=== PATIENT | male | born 1990 | race Caucasian/White ===

== ENCOUNTER 2020-08-03 09:47 | Outpatient (REF) | payer BC, SELFPAY | END 2020-08-03 09:48 | disposition home or self-care (01) | LOC: HO.LAB 09:47 | PROVIDERS: Visit Provider Internal Medicine | DX: Z20.828 Contact with and (suspected) exposure to other viral communicable diseases (principal) | CPT/HCPCS: C9803; U0003 ==

== ENCOUNTER 2023-09-03 17:27 | Inpatient (IN) | payer MEDICAID, SELFPAY ==
[2023-09-03 17:38] VITALS: BP 130/66; PULSE 142; RESP 22; TEMP 36.7; O2SAT 98; BMI 25.1
--- NOTE | 2023-09-03 18:01 | ED.ALCOHOL ---
HPI - Alcohol General Chief Complaint: General Medical Stated Complaint: Panic Attack/Anxiety per ems Time Seen by Provider: 09/03/23 17:27 Source: patient and family Mode of arrival: EMS Limitations: no limitations History of Present Illness HPI narrative: 32 yo male with PMH of prior substance abuse including pills and cocaine, ETOH use - lots of wine but will not quantify no alcohol today woke up feeling sweaty, heart racing, anxiety, tremors. No prior hx of alcohol withdrawal seizures. He has no fevers, cp/sob. MD complaint: alcohol withdrawal Last drink: Days (ago) (1) Chronic alcohol use: Yes Recent trauma: No Associated symptoms: nausea, diaphoresis and tremors Treatments prior to arrival: none Related Data Allergies Allergy/AdvReac Type Severity Reaction Status Date / Time Unable to Assess Allergy Verified 09/03/23 17:45 Review of Systems Review of Systems: Constitutional : No Fever, No Chills, pos sweats ENT/Mouth : No Ear Pain, No Nasal Congestion, No sore throat Eyes: No Eye Pain, No Swelling, No Redness Cardiovascular : No Chest Pain, No SOB, pos palpitations Respiratory : No Cough, No Sputum, No Dyspnea Gastrointestinal : pos Nausea, No Vomiting, No Diarrhea, No Hematochezia, No Melena Genitourinary : No Dysuria, No Urinary Frequency, No Hematuria Musculoskeletal : No Myalgias Skin : No Skin Lesions, No rash Neuro : No Weakness, No Numbness, No Paresthesias, No Dizziness, No Headache Psych : positive Anxiety, no Depression, no SI/HI All other systems reviewed and are negative PMFSH Past Medical History Onset Date is defined in the Problem List Problems that require an onset date and time if occurred within 24 hrs of arrival to the ED Aortic Dissection and Rupture; Neurologic impairment; Cardiopulmonary Arrest; Endotracheal Intubation; Insertion or Replacement of Mechanical Circulatory Assist Device Medical History (Updated 09/03/23 @ 19:01 by Yany Bledsoe DO) Alcohol abuse Active substance abuse Social History Social History (Updated 09/03/23 @ 18:04 by Yany Bledsoe DO) Alcohol intake: current Alcohol intake frequency: 3 or more drinks per day Alcohol type: wine Patient Tobacco Use Status: Tobacco use Unknown Smoked in Last 30 Days: No Use of substances other than those prescribed or required for medical reasons: No Advance Directives: No Advance Directives Information Provided: No Physical Exam ED Vital Signs: Vital Signs - 24 hr 09/03/23 17:38 09/03/23 18:07 Temperature 98.1 F Pulse Rate 142 H 90 Respiratory Rate 22 H 17 Blood Pressure 130/66 131/81 Pulse Oximetry 98 96 Oxygen Delivery Method Room Air Room Air BMI result Body Mass Index 25.1 Appearance: Alert. Oriented X3. anxious mild acute distress. Eyes: Pupils equal, round and reactive to light. ENT: Pharynx dry MM, tongue fasciculations Neck: Normal inspection. Neck supple. CVS: tachycardic heart rate and rhythm. Pulses normal. Respiratory: No respiratory distress. Breath sounds normal. Abdomen: Soft and nontender. Skin: Skin warm and diaphoretic Normal skin color. Normal skin turgor. Extremities: No lower extremity edema. Neuro: Oriented X 3. No motor deficit. No sensory deficit. Course Course Course Narrative: still tremors and tongue fasciculations - will admit and start on phenobarb Medical Decision Making Medical Decision Making [facility] Narrative: 32 yo male hx of substance abuse - garth been drinking too much wine recently he will not quantify how much. he states no alcohol today, he is tremulous tachycardic, sweating. At this time labs, EKG, IV thiamine, IV ativan, he has no SI/HI. Will obtain basic labs and hydrate. No prior hx of seizures. Possible admit vs outpatient detox Differential Diagnosis Differential Diagnoses: The differential diagnosis associated with the presentation includes alcohol withdrawal, substance abuse, lyte abnormality Admission/Observation Consideration of admission/observation: Escalation of care including admission/observation considered admit for ETOH withdrawal start on phenobarb drip Consult Healthcare Provider Management of the patient was discussed with: Hospitalist (will admit) Lab Data [facility] Lab Attestation statement: I reviewed the patient's lab results. 09/03/23 17:55 09/03/23 17:55 Labs: Lab Results 09/03/23 Range/Units 17:55 WBC 5.8 (4.8-10.8) X10*3/uL RBC 4.87 (4.60-5.80) X10*6/uL Hgb 15.3 (14.0-18.0) g/dl Hct 44.3 (42.0-52.0) % MCV 91.0 (80.0-98.0) fL MCH 31.4 (27.0-33.0) pg MCHC 34.5 (31.0-36.0) g/dl RDW 13.6 (11.0-16.0) % Plt Count 203 (160-400) X10*3/uL MPV 8.9 L (9.4-12.4) fL Immature Gran % (Auto) 0.2 (0.0-0.4) % Neut % (Auto) 75.0 H (45-73) % Lymph % (Auto) 14.2 L (20-40) % [place] % (Auto) 9.1 (2-11) % Eos % (Auto) 0.3 (0-4) % Baso % (Auto) 1.2 (0-2) % Lymph # (Auto) 0.8 L (1.2-4.9) X10*3/uL [place] # (Auto) 0.5 (0.1-1.2) X10*3/uL Eos # (Auto) 0.0 (0.0-0.4) X10*3/uL Baso # (Auto) 0.1 (0.0-0.2) X10*3/uL Abs Immat Gran (auto) 0.01 (0.00-0.03) X10*3/uL Absolute Neuts (auto) 4.4 (2.0-8.3) x10*3/uL Absolute Nucleated RBC 0.000 (0.0-0.012) X10*3/uL Nucleated RBC % (auto) 0.0 (0.0-0.2) /100WBC Sodium 139 (135-145) mmol/L Potassium 4.1 (3.3-5.1) mmol/L Chloride 97 (96-108) mmol/L Carbon Dioxide 20 L (22-29) mmol/L Anion Gap 26 H (12-20) BUN 11 (9-16) mg/dL Creatinine 0.92 (0.5-1.4) mg/dL Estim Creat Clear Calc 110.4 Estimated GFR > 60 Random Glucose 125 H (60-115) mg/dL Calcium 11.5 H (8.4-10.2) mg/dL Magnesium 1.5 L (1.6-2.6) mg/dL Total Bilirubin 0.8 (0.0-1.0) mg/dL Direct Bilirubin 0.3 (0.0-0.5) mg/dL AST 298 H (5-37) U/L ALT 291 H (0-40) U/L Alkaline Phosphatase 113 (39-117) U/L Total Protein 8.9 H (6.5-8.0) g/dL Albumin 4.9 (3.5-5.0) g/dL Ethyl Alcohol < 10 mg/dL Influenza Type A (PCR) NEGATIVE (Negative) Influenza Type B (PCR) NEGATIVE (Negative) RSV RNA Qual (PCR) NEGATIVE (Negative) SARS-CoV-2 RNA (RT-PCR) NEGATIVE (Negative) Independent Interpretation I performed an independent interpretation of an: EKG Interpretation: Rate: 90 Rhythm: NSR [place]: normal Normal P waves. Normal BA. Normal QRS complex. ST T wave : normal no MARKOS qTC: 442 prior studies: no acute ischemia The study has been interpreted contemporaneously by me. . Independent Historian Clinical information obtained from an independent historian. History obtained from or confirmed by: Parent and EMS Medications Administered Discontinued Medications Generic Name Dose Route Start Last Admin Trade Name Freq PRN Reason Stop Dose Admin Sodium Chloride 1,000 mls @ 999 mls/hr 09/03/23 17:45 09/03/23 18:03 Ns IV 09/03/23 18:45 999 mls/hr .Q1H1M ERICKA Administration Thiamine HCl 200 mg/ Sodium 102 mls @ 204 mls/hr 09/03/23 17:52 09/03/23 18:02 Chloride IV 09/03/23 18:21 204 mls/hr ONCE ONE Administration Lorazepam 1 mg 09/03/23 17:45 09/03/23 17:51 Lorazepam 2 Mg/Ml Vial IVPUSH 09/03/23 17:46 1 mg STAT STA Administration Lorazepam 1 mg 09/03/23 17:52 09/03/23 17:54 Lorazepam 2 Mg/Ml Vial IVPUSH 09/03/23 17:53 1 mg STAT STA Administration Critical Care Time Critical Care Time Critical Care Time: Yes Total Critical Care Time: 60 Attestation: repeat fluids, ativan, lyte abnormality, phenobarb protocol. I attest to this time spent taking care of the patient Discharge Plan Discharge Clinical Impression: Hypomagnesemia, Elevated LFTs, Alcoholic ketoacidosis Alcohol withdrawal Qualifiers: Complication of substance-induced condition: with unspecified complication Qualified Code(s): F10.939 - Alcohol use, unspecified with withdrawal, unspecified Patient Disposition: Admitted As Inpatient
[2023-09-03 18:07] VITALS: BP 131/81; PULSE 90; RESP 17; O2SAT 96
--- NOTE | 2023-09-03 18:11 | PC.NURSE ---
pt moved from behavioral pod to ED bed 21 as pt is tachycardic, sob, diaphoretic/chills, unable to control tremors/shakiness - pt admits to drinking more wine than usual lately but states he has not had a drink in 3 days. mom reports pt has been presenting with increased depression, drinking more than usual etc. pt denies pain, denies history of alcohol w/d or seizures. reports abdominal upset and diarrhea the past few days. denies SI/HI. pt educated on alcohol w/d signs and symptoms, discussed plan of care. #18g iv RAC, labs sent, ekg done, pt on panel monitor, medicated per mar with ativan. iv fluids running. call frey within reach
--- NOTE | 2023-09-03 19:05 | PHA.MEDREC ---
Pharmacy Consult ? Medication Reconciliation Pharmacy has completed the medication reconciliation. Patient takes melatonin every once in awhile. Reports up to 5 tablets of 5 mg. Diane Pool, BernyD
--- NOTE | 2023-09-03 19:13 | PM.IMHP ---
History of Present Illness Date of Service: 09/03/23 Chief Complaint: Alcohol withdrawal This is a 32-year-old male with pertinent history of alcohol use disorder, former cocaine use disorder who presents to the emergency department concerns of alcohol withdrawal. Patient states that his last drink was 2 days prior to presentation. He has been having tremors, is anxious, nauseous and sweating over the last 2 days. Had 1 episode of alcohol withdrawal previously. No history of alcohol withdrawal seizures or delirium tremens. Patient states he drinks a large quantity of wine every day. Denies current illicit drug use. No fever, chills, chest discomfort, palpitations, shortness of breath, abdominal pain, changes in urinary or bowel habits. In the emergency department, patient was initiated on phenobarb protocol. Review of Systems Constitutional: Constitutional: Reports chills and Reports excessive sweating Cardiovascular: Cardiovascular: Reports no additional cardiovascular complaints Respiratory: Respiratory: Reports no additional respiratory complaints Gastrointestinal: Gastrointestinal: Reports nausea Genitourinary: Genitourinary: Reports no additional male genitourinary complaints Neurologic: Reports tremor(s) Psychiatric: Psychiatric: Reports anxiety Endocrine: Endocrine: Reports excessive sweating [facility] Medical History Alcohol abuse Active substance abuse Pertinent family history: No family history of early CAD Social History Alcohol intake: current Alcohol intake frequency: 3 or more drinks per day Alcohol type: wine Patient Tobacco Use Status: Tobacco use Unknown Smoked in Last 30 Days: No Use of substances other than those prescribed or required for medical reasons: No Advance Directives: No Advance Directives Information Provided: No Meds Allergies Allergy/AdvReac Type Severity Reaction Status Date / Time Unable to Assess Allergy Verified 09/03/23 17:45 Active Medications: Current Medications Magnesium Sulfate (Magnesium Sulfate/H2o) 2 gm in 50 mls @ 25 mls/hr IV ONCE ONE Stop: 09/03/23 19:52 Dextrose/Sodium Chloride (D5ns) 1,000 mls @ 100 mls/hr IVCONT .Q10H [facility] Pharmacy Consult (Consult Rx Etoh Phenob Im/Po) 1 each MISCELLANE ONCE PRN; Protocol PRN Reason: Consult order Phenobarbital (Phenobarbital 15 Mg Tablet) 45 mg PO BID [facility]; Protocol Stop: 09/05/23 21:01 Phenobarbital (Phenobarbital 30 Mg Tablet) 30 mg PO BID ERICKA; Protocol Stop: 09/07/23 21:01 Phenobarbital (Phenobarbital 15 Mg Tablet) 15 mg PO DAILY ERICKA; Protocol Stop: 09/09/23 09:01 Phenobarbital Sodium (Phenobarbital Sodium 130 Mg/Ml Im Once) 328.9 mg IM ONCE ONE; Protocol Stop: 09/03/23 19:31 Phenobarbital Sodium (Phenobarbital Sodium 130 Mg/Ml Vial Im Q3hx2) 247 mg IM Q3H ERICKA; Protocol Stop: 09/04/23 01:31 Home Medications Medication Instructions Recorded Confirmed Last Taken Type melatonin 5 mg tablet 10 mg PO BEDTIME PRN Insomnia 09/03/23 09/03/23 Unknown History Physical Exam Vital Signs and Narrative: Vital Signs: Last Vital Signs Temp 98.1 F 09/03/23 17:38 Pulse 90 09/03/23 18:07 Resp 17 09/03/23 18:07 BP 131/81 09/03/23 18:07 Pulse Ox 96 09/03/23 18:07 O2 Del Method Room Air 09/03/23 18:07 BMI result Body Mass Index 25.1 Middle-aged male lying in bed in no distress Neck supple, no JVD Regular rate and rhythm, S1-S2 heard Regular breath sounds bilaterally, no wheezing or crackles appreciated Abdomen soft nontender, no guarding, no rigidity Patient is awake, alert and oriented to self, place, time and person ; no focal motor deficit Psych: Anxious No pedal edema Results Labs 09/03/23 17:55 09/03/23 17:55 Labs: Laboratory Results - last 24 hr 09/03/23 17:55 MCV 91.0 MCH 31.4 MCHC 34.5 RDW 13.6 Plt Count 203 MPV 8.9 L Immature Gran % (Auto) 0.2 Neut % (Auto) 75.0 H Lymph % (Auto) 14.2 L [place] % (Auto) 9.1 Eos % (Auto) 0.3 Baso % (Auto) 1.2 Lymph # (Auto) 0.8 L [place] # (Auto) 0.5 Eos # (Auto) 0.0 Baso # (Auto) 0.1 Abs Immat Gran (auto) 0.01 Absolute Neuts (auto) 4.4 Absolute Nucleated RBC 0.000 Nucleated RBC % (auto) 0.0 Anion Gap 26 H Estim Creat Clear Calc 110.4 Estimated GFR > 60 Random Glucose 125 H Calcium 11.5 H Magnesium 1.5 L Total Bilirubin 0.8 Direct Bilirubin 0.3 AST 298 H ALT 291 H Alkaline Phosphatase 113 Total Protein 8.9 H Albumin 4.9 Ethyl Alcohol < 10 Influenza Type A (PCR) NEGATIVE Influenza Type B (PCR) NEGATIVE RSV RNA Qual (PCR) NEGATIVE SARS-CoV-2 RNA (RT-PCR) NEGATIVE Assessment and Plan (1) Alcohol withdrawal: Qualifiers: Complication of substance-induced condition: with unspecified complication Qualified Code(s): F10.939 - Alcohol use, unspecified with withdrawal, unspecified Status: Acute (2) Hypomagnesemia: Status: Acute (3) Elevated LFTs: Status: Acute Plan This is a 32-year-old male with pertinent history of alcohol use disorder, former cocaine use disorder who presents to the emergency department concerns of alcohol withdrawal. #. Alcohol withdrawal in a patient with alcohol use disorder: Resuscitating with IV crystalloids. Initiating thiamine. Consulting Addiction Team and care team. Initiated on phenobarb protocol in the ER. Monitor CIWA #. Hypomagnesemia: Repleted #. Elevated transaminase, likely in the setting of alcohol use. #. Substance use disorder: Monitor for withdrawal. UDS pending DVT prophylaxis: Lovenox Full code Quality Stroke Does the patient have a stroke diagnosis?: No VTE Prior VTE?: No VTE Risk Level:: Medical - moderate - high VTE Device Contraindication: Treatment Not Indicated VTE Drug Contraindication: N/A - Med Ordered
[2023-09-03 19:50] VITALS: BP 124/81; PULSE 101; RESP 16; TEMP 36.8; O2SAT 100
--- NOTE | 2023-09-03 19:55 | PC.NURSE ---
this rn assumed care of pt. pt medicated per mar at this time, delay in medications due to pt having one access. pt set up with dinner at this time, no acute distress noted.
[2023-09-03 22:42] VITALS: BP 119/77; PULSE 101; RESP 20; O2SAT 98
--- NOTE | 2023-09-03 23:16 | PC.NURSE ---
this rn assisted pt to bathroom at this time. pt ambulated with steady gait. urine sample obtained and sent to lab at this time.
--- NOTE | 2023-09-04 05:57 | PC.NURSE ---
delay in fluid admin due to original fluids being late.
[2023-09-04 06:43] VITALS: BP 140/89; PULSE 67; RESP 20; TEMP 36.8; O2SAT 98
[2023-09-04 07:40] VITALS: BP 119/77; PULSE 69; RESP 17; O2SAT 99
[2023-09-04 07:43] LABS: Anion Gap 12 (12-20); Blood Urea Nitrogen 10 mg/dL (9-16); Calcium 8.9 mg/dL (8.4-10.2); Carbon Dioxide 27 mmol/L (22-29); Chloride 100 mmol/L (96-108); Creatinine Clr Calc Pharmacy 128.6; Estimated Glomerular Filt Rate > 60; Glucose Random 99 mg/dL (60-115); Potassium 3.8 mmol/L (3.3-5.1); Sodium 135 mmol/L (135-145)
--- NOTE | 2023-09-04 09:34 | PC.NURSE ---
alert and oriented, respirations even and unlabored. ambulated to bathroom independently with steady gait. ciwa of 4, tremors noted. medicated per the MAR, offering no complaints. iv fluids infusing. call frey within reach.
--- NOTE | 2023-09-04 11:28 | HO.PM.IMPN ---
Subjective Subjective Date of Service: 09/04/23 Review of Systems Follow up ETOH withdrawal feeling better no pain Physical Exam Vital Signs: Vital Signs: Last Vital Signs Temp 98.3 F 09/04/23 06:43 Pulse 69 09/04/23 07:40 Resp 17 09/04/23 07:40 BP 119/77 09/04/23 07:40 Pulse Ox 99 09/04/23 07:40 O2 Del Method Room Air 09/04/23 07:40 BMI result Body Mass Index 25.1 Appearing in no acute distress lung sounds are clear to auscultation heart regular rate rhythm, clear S1, S2 positive bowel sounds, abdomen is soft, nontender neuro patient is alert x3, no focal deficits Objective Data Active Medications Acetaminophen (Acetaminophen 325 Mg Tablet) 650 mg PO Q6H PRN PRN Reason: Pain, Mild (Pain Scale 1-3) Enoxaparin Sodium (Enoxaparin Sodium 40 Mg/0.4 Ml Syringe) 40 mg SUBCUT Q24H [facility] Last Admin: 09/03/23 20:34 Dose: Not Given Documented By: ANNI Non-Admin Reason: Patient Refused Dextrose/Sodium Chloride (D5ns) 1,000 mls @ 100 mls/hr IVCONT .Q10H [facility] Last Admin: 09/04/23 06:01 Dose: 100 mls/hr Documented By: ANNI Melatonin (Melatonin 3 Mg Tablet) 6 mg PO BEDTIME PRN PRN Reason: Insomnia Ondansetron HCl (Ondansetron Hcl 4 Mg/2 Ml Vial) 4 mg IVPUSH Q8H PRN PRN Reason: Nausea and Vomiting Pharmacy Consult (Consult Rx Etoh Phenob Im/Po) 1 each MISCELLANE ONCE PRN; Protocol PRN Reason: Consult order Phenobarbital (Phenobarbital 15 Mg Tablet) 45 mg PO BID [facility]; Protocol Stop: 09/05/23 21:01 Last Admin: 09/04/23 09:15 Dose: 45 mg Documented By: TAMERA Phenobarbital (Phenobarbital 30 Mg Tablet) 30 mg PO BID [facility]; Protocol Stop: 09/07/23 21:01 Phenobarbital (Phenobarbital 15 Mg Tablet) 15 mg PO DAILY [facility]; Protocol Stop: 09/09/23 09:01 Sodium Chloride (0.9 % Sodium Chloride Flush 3 Ml Syringe) 3 ml IVFLUSH QSHIFT [facility] Last Admin: 09/04/23 09:15 Dose: Not Given Documented By: TAMERA Non-Admin Reason: IV Running Thiamine HCl (Thiamine Hcl 100 Mg Tablet) 100 mg PO DAILY [facility] Last Admin: 09/04/23 09:15 Dose: 100 mg Documented By: TAMERA Labs 09/04/23 06:08 09/04/23 06:08 Labs: Laboratory Results - last 24 hr 09/03/23 09/03/23 09/03/23 17:55 19:32 22:53 MCV 91.0 MCH 31.4 MCHC 34.5 RDW 13.6 Plt Count 203 MPV 8.9 L Immature Gran % (Auto) 0.2 Neut % (Auto) 75.0 H Lymph % (Auto) 14.2 L [place] % (Auto) 9.1 Eos % (Auto) 0.3 Baso % (Auto) 1.2 Lymph # (Auto) 0.8 L [place] # (Auto) 0.5 Eos # (Auto) 0.0 Baso # (Auto) 0.1 Abs Immat Gran (auto) 0.01 Absolute Neuts (auto) 4.4 Absolute Nucleated RBC 0.000 Nucleated RBC % (auto) 0.0 VBG pH 7.44 H VBG pCO2 37 VBG pO2 54 VBG HCO3 26 VBG O2 Saturation 86.0 VBG Base Excess 2.4 Anion Gap 26 H Estim Creat Clear Calc 110.4 Estimated GFR > 60 Random Glucose 125 H Calcium 11.5 H Magnesium 1.5 L Total Bilirubin 0.8 Direct Bilirubin 0.3 AST 298 H ALT 291 H Alkaline Phosphatase 113 Total Protein 8.9 H Albumin 4.9 Urine Opiates Screen Not Detected Urine Fentanyl Screen Not Detected Ur Barbiturates Screen POSITIVE H Ur Phencyclidine Scrn Not Detected Ur Amphetamines Screen Not Detected U Benzodiazepines Scrn Not Detected Urine Cocaine Screen Not Detected U Marijuana (THC) Screen Not Detected Ethyl Alcohol < 10 Influenza Type A (PCR) NEGATIVE Influenza Type B (PCR) NEGATIVE RSV RNA Qual (PCR) NEGATIVE SARS-CoV-2 RNA (RT-PCR) NEGATIVE 09/04/23 06:08 MCV 92.9 MCH 31.8 MCHC 34.2 RDW 13.5 Plt Count 159 L MPV 9.9 Immature Gran % (Auto) 0.5 H Neut % (Auto) 58.9 Lymph % (Auto) 23.9 [place] % (Auto) 12.6 H Eos % (Auto) 3.1 Baso % (Auto) 1.0 Lymph # (Auto) 0.9 L [place] # (Auto) 0.5 Eos # (Auto) 0.1 Baso # (Auto) 0.0 Abs Immat Gran (auto) 0.02 Absolute Neuts (auto) 2.2 Absolute Nucleated RBC 0.000 Nucleated RBC % (auto) 0.0 VBG pH VBG pCO2 VBG pO2 VBG HCO3 VBG O2 Saturation VBG Base Excess Anion Gap 12 Estim Creat Clear Calc 128.6 Estimated GFR > 60 Random Glucose 99 Calcium 8.9 D Magnesium Total Bilirubin Direct Bilirubin AST ALT Alkaline Phosphatase Total Protein Albumin Urine Opiates Screen Urine Fentanyl Screen Ur Barbiturates Screen Ur Phencyclidine Scrn Ur Amphetamines Screen U Benzodiazepines Scrn Urine Cocaine Screen U Marijuana (THC) Screen Ethyl Alcohol Influenza Type A (PCR) Influenza Type B (PCR) RSV RNA Qual (PCR) SARS-CoV-2 RNA (RT-PCR) Assessment and Plan (1) Elevated LFTs: Status: Acute Plan 32-year-old male with pertinent history of alcohol use disorder, former cocaine use disorder who presents to the emergency department concerns of alcohol withdrawal. Alcohol withdrawal in a patient with alcohol use disorder feeling better IV fluids continue thiamine. Addiction Team and care team consult pending Initiated on phenobarb protocol Hypomagnesemia Repleted Elevated transaminase likely in the setting of alcohol use. Substance use disorder Monitor for withdrawal. DVT prophylaxis: Lovenox Attending Dr. Link Full code Quality Stroke Does the patient have a stroke diagnosis?: No VTE Prior VTE?: No VTE Risk Level:: Medical - moderate - high VTE Device Contraindication: Treatment Not Indicated VTE Drug Contraindication: N/A - Med Ordered
[2023-09-04 15:50] VITALS: BP 136/85; PULSE 69; RESP 22; TEMP 36.6; O2SAT 98
--- NOTE | 2023-09-04 15:52 | MHC.RECOVRN ---
Met with pt in ED21 after consult placed to Addiction Medicine for alcohol use. Pt had been BIBA from home, reporting weakness, fatigue, uncontrolled tremors, diaphoretic. Upon evaluation, pt admitted for treatment of alcohol withdrawal, hypomagnesemia, and elevated LFTs. Pts mother present when t/w entered room, talking with pt about needing treatment for alcohol use. Difficult to engage in conversation with mother present. Pt did report alcohol use, one box of wine every 2 days. Pts mother concerned about patient's depression, pt states he only sees darkness. Educated pt and mother on different levels of care, including inpatient and outpatient tx. Mother insists pt needs inpatient tx, whether psychiatrically or for AUD. Pt seems ambivalent regarding inpatient treatment. Answered all questions and provided written resources. Will return at a later time to gather more history.
--- NOTE | 2023-09-04 15:54 | PC.NURSE ---
continues to offer no complaints, ambulates independently to bathroom. negative on ciwa scale. fluids infusing at this time
[2023-09-04 18:50] VITALS: BP 146/92; PULSE 69; RESP 16; TEMP 36.5; O2SAT 100
[2023-09-04 20:00] VITALS: BP 126/85; PULSE 80; RESP 17; TEMP 36.4; O2SAT 99
[2023-09-05] VITALS: BP 134/82; PULSE 67; RESP 20; TEMP 36.5; O2SAT 97
[2023-09-05 03:04] VITALS: BP 137/94; PULSE 78; RESP 20; TEMP 36.3; O2SAT 98
--- NOTE | 2023-09-05 05:55 | PC.NURSE ---
pt declines bed alarm, ambulates frequently to bathroom, steady gait noted. frequent safety checks, and camera remains in use.
[2023-09-05 08:00] VITALS: BP 129/92; PULSE 86; RESP 16; TEMP 36.6; O2SAT 98
--- NOTE | 2023-09-05 08:54 | HO.PM.IMPN ---
Subjective Subjective Date of Service: 09/05/23 Review of Systems Follow up ETOH withdrawal feeling better no pain Physical Exam Vital Signs: Vital Signs: Last Vital Signs Temp 97.8 F 09/05/23 08:00 Pulse 86 09/05/23 08:00 Resp 16 09/05/23 08:00 BP 129/92 H 09/05/23 08:00 Pulse Ox 98 09/05/23 08:00 O2 Del Method Room Air 09/05/23 08:00 BMI result Body Mass Index 25.1 Appearing in no acute distress lung sounds are clear to auscultation heart regular rate rhythm, clear S1, S2 positive bowel sounds, abdomen is soft, nontender neuro patient is alert x3, no focal deficits Objective Data Active Medications Acetaminophen (Acetaminophen 325 Mg Tablet) 650 mg PO Q6H PRN PRN Reason: Pain, Mild (Pain Scale 1-3) Enoxaparin Sodium (Enoxaparin Sodium 40 Mg/0.4 Ml Syringe) 40 mg SUBCUT Q24H [facility] Last Admin: 09/04/23 21:38 Dose: Not Given Documented By: KATY Non-Admin Reason: Patient Refused Folic Acid (Folic Acid 1 Mg Tablet) 1 mg PO DAILY [facility] Melatonin (Melatonin 3 Mg Tablet) 6 mg PO BEDTIME PRN PRN Reason: Insomnia Last Admin: 09/04/23 21:41 Dose: 6 mg Documented By: KATY Multivitamins/Vitamin C (Multivitamin Tablet) 1 tab PO DAILY [facility] Ondansetron HCl (Ondansetron Hcl 4 Mg/2 Ml Vial) 4 mg IVPUSH Q8H PRN PRN Reason: Nausea and Vomiting Pharmacy Consult (Consult Rx Etoh Phenob Im/Po) 1 each MISCELLANE ONCE PRN; Protocol PRN Reason: Consult order Phenobarbital (Phenobarbital 15 Mg Tablet) 45 mg PO BID [facility]; Protocol Stop: 09/05/23 21:01 Last Admin: 09/04/23 18:52 Dose: 45 mg Documented By: SUSANA Phenobarbital (Phenobarbital 30 Mg Tablet) 30 mg PO BID [facility]; Protocol Stop: 09/07/23 21:01 Phenobarbital (Phenobarbital 15 Mg Tablet) 15 mg PO DAILY [facility]; Protocol Stop: 09/09/23 09:01 Sodium Chloride (0.9 % Sodium Chloride Flush 3 Ml Syringe) 3 ml IVFLUSH QSHIFT [facility] Last Admin: 09/05/23 00:00 Dose: 3 ml Documented By: KATY Thiamine HCl (Thiamine Hcl 100 Mg Tablet) 100 mg PO DAILY [facility] Last Admin: 09/04/23 09:15 Dose: 100 mg Documented By: TAMERA Labs 09/04/23 06:08 09/04/23 06:08 Assessment and Plan (1) Elevated LFTs: Status: Acute Plan 32-year-old male with pertinent history of alcohol use disorder, former cocaine use disorder who presents to the emergency department concerns of alcohol withdrawal. Alcohol withdrawal in a patient with alcohol use disorder feeling better IV fluids stopped continue thiamine, folic acid and MV Addiction Team and care team following, has o/p supports in place continue phenobarb protocol Hypomagnesemia Repleted Elevated transaminase in the setting of alcohol use. Substance use disorder Monitor for withdrawal. DISPO still with mild tremor, plan for dc likely tomorrow DVT prophylaxis: Lovenox Attending Dr. Link Full code Quality Stroke Does the patient have a stroke diagnosis?: No VTE Prior VTE?: No VTE Risk Level:: Medical - moderate - high VTE Device Contraindication: Treatment Not Indicated VTE Drug Contraindication: N/A - Med Ordered
[2023-09-05 12:00] VITALS: BP 135/85; PULSE 70; RESP 16; TEMP 36.6; O2SAT 96
--- NOTE | 2023-09-05 12:40 | MHC.RECOVRN ---
Met with pt in 485 to follow up after meeting yesterday. Pt sitting in bed, awake, alert, easily engages in conversation. Pt reports drinking daily x 2 years, approx one year at this amount (3 liters/one box every 2 days). Pt reports the ending of a relationship precipitated daily alcohol use. Pt is currently out of work for another week and reports stress related to hospital admission bills. Educated pt on [facility], encouraged pt to meet with them Wednesday. Discussed recovery support options, pt reports interest in naltrexone and initiating care at the [facility]. Educated pt on naltrexone and intake process. Plan for [facility] to call pt Wednesday morning to schedule intake appt. Pt provided with [facility] information as well as t/w contact information if needed. Pt denies questions or concerns for t/w.
--- NOTE | 2023-09-05 12:53 | MHC.CM.PN ---
Pt self-care, lives alone at home. Pts mother to transport him home. Recovery team involved and pt interested in services. No HCP, No PCP.
[2023-09-05 15:44] VITALS: BP 135/93; PULSE 70; RESP 20; TEMP 36.6; O2SAT 98
[2023-09-05 19:15] VITALS: BP 132/89; PULSE 77; RESP 16; TEMP 36.6; O2SAT 99
[2023-09-06] VITALS: BP 144/74; PULSE 85; RESP 18; TEMP 37.1; O2SAT 96
[2023-09-06 06:06] VITALS: BP 144/98; PULSE 100; RESP 18; TEMP 37; O2SAT 98
--- NOTE | 2023-09-06 07:42 | PM.DS ---
DS: Providers Provider Date of Service: 09/06/23 Date of admission: 09/04/23 11:55 Primary care physician: Unknown Physician Consults: 09/03/23 19:12 Addiction Medicine Routine Consulting Provider: Addiction Covering Reason for consultation: alcohol use disorder Consult to Care Team Routine Comment: Reason for consultation: alcohol use disorder DS: Diagnosis Discharge Diagnosis (1) Elevated LFTs: Status: Acute DS: Summary Hospital Course Hospital Course: This is a 32-year-old male with pertinent history of alcohol use disorder, former cocaine use disorder who presents to the emergency department concerns of alcohol withdrawal. Patient states that his last drink was 2 days prior to presentation. He has been having tremors, is anxious, nauseous and sweating over the last 2 days. Had 1 episode of alcohol withdrawal previously. No history of alcohol withdrawal seizures or delirium tremens. Patient states he drinks a large quantity of wine every day. Denies current illicit drug use. No fever, chills, chest discomfort, palpitations, shortness of breath, abdominal pain, changes in urinary or bowel habits. In the emergency department, patient was initiated on phenobarb protocol. 32-year-old man treated for alcohol use and withdrawal with history of alcohol use disorder. Treated with IV fluids, thiamine, folic acid, multivitamin and phenobarbital protocol. Seen evaluated by addiction team and offered outpatient supports. Encouraged to stop drinking alcohol in seek assistance in the community. He did have some episodes of hypomagnesemia which is not a surprise in light of alcohol use and poor nutrition. Transaminitis also noted but resolved. At this time patient is stable and ready for discharge home. Time Attestation Discharge coordination time: Greater than 30 minutes Quality: Safe Use of Opioids Does Pt have an Active Cancer Diagnosis on the Problem List?: No Quality: Stroke Does the patient have a stroke diagnosis?: No Physical Exam Vital Signs: Vital Signs: Last Vital Signs Temp 98.6 F 09/06/23 06:06 Pulse 100 09/06/23 06:06 Resp 18 09/06/23 06:06 BP 144/98 H 09/06/23 06:06 Pulse Ox 98 09/06/23 06:06 O2 Del Method Room Air 09/06/23 06:06 BMI result Body Mass Index 25.1 Appearing in no acute distress head is normocephalic atraumatic eyes pupils are PERRLA sclera is anicteric mouth throat mucous membranes are intact and moist neck is supple no lymphadenopathy, no JVD noted lung sounds are clear to auscultation heart regular rate rhythm, clear S1, S2 positive bowel sounds, abdomen is soft, nontender neuro patient is alert x3, no focal deficits Discharge Plan Discharge Anticipated Discharge Date/Time: 09/06/23 07:40 Patient Disposition: Home, Self-Care Discharge Diagnosis: Alcohol use and withdrawal Hypomagnesemia Transaminitis Discharge Medications: Continued melatonin 5 mg Tablet 10 mg PO BEDTIME PRN (Reason: Insomnia) Discharge Orders: Discharge Order (Routine); Ordered 09/06/23 Ordered By: Frances Bo Diet: Advance to usual diet Activity on Discharge: As tolerated Stand Alone Forms: Patient Portal Discharge page Care Plan Goals: Stop drinking alcohol. Seek outpatient resources for assistance with this Can take folic acid, thiamine and multivitamin [id number] Health Concerns: Alcohol use and withdrawal Hypomagnesemia Transaminitis Plan of Treatment: Follow-up with primary care provider as needed Take all medications as prescribed Assessment: See discharge summary Discharge Date/Time: 09/06/23 10:10
[2023-09-06 07:46] VITALS: BP 135/87; PULSE 76; RESP 20; TEMP 36; O2SAT 97
--- NOTE | 2023-09-06 09:35 | MHC.CM.PN ---
PER HOSPITALIST ANTIC PT WILL DC HOME SELF CARE TODAY, RECOVERY TEAM NOTIFIED VIA TIGER AND REFERRAL FAXED TO [facility]. PT'S MOTHER FOR TRANSPORT AND PT WILL ARRANGE.
== END 2023-09-06 10:10 | disposition home or self-care (01) | DRG 641 ==
LOC: HO.ED 19:01 → HO.EDOVER 19:21 → HO.IMC 09-04 17:23
PROVIDERS: Admitting Provider Student in an Organized Health Care Education/Training Program; Emergency Provider Emergency Medicine; Visit Provider Nurse Practitioner Acute Care
DX: E83.42 Hypomagnesemia (principal); F10.139 Alcohol abuse with withdrawal, unspecified; Z20.822 Contact with and (suspected) exposure to COVID-19; Z87.891 Personal history of nicotine dependence
CPT/HCPCS: 0241U; 36415; 80048; 80076; 80307; 82803; 83735; 85025; 93005; 99285; J1650; J2060; J2560; J3411; J3475

== ENCOUNTER → 2023-09-03 17:59 | Outpatient (BNV) | payer MEDICAID, SELFPAY | PROVIDERS: Admitting Provider Student in an Organized Health Care Education/Training Program; Emergency Provider Emergency Medicine; Visit Provider Internal Medicine Cardiovascular Disease | DX: R00.2 Palpitations (principal) | CPT/HCPCS: 93010 ==

== ENCOUNTER → 2023-09-03 19:12 | Outpatient (BNV) | payer MEDICAID, SELFPAY | PROVIDERS: Admitting Provider Student in an Organized Health Care Education/Training Program; Emergency Provider Emergency Medicine; Visit Provider Student in an Organized Health Care Education/Training Program | DX: R79.89 Other specified abnormal findings of blood chemistry (principal) | CPT/HCPCS: 99222; 99232; 99239 ==

== ENCOUNTER 2023-09-16 14:57 | Outpatient (AMB) | payer MEDICAID, SELFPAY ==
[2023-09-16 16:33] VITALS: BP 138/78; PULSE 92; RESP 15
--- NOTE | 2023-09-16 16:33 | A.OFFVISCC_ITS ---
Intake Vital Signs 09/16/23 16:33 BP 138/78 Blood Pressure Location Lt brachial Position Sitting Respiration 15 Pulse 92 Pulse Source Pulse Oximeter Intake Visit Reasons: New Intake Allergies Unable to Assess Allergy (Verified 09/03/23 17:45) HPI New Intake HPI Details Pt presents to the clinic to establish care He was recently hospitalized for alcohol withdrawal at [facility] where he was treated with phenobarb He was referred to the clinic by the [facility] Patient is actively intoxicated at time of intake, was driven to his clinic by his mother who waited in the waiting room He is able to participate in conversation, however he appears to be a poor historian, minimizing alcohol intake and initially denying any alcohol use since discharge During exam he reported hives all over his body, he did appear to have well circumscribed, erythmatous placques covering his arms and trunk that he reports are all over his body He denies using any new soaps, medications, food, or detergents He reports he started drinking alcohol regularly approximately a year and a half ago when he experienced the break up of a long-term relationship He reports prior to that his drinking was social Prior to hospital admission he was drinking wine daily, he would not specify how much When asked if he had any alcohol since discharge he initially denied, then later admitted he had been drinking Titos for the past few days 6 shots He is stably housed, states he has his own condo that he lives in alone He shares a 5 yo daughter with his ex-partner He reports his aunt is a good support for him, says his mother is old school and he feels that their communication styles do not mesh well 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 He reports having a prescription for sertraline at home that he has not yet filled He denies previous or present thoughts of harming self He was agreeable to a counseling referral NKA Denies any active medical conditions, has no home meds PFSH Medical History Alcohol abuse Active substance abuse Social History Household Members: None Housing: Condominium Do you presently have visiting nurse or other home services: No Alcohol intake: current Alcohol intake frequency: 3 or more drinks per day Alcohol type: wine Patient Tobacco Use Status: Former Tobacco user Tobacco use type: Smokeless Tobacco service: No Review of Systems Const Reports as per HPI ENT Denies throat swelling and Denies tongue swelling Resp Reports no additional complaints and Denies wheezing Psych Reports as per HPI Aller/Immun Reports urticaria, Denies throat swelling, Denies tongue swelling and Denies wheezing Physical Exam Const General: no acute distress and well developed Nutritional Appearance: average body habitus HEENT Mouth: mucous membranes dry, normal lip, no muffled voice and normal tongue Resp Effort & Inspection: normal respiratory effort, able to speak in complete sentences, no audible wheezes and respiratory effort not decreased Skin Rashes: rashes noted hives diffuse full body borders sharp and raised, color blanching and red, distribution (fully covering bilateral arms and trunk anteriorly and posteriorly), morphology and surface blanching Psych Appearance: grossly normal Mental Status: other (intoxicated) Speech and movement: Slurred speech present (intermittent slurring) Affect: Sad affect present Attitude: Guarded attititude/behavior present Thought process: Circumstantial thought process present Thought content: suicidality, no homicidality and Depressive thoughts present Assessment & Plan Assessment & Plan (1) Alcohol use disorder, severe, dependence: Code(s): F10.20 - Alcohol dependence, uncomplicated Plan: -Start naltrexone -Educated patient about withdrawal and provided written education -Discussed harm reduction -Counseling referral placed, he is declining retail performance coach referral at this time -Follow up 1 week (2) Urticaria: Code(s): L50.9 - Urticaria, unspecified Plan: -Prednisone burst 40mg daily x 5 days, provided medication education -Educated pt to start taking benedryl 50mg 2-3 times daily during course of prednisone -Reviewed signs and symptoms of anaphylactic reaction and when to seek higher level of care -Provided written instructions regarding medications and when to seek higher level of care Orders: Referrals Counseling Referral F10.20 - Alcohol dependence, uncomplicated Medications: New prednisone 40 mg (2 x 20 mg) PO DAILY 5 tabs 0RF naltrexone Take 1/2 tab for the first 3 days, advance to full tab if well tolerated 50 mg PO DAILY 30 tabs 0RF folic acid 1 mg PO DAILY 30 tabs 0RF thiamine HCl (vitamin B1) 100 mg PO DAILY 30 tabs 0RF Coding Level of Care Code New Pt Level 4 (81514) Diagnoses Alcohol use disorder, severe, dependence F10.20 Urticaria L50.9
== END 2023-09-16 16:22 | disposition home or self-care (01) ==
PROVIDERS: Visit Provider Nurse Practitioner Family
DX: F10.20 Alcohol dependence, uncomplicated (principal); L50.9 Urticaria, unspecified
CPT/HCPCS: 99204

== ENCOUNTER → 2023-09-16 14:57 | Outpatient (BNVA) | payer MEDICAID, SELFPAY | PROVIDERS: Visit Provider Nurse Practitioner Family | DX: F10.20 Alcohol dependence, uncomplicated (principal); L50.9 Urticaria, unspecified | CPT/HCPCS: 99212 ==

== ENCOUNTER 2023-09-24 13:15 | Outpatient (AMB) | payer MEDICAID, SELFPAY ==
--- NOTE | 2023-09-24 13:16 | A.OFFVISCC_ITS ---
Intake Vital Signs 09/24/23 13:23 BP 120/70 Blood Pressure Location Rt radial Position Sitting Respiration 19 Pulse 100 Pulse Source Pulse Oximeter Pulse Oximetry (%) 96 Oxygen Delivery Method Room Air Intake Visit Reasons: MAT Visit Allergies Unable to Assess Allergy (Verified 09/03/23 17:45) HPI MAT Visit HPI Details Patient presents for AUD treatment and follow up He presents with brighter affect this week, He reports in the last week drinking 1 3/4 cups of wine only He says his mother has not been happy about this, but he feels as though this is progress for him He reports his rash noted upon his previous visit is gone and states he found the prednisone to be very helpful, he thinks it may have been the melatonin causing the reaction. He is continuing to have poor sleep. Sleep hygiene discused with him, he denies drinking coffee or having his tv on immediately prior to bed, reports his brain won't shut off . He was unable to pick remover his naltrexone until 3 days ago due to medication shortage. He denies concerns for side effects. He is interested in the vivitrol injection. [facility] Medical History Alcohol abuse Active substance abuse Social History Household Members: None Housing: Condominium Do you presently have visiting nurse or other home services: No Alcohol intake: current Alcohol intake frequency: 3 or more drinks per day Alcohol type: wine Patient Tobacco Use Status: Former Tobacco user Tobacco use type: Smokeless Tobacco service: No Review of Systems Const Reports as per HPI and Reports difficulty sleeping Skin/Breast Denies rash Physical Exam Vital Signs: Last Vital Signs Pulse 100 09/24/23 13:23 Resp 19 09/24/23 13:23 BP 120/70 09/24/23 13:23 Pulse Ox 96 09/24/23 13:23 Oxygen Delivery Method Room Air 09/24/23 13:23 Const General: cooperative, healthy appearing and no acute distress Nutritional Appearance: average body habitus Resp Effort & Inspection: normal respiratory effort and able to speak in complete sentences Psych Appearance: grossly normal and well kempt Mental Status: mental status grossly normal Speech and movement: Normal speech and movement present and Clear speech present Affect: normal affect Attitude: cooperative Assessment & Plan Assessment & Plan (1) Alcohol use disorder, severe, dependence: Code(s): F10.20 - Alcohol dependence, uncomplicated Plan: -He is asking for trazodone for sleep, at this time hydroxyzine seems to be a safer option until he is more stable in his recovery -Vivitrol rx written -Discussed recovery supports including 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 He continues to decline these options. -Follow up 1 week Medications: New naltrexone microspheres ER (Vivitrol) 380 mg IM Q4W 1 ea 5RF hydroxyzine HCl 25 mg PO BEDTIME PRN 14 tabs 0RF itching Coding Level of Care Code Est Pt Level 3 (60212) Diagnoses Alcohol use disorder, severe, dependence F10.20
[2023-09-24 13:23] VITALS: BP 120/70; PULSE 100; RESP 19; O2SAT 96
== END 2023-09-24 14:28 | disposition home or self-care (01) ==
PROVIDERS: Visit Provider Nurse Practitioner Family
DX: F10.20 Alcohol dependence, uncomplicated (principal)
CPT/HCPCS: 99213

== ENCOUNTER → 2023-09-24 13:15 | Outpatient (BNVA) | payer OTHER, SELFPAY | PROVIDERS: Visit Provider Nurse Practitioner Family | DX: F10.20 Alcohol dependence, uncomplicated (principal) | CPT/HCPCS: 99212 ==

== ENCOUNTER 2023-11-19 10:43 | Outpatient (AMB) | payer MEDICAID, SELFPAY ==
--- NOTE | 2023-11-19 10:43 | MHC.AM.SUB ---
Intake Vital Signs 11/19/23 10:48 BP 118/78 Blood Pressure Location Lt radial Position Sitting Pulse 82 Pulse Source Pulse Oximeter Pulse Oximetry (%) 96 Oxygen Delivery Method Room Air Intake Visit Reasons: MAT Intake Note: the patient presents for a mat visit Yarn Salvager Required: No Allergies Unable to Assess Allergy (Verified 11/19/23 10:44) Do you need a note to return to daycare/school/sports/work: No HPI MAT HPI Details Recently completed stay at [facility], d/c on 11/16 He reports he was section 35 by his mother He completed 44 days at [facility], was detoxed with librium Reports his LFTs were significantly elevated and normalized during his stay Was started on 100mg vistaril qhs at [facility] and restarted on zoloft 50mg daily & naltrexone 50mg daily He reports he has been feeling fatigued with poor appetite since starting the medications Has an appt with an AA therapist Tuesdays and He is also planning on attending AA He would like to hold off on the vivitrol injection until he is able to tolerate PO naltrexone PFSH Medical History Alcohol abuse Active substance abuse Social History Household Members: None Housing: Condominium Do you presently have visiting nurse or other home services: No Alcohol intake: current Alcohol intake frequency: 3 or more drinks per day Alcohol type: wine Patient Tobacco Use Status: Former Tobacco user Tobacco use type: Smokeless Tobacco service: No Review of Systems Const Reports as per HPI Physical Exam Vital Signs: Last Vital Signs Pulse 82 11/19/23 10:48 BP 118/78 11/19/23 10:48 Pulse Ox 96 11/19/23 10:48 Oxygen Delivery Method Room Air 11/19/23 10:48 Const General: cooperative and no acute distress Resp Effort & Inspection: normal respiratory effort Psych Appearance: grossly normal Mental Status: mental status grossly normal Speech and movement: Normal speech and movement present Affect: normal affect Attitude: cooperative Assessment & Plan Assessment & Plan (1) Alcohol use disorder, severe, dependence: Code(s): F10.20 - Alcohol dependence, uncomplicated Plan: -KHANG to obtain labwork from [facility] -Discussed recovery supports, provided him phone number of [facility] -Discussed with him taking zoloft in the morning, and taking 1/2 tab of naltrexone to assess tolerance -Follow up 1 week Coding Level of Care Code Est Pt Level 3 (50062) Diagnoses Alcohol use disorder, severe, dependence F10.20
[2023-11-19 10:48] VITALS: BP 118/78; PULSE 82; O2SAT 96
== END 2023-11-19 11:25 | disposition home or self-care (01) ==
PROVIDERS: Visit Provider Nurse Practitioner Family
DX: F10.20 Alcohol dependence, uncomplicated (principal)
CPT/HCPCS: 99213

== ENCOUNTER → 2023-11-19 10:43 | Outpatient (BNVA) | payer OTHER, SELFPAY | PROVIDERS: Visit Provider Nurse Practitioner Family | DX: F10.20 Alcohol dependence, uncomplicated (principal); Z79.899 Other long term (current) drug therapy; Z51.81 Encounter for therapeutic drug level monitoring | CPT/HCPCS: 99212 ==

== ENCOUNTER 2023-11-25 18:52 | Emergency (ER) | payer OTHER, SELFPAY ==
[2023-11-25 18:58] VITALS: BP 129/83; PULSE 70; RESP 20; TEMP 36.8; O2SAT 98; BMI 27.3
--- NOTE | 2023-11-25 19:28 | ECG_ITS ---
Test Reason : WITHDRAWAL Blood Pressure : / mmHG Vent. Rate : 082 BPM Atrial Rate : 082 BPM P-R Int : 168 ms QRS Dur : 092 ms QT Int : 380 ms P-R-T Axes : 043 008 010 degrees QTc Int : 443 ms Normal sinus rhythm Normal ECG When compared with ECG of 03-SEP-2023 17:59, No significant changes seen Referred By: Warren Smith Electronically Signed By:Alex Webb
--- NOTE | 2023-11-25 19:31 | ED.GENADULT ---
HPI - General Adult General Chief complaint: Behavioral Concerns Stated complaint: coming from [facility] concern for withdrawl Time Seen by Provider: 11/25/23 18:59 History of Present Illness HPI narrative: The 32-year-old male with a history of an anxiety and alcohol use problems. The patient had been seen at this emergency room 2-1/2 months ago in August for alcohol and cocaine abuse. He was thought to have alcoholic ketoacidosis and was admitted to the hospital. The patient was in the hospital steady days and discharged home. He says that he has been sober since then but yesterday drank alcohol. He says this was the 1st time he had alcohol since his hospitalization. He says that he simply wanted to ?turn my brain off. ?. The patient has been seen as an outpatient in the interim and was started on Zoloft and naltrexone. Today the patient told his mother that he was feeling very anxious. His mother brought him to a [facility] office where he was seen and evaluated. An ambulance was called and he was brought to the hospital here. He feels nauseated. He feels anxious. He denies suicidality and homicidality. Related Data Home Medications Medication Instructions Recorded Confirmed melatonin 5 mg tablet 10 mg PO BEDTIME PRN Insomnia 09/03/23 09/03/23 Previous Rx's Medication Instructions Recorded naltrexone 50 mg tablet 50 mg PO DAILY #30 tabs 09/16/23 prednisone 20 mg tablet 40 mg (2 x 20 mg) PO DAILY #5 tabs 09/16/23 thiamine HCl (vitamin B1) 100 mg 100 mg PO DAILY #30 tabs 09/16/23 tablet hydroxyzine HCl 25 mg tablet 25 mg PO BEDTIME PRN itching #14 09/24/23 tabs naltrexone microspheres 380 mg 380 mg IM Q4W #1 ea 09/24/23 intramuscular suspension,extended release (Vivitrol) folic acid 1 mg tablet 1 mg PO DAILY #30 tabs 10/14/23 Allergies Allergy/AdvReac Type Severity Reaction Status Date / Time No Known Allergies Allergy Verified 11/25/23 18:58 Review of Systems Review of Systems: Yes all other systems are reviewed and are negative [facility] Past Medical History Medical History Alcohol abuse Active substance abuse Social History Social History Household Members: None Housing: Condominium Do you presently have visiting nurse or other home services: No Alcohol intake: current Alcohol intake frequency: 3 or more drinks per day Alcohol type: hard liquor Patient Tobacco Use Status: Former Tobacco user Tobacco use type: Smokeless Tobacco Use of substances other than those prescribed or required for medical reasons: No Advance Directives: No Advance Directives Information Provided: No service: No Physical Exam ED Vital Signs: Vital Signs - 24 hr 11/25/23 18:58 11/25/23 22:04 Temperature 98.3 F 98.6 F Pulse Rate 70 93 Respiratory Rate 20 17 Blood Pressure 129/83 120/82 Pulse Oximetry 98 97 Oxygen Delivery Method Room Air Room Air BMI result Body Mass Index 27.3 Const Other: The patient is a 33-year-old male who looks slightly older than his age. He looks mildly chronically unhealthy but not acutely ill. He had a somewhat anxious affect. HENMT Other: This is symmetrical. Mucous membranes moist. Eyes Other: Pupils are round equal, conjunctivae are clear, no icterus Neck Other: No neck swelling, no JVD Resp Effort & Inspection: normal respiratory effort Auscultation: clear to auscultation bilaterally Cardio Rate: regular rate Rhythm: regular rhythm Heart sounds: S1 normal heart sound present and S2 normal heart sound present GI Other: Abdomen is soft and nontender Skin Other: Skin is pale and dry Neuro Other: The patient is awake and alert. He has an anxious affect. Face is symmetrical. Speech is clear. Eye movements intact. Cranial nerves are intact. Moves his extremities symmetrically. Coordination is normal. Gait is normal. Grossly neurologically intact. Extrem Other: No peripheral edema Psych Other: The patient is awake and alert was cooperative. He expressed anxious thoughts but no suicidality. Medications Administered Generic Name Dose Route Start Last Admin Trade Name Freq PRN Reason Stop Dose Admin Lorazepam 2 mg 11/25/23 22:04 11/25/23 22:10 Lorazepam 1 Mg Tablet PO 2 mg Q4H PRN Administration Alcohol Withdrawal Discontinued Medications Generic Name Dose Route Start Last Admin Trade Name Freq PRN Reason Stop Dose Admin Sodium Chloride 1,000 mls @ 999 mls/hr 11/25/23 19:30 11/25/23 20:52 Ns IV 11/25/23 20:30 Infused .Q1H1M ERICKA Infusion Lorazepam 2 mg 11/25/23 19:28 11/25/23 19:51 Lorazepam 2 Mg/Ml Vial IVPUSH 11/25/23 19:29 2 mg ONCE ONE Administration Medical Decision Making Medical Decision Making [facility] Narrative: The patient is a 33-year-old male with a history of alcohol and substance use disorder. The not used alcohol for several weeks until yesterday. He says he drank a lot yesterday but he has an undetectable ethanol level today. He does not appear in asad withdrawal but seems very anxious. He was given IV fluids and IV lorazepam. His medical testing was unremarkable. ETOH level was negative. Urine drug screen was positive for cocaine. The patient was medically cleared and moved into the Psychiatric pod. A care team consult was placed and he was seen by a clinician. The care team clinician learned that the patient has been at the [facility] on a [address] until quite recently. This is apparently why the patient had successfully abstained from alcohol for the last couple of months. The care team clinician does not feel the patient requires inpatient psychiatric hospitalization. A care team clinician has recommended that the patient be allowed to stay in the emergency room overnight with the plan for discharge in the morning. At discharge the patient will follow up the [facility] to which he has been referred by the care team. The patient will therefore be held in our Psychiatric pod until the morning and discharged this plan. The patient was agreeable to the plan. Lab Data 11/25/23 19:43 11/25/23 19:43 Labs: Lab Results 11/25/23 Range/Units 19:43 WBC 9.9 (4.8-10.8) X10*3/uL RBC 5.16 D (4.60-5.80) X10*6/uL Hgb 15.8 (14.0-18.0) g/dl Hct 44.8 (42.0-52.0) % MCV 86.8 (80.0-98.0) fL MCH 30.6 (27.0-33.0) pg MCHC 35.3 (31.0-36.0) g/dl RDW 11.3 (11.0-16.0) % Plt Count 358 D (160-400) X10*3/uL MPV 8.5 L (9.4-12.4) fL Immature Gran % (Auto) 0.4 (0.0-0.4) % Neut % (Auto) 80.0 H (45-73) % Lymph % (Auto) 12.9 L (20-40) % [place] % (Auto) 5.9 (2-11) % Eos % (Auto) 0.3 (0-4) % Baso % (Auto) 0.5 (0-2) % Lymph # (Auto) 1.3 (1.2-4.9) X10*3/uL [place] # (Auto) 0.6 (0.1-1.2) X10*3/uL Eos # (Auto) 0.0 (0.0-0.4) X10*3/uL Baso # (Auto) 0.1 (0.0-0.2) X10*3/uL Abs Immat Gran (auto) 0.04 H (0.00-0.03) X10*3/uL Absolute Neuts (auto) 7.9 (2.0-8.3) x10*3/uL Absolute Nucleated RBC 0.000 (0.0-0.012) X10*3/uL Nucleated RBC % (auto) 0.0 (0.0-0.2) /100WBC Sodium 140 (135-145) mmol/L Potassium 4.1 (3.3-5.1) mmol/L Chloride 99 (96-108) mmol/L Carbon Dioxide 26 (22-29) mmol/L Anion Gap 19 (12-20) BUN 17 H (9-16) mg/dL Creatinine 0.72 (0.5-1.4) mg/dL Estim Creat Clear Calc 145.9 Estimated GFR > 60 Random Glucose 107 (60-115) mg/dL Calcium 10.1 D (8.4-10.2) mg/dL Magnesium 1.9 (1.6-2.6) mg/dL Total Bilirubin 0.6 (0.0-1.0) mg/dL Direct Bilirubin 0.2 (0.0-0.5) mg/dL AST 50 H (5-37) U/L ALT 54 H (0-40) U/L Alkaline Phosphatase 89 (39-117) U/L Total Protein 8.3 H (6.5-8.0) g/dL Albumin 4.6 (3.5-5.0) g/dL Urine Color Yellow Urine Appearance Clear Urine pH 7.5 (5.0-9.0) Ur Specific [place] >= 1.030 H (1.005-1.025) Urine Protein Trace (Neg-Trace) mg/dL Urine Glucose (UA) Negative (Negative) mg/dL Urine Ketones Trace (Negative) mg/dL Urine Blood Negative (Negative) Urine Nitrite Negative (Negative) Ur Leukocyte Esterase Negative (Negative) Urine Opiates Screen Not Detected (Not Detect) Urine Fentanyl Screen Not Detected (Not Detect) Ur Barbiturates Screen Not Detected (Not Detect) Ur Phencyclidine Scrn Not Detected (Not Detect) Ur Amphetamines Screen Not Detected (Not Detect) U Benzodiazepines Scrn Not Detected (Not Detect) Urine Cocaine Screen POSITIVE H (Not Detect) U Marijuana (THC) Screen Not Detected (Not Detect) Ethyl Alcohol < 10 mg/dL Discharge Plan Discharge Clinical Impression: Anxiety, Depression, Substance use disorder Patient Disposition: Still a Patient Additional Instructions: The Care Team counsellor has referred you to [facility] (the [facility]) for additional support for your mental health and substance use issues. Please follow-up as they recommended. You may conact the [facility] 24 hours a day at [phone]. You may call at any time to speak with someone confidentially about how you are feeling. Please also work on getting a primary care doctor. Return to the emergency room if you are significantly worse. Prescriptions: No Action folic acid 1 mg tablet 1 mg PO DAILY Qty: 30 0RF melatonin 5 mg Tablet 10 mg PO BEDTIME PRN (Reason: Insomnia) naltrexone 50 mg tablet 50 mg PO DAILY Qty: 30 0RF Rx Instructions: Take 1/2 tab for the first 3 days, advance to full tab if well tolerated prednisone 20 mg tablet 40 mg PO DAILY Qty: 5 0RF thiamine HCl (vitamin B1) 100 mg tablet 100 mg PO DAILY Qty: 30 0RF Vivitrol 380 mg suspension,extended rel recon 380 mg IM Q4W Qty: 1 5RF hydroxyzine HCl 25 mg tablet 25 mg PO BEDTIME PRN (Reason: itching) Qty: 14 0RF Referrals: [facility] [Outside] (Anxiety, depression, substance use disorder)
[2023-11-25] MEDS: LORazepam 2 MG/ML VIAL IVPUSH (19:51)
[2023-11-25] MEDS: 0.9 % Sodium Chloride 1,000 ML 999 ML IV (19:51)
[2023-11-25 19:57] LABS: MANUAL DIFF FLAG NO
[2023-11-25 20:00] LABS: Basophils Absolute Auto 0.1 X10*3/uL (0.0-0.2); Basophils Percent Auto 0.5 % (0-2); Eosinophils Percent Auto 0.3 % (0-4); Hematocrit 44.8 % (42.0-52.0); Hemoglobin 15.8 g/dl (14.0-18.0); Imm Gran Abs Auto 0.04 X10*3/uL (0.00-0.03); Imm Gran Pct Auto 0.4 % (0.0-0.4); Lymphocytes Absolute Auto 1.3 X10*3/uL (1.2-4.9); Lymphocytes Percent Auto 12.9 % (20-40); Mean Corpuscular HGB Conc 35.3 g/dl (31.0-36.0); Mean Corpuscular Hemoglobin 30.6 pg (27.0-33.0); Mean Corpuscular Volume 86.8 fL (80.0-98.0); Mean Platelet Volume 8.5 fL (9.4-12.4); Monocytes Absolute Auto 0.6 X10*3/uL (0.1-1.2); Monocytes Percent Auto 5.9 % (2-11); Neutrophils Absolute Auto 7.9 x10*3/uL (2.0-8.3); Platelet Count 358 X10*3/uL (160-400); Red Blood Count 5.16 X10*6/uL (4.60-5.80); Red Cell Distribution Width 11.3 % (11.0-16.0); White Blood Count 9.9 X10*3/uL (4.8-10.8)
[2023-11-25 20:02] LABS: Appearance Urine Clear; Color Urine Yellow; Glucose Urine UA Negative (Negative); Leukocyte Esterase Urine Negative (Negative); Nitrite Urine Negative (Negative); PH 7.5 (5.0-9.0); Specific Gravity - Urine >= 1.030 (1.005-1.025); Urine Blood Negative (Negative); Urine Ketones Trace mg/dL (Negative); Urine Protein Trace mg/dL (Neg-Trace)
[2023-11-25 20:08] LABS: Amphetamine Screen Urine Not Detected (Not Detect); Barbiturates, Urine Not Detected (Not Detect); Benzodiazepines Screen Urine Not Detected (Not Detect); Cannabinoid Screen Urine Not Detected (Not Detect); Cocaine Screen Urine POSITIVE (Not Detect); Fentanyl, urine Not Detected (Not Detect); Opiate Screen Urine Not Detected (Not Detect); Phencyclidine Screen Urine Not Detected (Not Detect)
[2023-11-25 20:16] LABS: Alanine Aminotransferase 54 U/L (0-40); Albumin Level 4.6 g/dL (3.5-5.0); Alkaline Phosphatase 89 U/L (39-117); Anion Gap 19 (12-20); Aspartate Amino Transferase 50 U/L (5-37); Bilirubin Direct 0.2 mg/dL (0.0-0.5); Bilirubin Total 0.6 mg/dL (0.0-1.0); Blood Urea Nitrogen 17 mg/dL (9-16); Calcium 10.1 mg/dL (8.4-10.2); Carbon Dioxide 26 mmol/L (22-29); Chloride 99 mmol/L (96-108); Creatinine Clr Calc Pharmacy 145.9; Estimated Glomerular Filt Rate > 60; Ethanol < 10 mg/dL; Glucose Random 107 mg/dL (60-115); Magnesium 1.9 mg/dL (1.6-2.6); Potassium 4.1 mmol/L (3.3-5.1); Sodium 140 mmol/L (135-145); Total Protein 8.3 g/dL (6.5-8.0)
--- NOTE | 2023-11-25 21:21 | PC.NURSE ---
report given to IGNACIO Arevalo in pod
[2023-11-25 22:04] VITALS: BP 120/82; PULSE 93; RESP 17; TEMP 37; O2SAT 97
[2023-11-25] MEDS: LORazepam 1 MG TABLET 2 MG PO (22:10)
[2023-11-26 06:26] VITALS: BP 109/54; PULSE 52; RESP 16; TEMP 36.2; O2SAT 98
--- NOTE | 2023-11-26 07:51 | PC.NURSE ---
Assumed care of patient at 0700, patient appears to be sleeping, plan of care is for patient to be discharged once he wakes up. Per CARE team Tj, patient should call his mother for ride, if she cannot come pick him up, CARE team can provide a lyft
[2023-11-26 08:55] VITALS: BP 114/79; PULSE 78; RESP 16; TEMP 37.2; O2SAT 99
== END 2023-11-26 08:56 | disposition home or self-care (01) ==
PROVIDERS: Emergency Provider Emergency Medicine
DX: F41.9 Anxiety disorder, unspecified (principal); F32.A Depression, unspecified; F14.10 Cocaine abuse, uncomplicated; F10.10 Alcohol abuse, uncomplicated; Z79.899 Other long term (current) drug therapy
CPT/HCPCS: 36415; 80048; 80076; 80307; 81003; 83735; 85025; 93005; 96361; 96374; 99284; J2060; S9485

== ENCOUNTER → 2023-11-25 19:28 | Outpatient (BNV) | payer OTHER, SELFPAY | PROVIDERS: Emergency Provider Emergency Medicine; Visit Provider Internal Medicine Cardiovascular Disease | DX: R41.82 Altered mental status, unspecified (principal) | CPT/HCPCS: 93010 ==

== ENCOUNTER 2024-01-19 20:05 | Emergency (ER) | payer OTHER, SELFPAY ==
[2024-01-19 20:43] VITALS: BP 128/84; PULSE 95; RESP 163; TEMP 37.7; O2SAT 91; BMI 28.5
== END 2024-01-20 00:35 | disposition left against medical advice (07) ==
PROVIDERS: Emergency Provider Emergency Medicine
DX: R10.9 Unspecified abdominal pain (principal); R51.9 Headache, unspecified; Z53.21 Procedure and treatment not carried out due to patient leaving prior to being seen by health care provider
CPT/HCPCS: 99281

== ENCOUNTER 2024-02-26 17:12 | Inpatient (IN) | payer OTHER, SELFPAY ==
--- NOTE | ~2024-02-26 | XR_ITS ---
EXAMINATION: XR CHEST CLINICAL INFORMATION: Shortness of breath. COMPARISON: None available. TECHNIQUE: Frontal portable view of the chest was obtained. 5:44 PM FINDINGS: No significant abnormality is noted involving the heart, lungs, mediastinum, bony thorax or soft tissues. XR/XR chest 1V IMPRESSION: Unremarkable examination.
[2024-02-26] MEDS: LORazepam 2 MG/ML VIAL IM (17:15)
--- NOTE | 2024-02-26 17:19 | ECG_ITS ---
Test Reason : WITHDRAWALS Blood Pressure : / mmHG Vent. Rate : 162 BPM Atrial Rate : 162 BPM P-R Int : 098 ms QRS Dur : 074 ms QT Int : 308 ms P-R-T Axes : 063 074 051 degrees QTc Int : 505 ms Sinus tachycardia with short FL Otherwise normal ECG When compared with ECG of 25-NOV-2023 20:10, FL interval has decreased Vent. rate has increased BY 80 BPM Questionable change in QRS axis T wave inversion no longer evident in Inferior leads Referred By: Kita Rodriguez Electronically Signed By:YVONNE REIS MD
[2024-02-26 17:25] VITALS: BP 173/152; PULSE 171; RESP 44; TEMP 36.2; O2SAT 97; BMI 25.7
[2024-02-26 17:34] LABS: MANUAL DIFF FLAG NO
[2024-02-26 17:36] LABS: Basophils Absolute Auto 0.1 X10*3/uL (0.0-0.2); Basophils Percent Auto 0.7 % (0-2); Eosinophils Percent Auto 0.3 % (0-4); Hematocrit 49.4 % (42.0-52.0); Hemoglobin 17.6 g/dl (14.0-18.0); Imm Gran Abs Auto 0.03 X10*3/uL (0.00-0.03); Imm Gran Pct Auto 0.3 % (0.0-0.4); Lymphocytes Absolute Auto 2.6 X10*3/uL (1.2-4.9); Mean Corpuscular HGB Conc 35.6 g/dl (31.0-36.0); Mean Corpuscular Hemoglobin 30.8 pg (27.0-33.0); Mean Corpuscular Volume 86.5 fL (80.0-98.0); Mean Platelet Volume 8.7 fL (9.4-12.4); Monocytes Absolute Auto 0.8 X10*3/uL (0.1-1.2); Monocytes Percent Auto 7.9 % (2-11); Neutrophils Absolute Auto 6.8 x10*3/uL (2.0-8.3); Neutrophils Percent Auto 65.8 % (45-73); Platelet Count 278 X10*3/uL (160-400); Red Blood Count 5.71 X10*6/uL (4.60-5.80); Red Cell Distribution Width 13.3 % (11.0-16.0); White Blood Count 10.3 X10*3/uL (4.8-10.8)
[2024-02-26] MEDS: 0.9 % Sodium Chloride 2,000 ML 999 ML IVCONT (17:37)
[2024-02-26] MEDS: PHENobarbitaL sodium 130 MG/ML IM ONCE 339 MG IM (17:48)
[2024-02-26 18:00] LABS: Alanine Aminotransferase 62 U/L (0-40); Albumin Level 4.6 g/dL (3.5-5.0); Alkaline Phosphatase 93 U/L (39-117); Anion Gap 26 (12-20); Aspartate Amino Transferase 84 U/L (5-37); Bilirubin Total 1.4 mg/dL (0.0-1.0); Blood Urea Nitrogen 18 mg/dL (9-16); Calcium 10.8 mg/dL (8.4-10.2); Carbon Dioxide 27 mmol/L (22-29); Chloride 91 mmol/L (96-108); Creatinine Clr Calc Pharmacy 92.9; Estimated Glomerular Filt Rate > 60; Ethanol < 10 mg/dL; Glucose Random 154 mg/dL (60-115); Magnesium 1.7 mg/dL (1.6-2.6); Potassium 4.7 mmol/L (3.3-5.1); Sodium 139 mmol/L (135-145); Total Protein 8.5 g/dL (6.5-8.0)
[2024-02-26 19:00] VITALS: BP 133/78; PULSE 102; RESP 25; O2SAT 95
--- NOTE | 2024-02-26 19:17 | PM.IMHP ---
History of Present Illness Date of Service: 02/26/24 Attending physician on admission: Yessica Delacruz Chief Complaint: Alcohol withdrawal Pt is a 33-year-old male with a PMH significant for alcohol use disorder with hx of alcohol withdrawal and cocaine use disorder who presents to the ED for evaluation of difficulty breathing and feeling as if he is in alcohol withdrawal. Patient states he has been drinking around 500+ mL of 70 proof hard liquor daily for the past 4-5 days. Last drink was approximately 48 hours prior to presentation to the ED. yesterday patient states he had a lot nausea and vomiting but few other symptoms. Today patient felt lightheaded, dizzy, and nauseous, along with experiencing tremors, headache, and difficulty breathing. Also reports seeing ?flares or flashes? in his periphery that rise to the ceiling, and that he felt his hands lock up for a period of time where he could not move them. Patient reports symptoms were so severe, especially with difficulty breathing, that ?things got scary? and decided to come to the emergency room. Patient denies chest pain/pressure, palpitations. In the ED pt was tachycardic up to 171, tachypneic up to 44, and hypertensive up to [id number]. Labs were significant for elevated creatinine of 1.12 (up from 0.72 on 11/24), bilirubin 1.4, AST 84, and ALT 62. Ethyl alcohol levels undetectable. No leukocytosis. Stable H&H. No significant electrolyte abnormalities. CXR was unremarkable without acute cardiopulmonary process. EKG demonstrated sinus tachycardia 162 with short NM and no evidence of significant ST elevations or depressions. Pt was treated with Ativan 2 mg IM, 3 L of IVF, acetaminophen, and started on phenobarb protocol. Pt will be admitted to the hospital for treatment and further evaluation of acute alcohol withdrawal. Review of Systems Review of Systems: Tremors, temporary upper extremity paralysis Nausea, vomiting Headache Shortness of breath, difficulty breathing Lightheadedness, dizziness Visual hallucinations [facility] Medical History Alcohol abuse Active substance abuse Social History Household Members: None Housing: Condominium Do you presently have visiting nurse or other home services: No Alcohol intake: current Alcohol intake frequency: 3 or more drinks per day Alcohol type: hard liquor Patient Tobacco Use Status: Former Tobacco user Tobacco use type: Smokeless Tobacco Smoked in Last 30 Days: No Use of substances other than those prescribed or required for medical reasons: No Advance Directives: No Advance Directives Information Provided: No Do you have a plan to hurt others: No Plan service: No Meds Allergies Allergy/AdvReac Type Severity Reaction Status Date / Time cheese AdvReac Diarrhea Verified 02/26/24 17:27 Active Medications: Current Medications Sodium Chloride (Ns) 2,000 mls @ 999 mls/hr IVCONT .Q2H1M ONE Stop: 02/26/24 19:22 Last Infusion: 02/26/24 19:08 Dose: Infused Pharmacy Consult (Consult Rx Etoh Phenob Im/Po) 1 each MISCELLANE ONCE PRN; Protocol PRN Reason: Consult order Phenobarbital (Phenobarbital 15 Mg Tablet) 45 mg PO BID [facility] Stop: 02/28/24 21:01 Phenobarbital (Phenobarbital 15 Mg Tablet) 15 mg PO BID [facility] Stop: 03/01/24 21:01 Phenobarbital (Phenobarbital 15 Mg Tablet) 15 mg PO DAILY ERICKA Stop: 03/03/24 09:01 Phenobarbital Sodium (Phenobarbital Sodium 130 Mg/Ml Vial Im Q3hx2) 254 mg IM 0000,2100 [facility] Stop: 02/27/24 00:01 Home Medications ?Medication ?Instructions ?Recorded ?Confirmed ?Last Taken ?Type melatonin 5 mg tablet 10 mg PO BEDTIME PRN Insomnia 09/03/23 09/03/23 Unknown History Physical Exam Vital Signs and Narrative: Vital Signs: Last Vital Signs Temp 97.1 F 02/26/24 17:25 Pulse 102 H 02/26/24 19:00 Resp 25 H 02/26/24 19:00 BP 133/78 02/26/24 19:00 Pulse Ox 95 02/26/24 19:00 O2 Del Method Room Air 02/26/24 19:00 BMI result Body Mass Index 25.7 Constitutional: Alert, diaphoretic. In no acute distress. Mental Status: Oriented to person, place and time. Eyes: Pupils are equal, round, and reactive to light. Ear, Nose, and Throat: Oropharynx clear, mucous membranes moist. Ears and nose without deformities. Trachea midline. Respiratory: Clear to auscultation bilaterally. No wheezing, rales, or rhonchi. Cardiovascular: S1, S2, regular rhythm, tachycardic. No murmurs, rubs, or gallops. Gastrointestinal: Abdomen soft, non-tender, non-distended. Normal bowel sounds. Neurologic: Cranial nerves II-XII are grossly intact bilaterally. No focal neurological deficits. Moves all extremities spontaneously. Significant upper extremity resting tremors noted. No tongue fasciculations. Extremities: No edema. Results Labs 02/26/24 17:27 02/26/24 17:27 Labs: Laboratory Results - last 24 hr 02/26/24 17:27 MCV 86.5 MCH 30.8 MCHC 35.6 RDW 13.3 Plt Count 278 MPV 8.7 L Immature Gran % (Auto) 0.3 Neut % (Auto) 65.8 Lymph % (Auto) 25.0 [place] % (Auto) 7.9 Eos % (Auto) 0.3 Baso % (Auto) 0.7 Lymph # (Auto) 2.6 [place] # (Auto) 0.8 Eos # (Auto) 0.0 Baso # (Auto) 0.1 Abs Immat Gran (auto) 0.03 Absolute Neuts (auto) 6.8 Absolute Nucleated RBC 0.000 Nucleated RBC % (auto) 0.0 Anion Gap 26 H Estim Creat Clear Calc 92.9 Estimated GFR > 60 Random Glucose 154 H Calcium 10.8 H D Magnesium 1.7 Total Bilirubin 1.4 H AST 84 H ALT 62 H Alkaline Phosphatase 93 Total Creatine Kinase 85 Total Protein 8.5 H Albumin 4.6 Ethyl Alcohol < 10 Imaging Radiologist's Impressions: Impressions Chest X-Ray 02/26/24 17:30 IMPRESSION: Unremarkable examination. Assessment and Plan (1) Alcohol withdrawal: Status: Acute Plan Pt is a 33-year-old male with a PMH significant for alcohol use disorder with hx of alcohol withdrawal and cocaine use disorder who presents to the ED for evaluation of difficulty breathing and feeling as if he is in alcohol withdrawal. Pt will be admitted to the hospital for treatment and further evaluation of acute alcohol withdrawal. Acute alcohol withdrawal Patient with nausea, vomiting, headache, lightheadedness, dizziness, difficulty breathing, tremors, and visual hallucinations Patient tachycardic, tremulous, and diaphoretic upon examination Last drink 48 hours prior to presentation to the ED Received 3 L IVF, Ativan, and started on phenobarb protocol in the ED Continue phenobarb protocol Daily multivitamin, folic acid, thiamine Famotidine Follow lytes, Mag, BMP CIWA scale Addiction medicine consult Monitor on telemetry Anxiety Continue home mood stabilizers Full Code Attending:?Dr. Barakat DVT Prophylaxis: Lovenox Pt will require a hospitalization of at least two nights for treatment of?acute alcohol withdrawal. Given patient's current symptoms of acute alcohol withdrawal, patient will require hospitalization for the administration of phenobarb protocol and close monitoring of cardiac function and labs. Quality Stroke Does the patient have a stroke diagnosis?: No VTE Prior VTE?: No VTE Risk Level:: Medical - moderate - high VTE Device Contraindication: Treatment Not Indicated VTE Drug Contraindication: N/A - Med Ordered
--- NOTE | 2024-02-26 19:39 | ED_ITS ---
HPI - General Adult General Chief complaint: ETOH/Substance Use Stated complaint: Difficulty breathing Time Seen by Provider: 02/26/24 17:19 Source: patient Mode of arrival: ambulatory Limitations: no limitations History of Present Illness ED Provider: Dr. Zoila Dunbar HPI narrative: Patient comes to the emergency room complaining of alcohol withdrawal. Patient states that he feels really sick, shaky, shortness of breath. Patient admits that he drinks half bottle of 70 prove alcohol every day, last drink was 48 hours ago. Patient denies any injuries, denies using drugs. Related Data Home Medications ?Medication ?Instructions ?Recorded ?Confirmed melatonin 5 mg tablet 10 mg PO BEDTIME PRN Insomnia 09/03/23 09/03/23 Previous Rx's ?Medication ?Instructions ?Recorded naltrexone 50 mg tablet 50 mg PO DAILY #30 tabs 09/16/23 prednisone 20 mg tablet 40 mg (2 x 20 mg) PO DAILY #5 tabs 09/16/23 thiamine HCl (vitamin B1) 100 mg 100 mg PO DAILY #30 tabs 09/16/23 tablet hydroxyzine HCl 25 mg tablet 25 mg PO BEDTIME PRN itching #14 09/24/23 tabs naltrexone microspheres 380 mg 380 mg IM Q4W #1 ea 09/24/23 intramuscular suspension,extended release (Vivitrol) folic acid 1 mg tablet 1 mg PO DAILY #30 tabs 10/14/23 Allergies Allergy/AdvReac Type Severity Reaction Status Date / Time cheese AdvReac Diarrhea Verified 02/26/24 17:27 Review of Systems 2 Review of Systems: Constitutional : No Weight loss, No Fever, No Chills, No Night Sweats, No Fatigue, No Malaise complaining of alcohol withdrawal ENT/Mouth : No Hearing loss, No Ear Pain, No Nasal Congestion, No Sinus Pain, No Hoarseness, No sore throat, No Rhinorrhea, No Swallowing Difficulty Eyes: No Eye Pain, No Swelling, No Redness, No Foreign Body, No Discharge, No Vision Changes Cardiovascular : No Chest Pain, No SOB, No Dyspnea on Exertion, No Orthopnea, No Edema, No Palpitations Respiratory : No Cough, No Sputum, No Wheezing, No Smoke Exposure, No Dyspnea Gastrointestinal : No Nausea, No Vomiting, No Diarrhea, No Constipation, No abdominal Pain, No Hematochezia, No Melena Genitourinary : no irregular bleeding, No Dysuria, No Urinary Frequency, No Hematuria, No Urinary Incontinence, No Urgency, No Flank Pain, No Urinary Flow Changes, No Hesitancy Musculoskeletal : No joint pain, No Myalgias, No Joint Swelling Skin : No Skin Lesions, No rash Neuro : No Weakness, No Numbness, No Paresthesias, No Loss of Consciousness, No Dizziness, No Headache Psych : No Anxiety/Panic, No Depression, No SI/HI/AH/VH, No Social Issues, Heme/Lymph: No Bruising, No Bleeding,No Lymphadenopathy Endocrine : No Polyuria, No Polydipsia, No Temperature Intolerance [facility] Past Medical History Medical History Alcohol abuse Active substance abuse Social History Social History Household Members: None Housing: Condominium Do you presently have visiting nurse or other home services: No Alcohol intake: current Alcohol intake frequency: 3 or more drinks per day Alcohol type: hard liquor Patient Tobacco Use Status: Former Tobacco user Tobacco use type: Smokeless Tobacco service: No Physical Exam ED Vital Signs: Vital Signs - 24 hr 02/26/24 17:25 02/26/24 19:00 Temperature 97.1 F Pulse Rate 171 H 102 H Respiratory Rate 44 H 25 H Blood Pressure 173/152 H 133/78 Pulse Oximetry 97 95 Oxygen Delivery Method Room Air Room Air BMI result Body Mass Index 25.7 Const Other: Appearance: Alert. Oriented X3. Ill-appearing, diaphoretic, anxious Eyes: Pupils equal, round and reactive to light. ENT: Pharynx normal. Neck: Normal inspection. Neck supple. No lymph nodes noted. No crepitus CVS: Tachycardic, heart rate in the 170s Respiratory: No respiratory distress. Breath sounds normal. No Wheezing. No rales Abdomen: Soft and nontender. No rigidity. No distention. Skin: Profusely diaphoretic Extremities: No lower extremity edema. No Lacerations. No Rash Neuro: Significantly tremulous, moving all extremities Psych: Cooperative, anxious Medications Administered Discontinued Medications Generic Name Dose Route Start Last Admin Trade Name Freq PRN Reason Stop Dose Admin Sodium Chloride 2,000 mls @ 999 mls/hr 02/26/24 17:22 02/26/24 19:08 Ns IVCONT 02/26/24 19:22 Infused .Q2H1M ONE Infusion Lorazepam 2 mg 02/26/24 17:16 02/26/24 17:15 Lorazepam 2 Mg/Ml Vial IM 02/26/24 17:17 2 mg ONCE ONE Administration Phenobarbital Sodium 339 mg 02/26/24 18:00 02/26/24 17:48 Phenobarbital Sodium 130 Mg/Ml Im Once IM 02/26/24 18:01 339 mg ONCE@1800 ERICKA Administration Medical Decision Making Medical Decision Making [facility] Narrative: Patient's labs my interpretation: Hematology and chemistry at baseline, ETOH level negative -patient received 2 mg of IV Ativan and started on the phenobarb protocol. -initial blood pressure 173/152, heart rate 171, sinus -my interpretation of EKG, normal sinus rhythm, heart rate 162, no ST segment depression or elevation, no T-wave inversion, QTC 505 -after IV medication treatment, patient's blood pressure 133/78, heart rate 102, patient no longer diaphoretic, overall feeling much better. -discussed with the patient that we recommend to have him admitted, patient agreeable. -I discussed the patient with Dr. Isaacs, patient accepted to the medicine team Differential Diagnosis Differential Diagnoses: The differential diagnosis associated with the presentation includes (Alcohol withdrawal, polysubstance abuse, narcotics withdrawal) Admission/Observation Consideration of admission/observation: Escalation of care including admission/observation considered Consult Healthcare Provider Management of the patient was discussed with: Hospitalist Lab Data [facility] Lab Attestation statement: I reviewed the patient's lab results. 02/26/24 17:27 02/26/24 17:27 Labs: Lab Results 02/26/24 Range/Units 17:27 WBC 10.3 (4.8-10.8) X10*3/uL RBC 5.71 (4.60-5.80) X10*6/uL Hgb 17.6 (14.0-18.0) g/dl Hct 49.4 (42.0-52.0) % MCV 86.5 (80.0-98.0) fL MCH 30.8 (27.0-33.0) pg MCHC 35.6 (31.0-36.0) g/dl RDW 13.3 (11.0-16.0) % Plt Count 278 (160-400) X10*3/uL MPV 8.7 L (9.4-12.4) fL Immature Gran % (Auto) 0.3 (0.0-0.4) % Neut % (Auto) 65.8 (45-73) % Lymph % (Auto) 25.0 (20-40) % [place] % (Auto) 7.9 (2-11) % Eos % (Auto) 0.3 (0-4) % Baso % (Auto) 0.7 (0-2) % Lymph # (Auto) 2.6 (1.2-4.9) X10*3/uL [place] # (Auto) 0.8 (0.1-1.2) X10*3/uL Eos # (Auto) 0.0 (0.0-0.4) X10*3/uL Baso # (Auto) 0.1 (0.0-0.2) X10*3/uL Abs Immat Gran (auto) 0.03 (0.00-0.03) X10*3/uL Absolute Neuts (auto) 6.8 (2.0-8.3) x10*3/uL Absolute Nucleated RBC 0.000 (0.0-0.012) X10*3/uL Nucleated RBC % (auto) 0.0 (0.0-0.2) /100WBC Sodium 139 (135-145) mmol/L Potassium 4.7 (3.3-5.1) mmol/L Chloride 91 L (96-108) mmol/L Carbon Dioxide 27 (22-29) mmol/L Anion Gap 26 H (12-20) BUN 18 H (9-16) mg/dL Creatinine 1.12 (0.5-1.4) mg/dL Estim Creat Clear Calc 92.9 Estimated GFR > 60 Random Glucose 154 H (60-115) mg/dL Calcium 10.8 H D (8.4-10.2) mg/dL Magnesium 1.7 (1.6-2.6) mg/dL Total Bilirubin 1.4 H (0.0-1.0) mg/dL AST 84 H (5-37) U/L ALT 62 H (0-40) U/L Alkaline Phosphatase 93 (39-117) U/L Total Creatine Kinase 85 (38-174) U/L Total Protein 8.5 H (6.5-8.0) g/dL Albumin 4.6 (3.5-5.0) g/dL Ethyl Alcohol < 10 mg/dL Independent Interpretation I performed an independent interpretation of an: EKG Chronic Conditions Patient?s care impacted by: Other (Alcohol dependence) Critical Care Time Critical Care Time Critical Care Time: Yes Total Critical Care Time: 60 Attestation: I have personally provided critical care time. Time includes review of lab data, radiology results, discussion with consultants, and monitoring for potential decompensation. Intervention performed as documented. Discharge Plan Discharge Clinical Impression: Alcohol withdrawal Patient Disposition: Admitted As Inpatient Prescriptions: No Action folic acid 1 mg tablet 1 mg PO DAILY Qty: 30 0RF melatonin 5 mg Tablet 10 mg PO BEDTIME PRN (Reason: Insomnia) naltrexone 50 mg tablet 50 mg PO DAILY Qty: 30 0RF Rx Instructions: Take 1/2 tab for the first 3 days, advance to full tab if well tolerated prednisone 20 mg tablet 40 mg PO DAILY Qty: 5 0RF thiamine HCl (vitamin B1) 100 mg tablet 100 mg PO DAILY Qty: 30 0RF Vivitrol 380 mg suspension,extended rel recon 380 mg IM Q4W Qty: 1 5RF hydroxyzine HCl 25 mg tablet 25 mg PO BEDTIME PRN (Reason: itching) Qty: 14 0RF Print Language: Nepalese
[2024-02-26] MEDS: 0.9 % Sodium Chloride 1,000 ML 999 ML IV (19:45)
[2024-02-26] MEDS: Acetaminophen 325 MG TABLET 975 MG PO (19:46)
[2024-02-26] MEDS: Famotidine 20 MG TABLET PO (22:23)
[2024-02-26] MEDS: Thiamine HCL 100 MG in 0.9 % Sodium Chloride 100 ML 202 MG IV (22:23)
[2024-02-26] MEDS: PHENobarbitaL sodium 130 MG/ML VIAL IM Q3Hx2 254 MG IM (22:23)
[2024-02-27] VITALS (7 sets, daily range): BP systolic 109–134; BP diastolic 71–88; PULSE 67–94; RESP 17–20; TEMP 36.2–37.2; O2SAT 91–100; BMI 27.1
[2024-02-27] MEDS: Enoxaparin Sodium 40 MG/0.4 ML SYRINGE SUBCUT (00:21)
[2024-02-27 01:30] LABS: Appearance Urine Clear; Color Urine Dark Yellow; Glucose Urine UA Negative (Negative); Leukocyte Esterase Urine Trace (Negative); Nitrite Urine Negative (Negative); PH 7.5 (5.0-9.0); Specific Gravity - Urine >= 1.030 (1.005-1.025); UMIC TRIGGER UACC YES; Urine Blood Negative (Negative); Urine Ketones 15 mg/dL (Negative); Urine Protein 30 (1+) mg/dL (Neg-Trace)
[2024-02-27] MEDS: Acetaminophen 325 MG TABLET 650 MG PO (01:30)
[2024-02-27] MEDS: PHENobarbitaL sodium 130 MG/ML VIAL IM Q3Hx2 254 MG IM (01:31)
[2024-02-27] MEDS: 0.9 % Sodium Chloride Flush 3 ML SYRINGE IVFLUSH ×3 (01:31→15:42)
[2024-02-27 01:35] LABS: Bacteria Urine None Seen (None Seen); Hyaline Casts Urine 0-2 /LPF (0-2); RBC Urine 0-2 /HPF (0-2); Squamous Epithelial Cell Urine 0-2 /HPF (0-2); WBC Urine 0-5 /HPF (0-5)
[2024-02-27 01:41] LABS: Amphetamine Screen Urine Not Detected (Not Detect); Barbiturates, Urine POSITIVE (Not Detect); Benzodiazepines Screen Urine Not Detected (Not Detect); Buprenorphine Scr Not Detected (Not Detect); Cannabinoid Screen Urine Not Detected (Not Detect); Cocaine Screen Urine POSITIVE (Not Detect); Fentanyl, urine Not Detected (Not Detect); Methadone Screen, Urine Not Detected (Not Detect); Opiate Screen Urine Not Detected (Not Detect); Oxycodone Screen Urine Not Detected (Not Detect); Phencyclidine Screen Urine Not Detected (Not Detect)
[2024-02-27 07:07] LABS: Anion Gap 10 (12-20); Blood Urea Nitrogen 10 mg/dL (9-16); Calcium 8.1 mg/dL (8.4-10.2); Carbon Dioxide 25 mmol/L (22-29); Chloride 103 mmol/L (96-108); Creatinine Clr Calc Pharmacy 157.7; Estimated Glomerular Filt Rate > 60; Glucose Random 89 mg/dL (60-115); Magnesium 1.8 mg/dL (1.6-2.6); Potassium 3.4 mmol/L (3.3-5.1); Sodium 135 mmol/L (135-145)
--- NOTE | 2024-02-27 08:56 | MHC.CM.PN ---
Pt self-care, lives at home alone. Pt will transport himself home at discharge (car is in lot). Education provided on HCP, pt declined to complete one at this time stating it would be him mother, but she cannot find out about him being here right now. Pt does not have a PCP, local list of PCP's given to pt.
[2024-02-27] MEDS: Multivitamin TABLET 1 TAB PO (09:04)
[2024-02-27] MEDS: Folic Acid 1 MG TABLET PO (09:04)
[2024-02-27] MEDS: PHENobarbitaL 15 MG TABLET 45 MG PO ×2 (09:04→20:10)
[2024-02-27] MEDS: Famotidine 20 MG TABLET PO ×2 (09:04→20:10)
[2024-02-27] MEDS: Thiamine HCL 100 MG in 0.9 % Sodium Chloride 100 ML 202 MG IV (09:06)
--- NOTE | 2024-02-27 09:13 | PHA.MEDREC ---
Pharmacy Consult ? Medication Reconciliation Pharmacy has completed the medication reconciliation.
--- NOTE | 2024-02-27 10:07 | P.PNIM_ITS ---
Subjective Subjective Date of Service: 02/27/24 Interval History: Being followed for alcohol withdrawal. Feeling better denies nausea, no vomiting, no lightheadedness, no dizziness, no epigastric pain Complaining of headache and mild tremors. Review of Systems All other system reviewed and are negative Physical Exam 2 Vital Signs: Vital Signs: Last Vital Signs Temp 97.7 F 02/27/24 07:51 Pulse 67 02/27/24 07:51 Resp 18 02/27/24 07:51 BP 134/77 02/27/24 07:51 Pulse Ox 97 02/27/24 07:51 O2 Del Method Room Air 02/27/24 07:51 BMI result Body Mass Index 27.1 Const: Other: General resting comfortably in no acute distress. Anicteric sclera Neck supple no JVD. CVS regular rate rhythm, Respiratory lungs clear to auscultation, no respiratory distress, no wheeze, no rhonchi. Gastrointestinal abdomen soft, non tender, bowel sounds audible, no guarding , no rigidity. Extremities no edema. Neuro non focal , mild tremors Skin no rash Appropriate affect Objective Data Active Medications Acetaminophen (Acetaminophen 325 Mg Tablet) 650 mg PO Q6H PRN PRN Reason: Pain, Mild (Pain Scale 1-3), fever or headache Last Admin: 02/27/24 01:30 Dose: 650 mg Documented By: VIDHYA Benzonatate (Benzonatate 100 Mg Capsule) 100 mg PO TID PRN PRN Reason: Cough Calcium Carbonate (Calcium Carbonate 750 Mg Tab.Chew) 750 mg PO Q4H PRN PRN Reason: Heartburn Enoxaparin Sodium (Enoxaparin Sodium 40 Mg/0.4 Ml Syringe) 40 mg SUBCUT Q24H [facility] Last Admin: 02/27/24 00:21 Dose: 40 mg Documented By: JAYNE Famotidine (Famotidine 20 Mg Tablet) 20 mg PO BID [facility] Last Admin: 02/27/24 09:04 Dose: 20 mg Documented By: JOSE FRANCISCO Folic Acid (Folic Acid 1 Mg Tablet) 1 mg PO DAILY [facility] Stop: 03/01/24 08:59 Last Admin: 02/27/24 09:04 Dose: 1 mg Documented By: JOSE FRANCISCO Thiamine HCl 100 mg/ Sodium (Chloride) 101 mls @ 202 mls/hr IV BID [facility] Stop: 02/27/24 20:59 Last Admin: 02/27/24 09:06 Dose: 202 mls/hr Documented By: JOSE FRANCISCO Magnesium Hydroxide (Milk Of Magnesia 30 Ml Oral.Susp) 30 ml PO DAILY PRN PRN Reason: Constipation Multivitamins/Vitamin C (Multivitamin Tablet) 1 tab PO DAILY [facility] Stop: 03/01/24 08:59 Last Admin: 02/27/24 09:04 Dose: 1 tab Documented By: JOSE FRANCISCO Ondansetron HCl (Ondansetron Hcl 4 Mg/2 Ml Vial) 4 mg IVPUSH Q8H PRN PRN Reason: Nausea and Vomiting Pharmacy Consult (Consult Rx Etoh Phenob Im/Po) 1 each MISCELLANE ONCE PRN; Protocol PRN Reason: Consult order Phenobarbital (Phenobarbital 15 Mg Tablet) 45 mg PO BID [facility] Stop: 02/28/24 21:01 Last Admin: 02/27/24 09:04 Dose: 45 mg Documented By: JOS EFRANCISCO Phenobarbital (Phenobarbital 15 Mg Tablet) 15 mg PO BID [facility] Stop: 03/01/24 21:01 Phenobarbital (Phenobarbital 15 Mg Tablet) 15 mg PO DAILY [facility] Stop: 03/03/24 09:01 Sodium Chloride (0.9 % Sodium Chloride Flush 3 Ml Syringe) 3 ml IVFLUSH QSHIFT [facility] Last Admin: 02/27/24 09:05 Dose: 3 ml Documented By: JOSE FRANCISCO Labs 02/26/24 17:27 02/27/24 06:30 Labs: Laboratory Results - last 24 hr 02/26/24 02/27/24 02/27/24 17:27 01:04 06:30 MCV 86.5 MCH 30.8 MCHC 35.6 RDW 13.3 Plt Count 278 MPV 8.7 L Immature Gran % (Auto) 0.3 Neut % (Auto) 65.8 Lymph % (Auto) 25.0 [place] % (Auto) 7.9 Eos % (Auto) 0.3 Baso % (Auto) 0.7 Lymph # (Auto) 2.6 [place] # (Auto) 0.8 Eos # (Auto) 0.0 Baso # (Auto) 0.1 Abs Immat Gran (auto) 0.03 Absolute Neuts (auto) 6.8 Absolute Nucleated RBC 0.000 Nucleated RBC % (auto) 0.0 Anion Gap 26 H 10 L Estim Creat Clear Calc 92.9 157.7 Estimated GFR > 60 > 60 Random Glucose 154 H 89 Calcium 10.8 H D 8.1 L D Magnesium 1.7 1.8 Total Bilirubin 1.4 H AST 84 H ALT 62 H Alkaline Phosphatase 93 Total Creatine Kinase 85 Total Protein 8.5 H Albumin 4.6 Urine Color Dark Yellow Urine Appearance Clear Urine pH 7.5 Ur Specific Phyllis >= 1.030 H Urine Protein 30 (1+) H Urine Glucose (UA) Negative Urine Ketones 15 Urine Blood Negative Urine Nitrite Negative Ur Leukocyte Esterase Trace H Urine RBC 0-2 Urine WBC 0-5 Ur Squamous Epith Cells 0-2 Urine Bacteria None Seen Hyaline Casts 0-2 Urine Opiates Screen Not Detected Ur Buprenorphine Scrn Not Detected Ur Oxycodone Screen Not Detected Urine Methadone Screen Not Detected Urine Fentanyl Screen Not Detected Ur Barbiturates Screen POSITIVE H Ur Phencyclidine Scrn Not Detected Ur Amphetamines Screen Not Detected U Benzodiazepines Scrn Not Detected Urine Cocaine Screen POSITIVE H U Marijuana (THC) Screen Not Detected Ethyl Alcohol < 10 Assessment and Plan (1) Alcohol withdrawal: Status: Acute Plan 33-year-old male with a PMH significant for alcohol use disorder with hx of alcohol withdrawal and cocaine use disorder who presents to the ED for evaluation of difficulty breathing and feeling as if he is in alcohol withdrawal. Pt will be admitted to the hospital for treatment and further evaluation of acute alcohol withdrawal. Acute alcohol withdrawal Feeling better, no recurrent episode of nausea, vomiting ,lightheadedness, dizziness, shortness of breath or hallucinations. CIWA 4 with headache, tremors , ETOH less than 10 Continue phenobarb protocol, Daily multivitamin, folic acid, thiamine Famotidine 20 mg b.i.d. Normal electrolytes and magnesium CIWA scale Addiction medicine consult Chronically Elevated LFTs likely due to alcohol, recommend to completely abstain from alcohol, no abdominal pain will hold further workup. Anxiety Continue home mood stabilizers Substance use disorder, as per patient he snorted cocaine few weeks ago, no history of IV drug use Addiction Medicine Full Code DVT Prophylaxis: Lovenox Pt will require continued inpatient hospitalization for treatment of?acute alcohol withdrawal receiving phenobarb per protocol and close monitoring of cardiac function and labs. Quality Stroke Does the patient have a stroke diagnosis?: No VTE Prior VTE?: No VTE Risk Level:: Medical - moderate - high VTE Device Contraindication: Treatment Not Indicated VTE Drug Contraindication: N/A - Med Ordered
[2024-02-27] MEDS: ondansetron HCL 4 MG/2 ML VIAL IVPUSH (19:35)
[2024-02-27] MEDS: hydrOXYzine HCL 25 MG TABLET PO (20:10)
[2024-02-27] MEDS: Sertraline HCL 50 MG TABLET PO (20:10)
[2024-02-28] VITALS: BP 122/89; PULSE 96; RESP 18; TEMP 36.3; O2SAT 96
[2024-02-28] MEDS: 0.9 % Sodium Chloride Flush 3 ML SYRINGE IVFLUSH ×2 (00:19→07:24)
[2024-02-28] MEDS: Acetaminophen 325 MG TABLET 650 MG PO ×2 (00:26→07:21)
[2024-02-28 03:54] VITALS: BP 132/77; PULSE 71; RESP 16; TEMP 36.4; O2SAT 97
[2024-02-28 07:00] LABS: Alanine Aminotransferase 39 U/L (0-40); Albumin Level 3.8 g/dL (3.5-5.0); Alkaline Phosphatase 77 U/L (39-117); Anion Gap 10 (12-20); Aspartate Amino Transferase 61 U/L (5-37); Bilirubin Direct 0.2 mg/dL (0.0-0.5); Bilirubin Total 0.6 mg/dL (0.0-1.0); Blood Urea Nitrogen 7 mg/dL (9-16); Calcium 9.3 mg/dL (8.4-10.2); Carbon Dioxide 27 mmol/L (22-29); Chloride 102 mmol/L (96-108); Creatinine Clr Calc Pharmacy 131.7; Estimated Glomerular Filt Rate > 60; Glucose Random 90 mg/dL (60-115); Sodium 135 mmol/L (135-145); Total Protein 7.1 g/dL (6.5-8.0)
[2024-02-28] MEDS: Famotidine 20 MG TABLET PO ×2 (07:21→20:38)
[2024-02-28] MEDS: Folic Acid 1 MG TABLET PO (07:21)
[2024-02-28] MEDS: Multivitamin TABLET 1 TAB PO (07:21)
[2024-02-28] MEDS: PHENobarbitaL 15 MG TABLET 45 MG PO ×2 (07:21→20:38)
[2024-02-28 07:37] VITALS: BP 122/80; PULSE 85; RESP 18; TEMP 36.5; O2SAT 96
[2024-02-28] MEDS: Thiamine HCL 100 MG TABLET PO (09:40)
--- NOTE | 2024-02-28 10:43 | MHC.CM.PN ---
Per ROUNDS discussion, Patient is not yet medically cleared for dc (one more day of Phenobarbital); home is the goal and CM will continue to follow.
--- NOTE | 2024-02-28 11:20 | P.PNIM_ITS ---
Subjective Subjective Date of Service: 02/28/24 Interval History: feels much better; headache, tremor, and dyspnea resolved Review of Systems Review of Systems: Yes all other systems are reviewed and are negative Physical Exam 2 Vital Signs: Vital Signs: Last Vital Signs Temp 97.7 F 02/28/24 07:37 Pulse 85 02/28/24 07:37 Resp 18 02/28/24 07:37 BP 122/80 02/28/24 07:37 Pulse Ox 96 02/28/24 07:37 O2 Del Method Room Air 02/28/24 07:37 BMI result Body Mass Index 27.1 Gen: in no acute distress HEENT: sclera anicteric, moist mucus membranes Neck: supple Lungs: clear to auscultation bilaterally Heart: regular rate and rhythm, no murmurs Abd: soft, non-tender, non-distended Ext: no edema Skin: warm/well-perfused Neuro: alert and oriented x3, no focal findings Psych: appropriate affect Objective Data Active Medications Acetaminophen (Acetaminophen 325 Mg Tablet) 650 mg PO Q6H PRN PRN Reason: Pain, Mild (Pain Scale 1-3), fever or headache Last Admin: 02/28/24 07:21 Dose: 650 mg Documented By: DAQUAN Benzonatate (Benzonatate 100 Mg Capsule) 100 mg PO TID PRN PRN Reason: Cough Calcium Carbonate (Calcium Carbonate 750 Mg Tab.Chew) 750 mg PO Q4H PRN PRN Reason: Heartburn Enoxaparin Sodium (Enoxaparin Sodium 40 Mg/0.4 Ml Syringe) 40 mg SUBCUT Q24H [facility] Last Admin: 02/27/24 20:11 Dose: Not Given Documented By: JOSE FRANCISCO Non-Admin Reason: Patient Refused Comments: provider aware Famotidine (Famotidine 20 Mg Tablet) 20 mg PO BID [facility] Last Admin: 02/28/24 07:21 Dose: 20 mg Documented By: DAQUAN Folic Acid (Folic Acid 1 Mg Tablet) 1 mg PO DAILY [facility] Stop: 03/01/24 08:59 Last Admin: 02/28/24 07:21 Dose: 1 mg Documented By: DAQUAN Hydroxyzine HCl (Hydroxyzine Hcl 25 Mg Tablet) 25 mg PO BEDTIME PRN PRN Reason: Insomnia Last Admin: 02/27/24 20:10 Dose: 25 mg Documented By: JOSE FRANCISCO Magnesium Hydroxide (Milk Of Magnesia 30 Ml Oral.Susp) 30 ml PO DAILY PRN PRN Reason: Constipation Multivitamins/Vitamin C (Multivitamin Tablet) 1 tab PO DAILY [facility] Stop: 03/01/24 08:59 Last Admin: 02/28/24 07:21 Dose: 1 tab Documented By: DAQUAN Ondansetron HCl (Ondansetron Hcl 4 Mg/2 Ml Vial) 4 mg IVPUSH Q8H PRN PRN Reason: Nausea and Vomiting Last Admin: 02/27/24 19:35 Dose: 4 mg Documented By: JOSE FRANCISCO Pharmacy Consult (Consult Rx Etoh Phenob Im/Po) 1 each MISCELLANE ONCE PRN; Protocol PRN Reason: Consult order Phenobarbital (Phenobarbital 15 Mg Tablet) 45 mg PO BID [facility] Stop: 02/28/24 21:01 Last Admin: 02/28/24 07:21 Dose: 45 mg Documented By: DAQUAN Phenobarbital (Phenobarbital 15 Mg Tablet) 15 mg PO BID [facility] Stop: 03/01/24 21:01 Phenobarbital (Phenobarbital 15 Mg Tablet) 15 mg PO DAILY [facility] Stop: 03/03/24 09:01 Sertraline HCl (Sertraline Hcl 50 Mg Tablet) 50 mg PO BEDTIME [facility] Last Admin: 02/27/24 20:10 Dose: 50 mg Documented By: JOSE FRANCISCO Sodium Chloride (0.9 % Sodium Chloride Flush 3 Ml Syringe) 3 ml IVFLUSH QSHIFT [facility] Last Admin: 02/28/24 07:24 Dose: 3 ml Documented By: DAQUAN Thiamine HCl (Thiamine Hcl 100 Mg Tablet) 100 mg PO DAILY [facility] Last Admin: 02/28/24 09:40 Dose: 100 mg Documented By: DAQUAN Labs 02/26/24 17:27 02/28/24 06:20 Labs: Laboratory Results - last 24 hr 02/28/24 06:20 Anion Gap 10 L Estim Creat Clear Calc 131.7 Estimated GFR > 60 Random Glucose 90 Calcium 9.3 D Total Bilirubin 0.6 Direct Bilirubin 0.2 AST 61 H ALT 39 Alkaline Phosphatase 77 Total Protein 7.1 Albumin 3.8 Assessment and Plan (1) Alcohol withdrawal: Status: Acute Plan d3 33yo M admitted for EtOH withdrawal AUD with withdrawal - continue phenobarbital taper, MVI/folate/thimaine - Addiction Medicine consult pending transaminasemia - improving, was likely due to EtOH inhalation cocaine abuse - screen HBV/HCV/HIV, Addiction Medicine consult anxiety disorder - continue sertraline VTE ppx - LMWH dispo - likely home in next 1-2d In my clinical judgment, the patient requires continued inpatient hospitalization for the following reasons: inpatient phenobarbital taper Total time managing care of this patient today: 35 minutes. Quality Stroke Does the patient have a stroke diagnosis?: No VTE Prior VTE?: No VTE Risk Level:: Medical - moderate - high VTE Device Contraindication: Treatment Not Indicated VTE Drug Contraindication: N/A - Med Ordered
[2024-02-28 16:00] VITALS: BP 125/88; PULSE 100; RESP 20; TEMP 36.3; O2SAT 98
--- NOTE | 2024-02-28 16:38 | HO.ADDICT_ITS ---
History of Present Illness Date of Service: 02/28/2024 Chief Complaint: Acute alcohol withdrawal Reason for Consult: AUD HPI Narrative: Patient is a 33 year old male with AUD medically admitted with acute alcohol withdrawal Known to ACS via previous admission Seen in room 458. Awake, alert, engaged in interview. He reports that prior to admission he had been drinking significantly less than before. Then for about 4 days he began to drink all day until he stopped for 2 days then came in to the hospital He reports feelings of depression, decreased self worth, shame, anxiety. Admissions to treatment at various levels of care, including section 35. He identifies his lack of follow through as an issue He does not appear to be experiencing any withdrawal sx and reports that he feels much better, physically. He reports feeling like he is at a crossroads in regards to what to with regards to his alcohol use. Did not like the way Naltrexone made him feel so he stopped Attended IOP, until he learned his insurance was not going to cover it so he stopped. Review of Systems Constitutional: Reports as per HPI Diagnostics Vital Signs (24Hr): Vital Signs - 24 hr 02/27/24 20:00 02/28/24 00:00 02/28/24 03:54 Temperature 97.3 F 97.3 F 97.5 F Pulse Rate 86 96 71 Respiratory Rate 20 18 16 Blood Pressure 128/88 122/89 132/77 Pulse Oximetry 91 L 96 97 Oxygen Delivery Method Room Air Room Air Room Air 02/28/24 07:37 Temperature 97.7 F Pulse Rate 85 Respiratory Rate 18 Blood Pressure 122/80 Pulse Oximetry 96 Oxygen Delivery Method Room Air BMI result Body Mass Index 27.1 Labs 02/26/24 17:27 02/28/24 06:20 Labs: Laboratory Results - last 48 hr 02/26/24 02/27/24 02/27/24 17:27 01:04 06:30 WBC 10.3 RBC 5.71 Hgb 17.6 Hct 49.4 MCV 86.5 MCH 30.8 MCHC 35.6 RDW 13.3 Plt Count 278 MPV 8.7 L Immature Gran % (Auto) 0.3 Neut % (Auto) 65.8 Lymph % (Auto) 25.0 [place] % (Auto) 7.9 Eos % (Auto) 0.3 Baso % (Auto) 0.7 Lymph # (Auto) 2.6 [place] # (Auto) 0.8 Eos # (Auto) 0.0 Baso # (Auto) 0.1 Abs Immat Gran (auto) 0.03 Absolute Neuts (auto) 6.8 Absolute Nucleated RBC 0.000 Nucleated RBC % (auto) 0.0 Sodium 139 135 Potassium 4.7 3.4 D Chloride 91 L 103 Carbon Dioxide 27 25 Anion Gap 26 H 10 L BUN 18 H 10 Creatinine 1.12 0.66 Estim Creat Clear Calc 92.9 157.7 Estimated GFR > 60 > 60 Random Glucose 154 H 89 Calcium 10.8 H D 8.1 L D Magnesium 1.7 1.8 Total Bilirubin 1.4 H Direct Bilirubin AST 84 H ALT 62 H Alkaline Phosphatase 93 Total Creatine Kinase 85 Total Protein 8.5 H Albumin 4.6 Urine Color Dark Yellow Urine Appearance Clear Urine pH 7.5 Ur Specific [place] >= 1.030 H Urine Protein 30 (1+) H Urine Glucose (UA) Negative Urine Ketones 15 Urine Blood Negative Urine Nitrite Negative Ur Leukocyte Esterase Trace H Urine RBC 0-2 Urine WBC 0-5 Ur Squamous Epith Cells 0-2 Urine Bacteria None Seen Hyaline Casts 0-2 Urine Opiates Screen Not Detected Ur Buprenorphine Scrn Not Detected Ur Oxycodone Screen Not Detected Urine Methadone Screen Not Detected Urine Fentanyl Screen Not Detected Ur Barbiturates Screen POSITIVE H Ur Phencyclidine Scrn Not Detected Ur Amphetamines Screen Not Detected U Benzodiazepines Scrn Not Detected Urine Cocaine Screen POSITIVE H U Marijuana (THC) Screen Not Detected Ethyl Alcohol < 10 02/28/24 06:20 WBC RBC Hgb Hct MCV MCH MCHC RDW Plt Count MPV Immature Gran % (Auto) Neut % (Auto) Lymph % (Auto) [place] % (Auto) Eos % (Auto) Baso % (Auto) Lymph # (Auto) [place] # (Auto) Eos # (Auto) Baso # (Auto) Abs Immat Gran (auto) Absolute Neuts (auto) Absolute Nucleated RBC Nucleated RBC % (auto) Sodium 135 Potassium 4.0 Chloride 102 Carbon Dioxide 27 Anion Gap 10 L BUN 7 L Creatinine 0.79 Estim Creat Clear Calc 131.7 Estimated GFR > 60 Random Glucose 90 Calcium 9.3 D Magnesium Total Bilirubin 0.6 Direct Bilirubin 0.2 AST 61 H ALT 39 Alkaline Phosphatase 77 Total Creatine Kinase Total Protein 7.1 Albumin 3.8 Urine Color Urine Appearance Urine pH Ur Specific [place] Urine Protein Urine Glucose (UA) Urine Ketones Urine Blood Urine Nitrite Ur Leukocyte Esterase Urine RBC Urine WBC Ur Squamous Epith Cells Urine Bacteria Hyaline Casts Urine Opiates Screen Ur Buprenorphine Scrn Ur Oxycodone Screen Urine Methadone Screen Urine Fentanyl Screen Ur Barbiturates Screen Ur Phencyclidine Scrn Ur Amphetamines Screen U Benzodiazepines Scrn Urine Cocaine Screen U Marijuana (THC) Screen Ethyl Alcohol Imaging Radiology Impressions: ITS Impressions Chest X-Ray 02/26/24 17:30 IMPRESSION: Unremarkable examination. Mental Status Exam Mental Status Exam Patient Appearance: Appropriate Level of Consciousness: Awake, Appropriate and Alert Patient Behavior: Appropriate and Cooperative Mood Description: Depressed Affect Description: Depressed Medications Medications Current Medications Acetaminophen (Acetaminophen 325 Mg Tablet) 650 mg PO Q6H PRN PRN Reason: Pain, Mild (Pain Scale 1-3), fever or headache Last Admin: 02/28/24 07:21 Dose: 650 mg Benzonatate (Benzonatate 100 Mg Capsule) 100 mg PO TID PRN PRN Reason: Cough Calcium Carbonate (Calcium Carbonate 750 Mg Tab.Chew) 750 mg PO Q4H PRN PRN Reason: Heartburn Enoxaparin Sodium (Enoxaparin Sodium 40 Mg/0.4 Ml Syringe) 40 mg SUBCUT Q24H [facility] Last Admin: 02/27/24 20:11 Dose: Not Given Famotidine (Famotidine 20 Mg Tablet) 20 mg PO BID [facility] Last Admin: 02/28/24 07:21 Dose: 20 mg Folic Acid (Folic Acid 1 Mg Tablet) 1 mg PO DAILY [facility] Stop: 03/01/24 08:59 Last Admin: 02/28/24 07:21 Dose: 1 mg Hydroxyzine HCl (Hydroxyzine Hcl 25 Mg Tablet) 25 mg PO BEDTIME PRN PRN Reason: Insomnia Last Admin: 02/27/24 20:10 Dose: 25 mg Magnesium Hydroxide (Milk Of Magnesia 30 Ml Oral.Susp) 30 ml PO DAILY PRN PRN Reason: Constipation Multivitamins/Vitamin C (Multivitamin Tablet) 1 tab PO DAILY [facility] Stop: 03/01/24 08:59 Last Admin: 02/28/24 07:21 Dose: 1 tab Ondansetron HCl (Ondansetron Hcl 4 Mg/2 Ml Vial) 4 mg IVPUSH Q8H PRN PRN Reason: Nausea and Vomiting Last Admin: 06/30/24 19:35 Dose: 4 mg Pharmacy Consult (Consult Rx Etoh Phenob Im/Po) 1 each MISCELLANE ONCE PRN; Protocol PRN Reason: Consult order Phenobarbital (Phenobarbital 15 Mg Tablet) 45 mg PO BID [facility] Stop: 02/28/24 21:01 Last Admin: 02/28/24 07:21 Dose: 45 mg Phenobarbital (Phenobarbital 15 Mg Tablet) 15 mg PO BID [facility] Stop: 03/01/24 21:01 Phenobarbital (Phenobarbital 15 Mg Tablet) 15 mg PO DAILY [facility] Stop: 03/03/24 09:01 Sertraline HCl (Sertraline Hcl 50 Mg Tablet) 50 mg PO BEDTIME [facility] Last Admin: 02/27/24 20:10 Dose: 50 mg Sodium Chloride (0.9 % Sodium Chloride Flush 3 Ml Syringe) 3 ml IVFLUSH QSHIFT [facility] Last Admin: 02/28/24 07:24 Dose: 3 ml Thiamine HCl (Thiamine Hcl 100 Mg Tablet) 100 mg PO DAILY [facility] Last Admin: 02/28/24 09:40 Dose: 100 mg Allergies Allergies Allergy/AdvReac Type Severity Reaction Status Date / Time cheese AdvReac Diarrhea Verified 02/26/24 17:27 Assessment & Plan Assessment & Plan (1) Alcohol use disorder, severe, dependence: Status: Acute Code(s): F10.20 - Alcohol dependence, uncomplicated Assessment and Plan: * patient knowledgeable related to resources and supports * 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 PMFSH Past Medical History Medical History Alcohol abuse Active substance abuse Social History Social History Household Members: None Housing: Condominium Do you presently have visiting nurse or other home services: No Alcohol intake: current Alcohol intake frequency: 3 or more drinks per day Alcohol type: hard liquor Patient Tobacco Use Status: Former Tobacco user Tobacco use type: Smokeless Tobacco Smoked in Last 30 Days: No Use of substances other than those prescribed or required for medical reasons: No Currently Displaying Signs/Symptoms of Drug Intoxication Withdrawal: No Any prior treatment program specific to substance use: No Have you been hit, kicked, punched, or otherwise hurt by someone within the past year? If so, by whom?: No Do you feel safe in your current relationship?: No Current Relationship Is there a partner from a previous relationship who is making you feel unsafe now?: No Are you made to feel afraid or neglected: No Advance Directives: No Advance Directives Information Provided: No Do you have a plan to hurt others: No Plan Recently lost weight without trying: No Eating poorly because of decreased appetite: No Nutrition Risks: No Nutritional Risk Poor oral hygiene: No service: No
[2024-02-28 20:00] VITALS: BP 131/81; PULSE 85; RESP 20; TEMP 36.2; O2SAT 96
[2024-02-28] MEDS: Sertraline HCL 50 MG TABLET PO (20:38)
[2024-02-29 00:18] VITALS: BP 142/94; PULSE 87; RESP 20; TEMP 36.1; O2SAT 96
[2024-02-29 04:00] VITALS: BP 122/86; PULSE 75; RESP 20; TEMP 36.4; O2SAT 98
[2024-02-29] MEDS: Acetaminophen 325 MG TABLET 650 MG PO (05:21)
[2024-02-29 07:58] VITALS: BP 128/89; PULSE 84; RESP 18; TEMP 36.7; O2SAT 98
[2024-02-29] MEDS: PHENobarbitaL 15 MG TABLET PO (08:10)
[2024-02-29] MEDS: Multivitamin TABLET 1 TAB PO (08:10)
[2024-02-29] MEDS: Folic Acid 1 MG TABLET PO (08:10)
[2024-02-29] MEDS: Famotidine 20 MG TABLET PO (08:10)
[2024-02-29] MEDS: Thiamine HCL 100 MG TABLET PO (08:10)
[2024-02-29 08:22] LABS: Alanine Aminotransferase 49 U/L (0-40); Albumin Level 4.2 g/dL (3.5-5.0); Alkaline Phosphatase 79 U/L (39-117); Anion Gap 15 (12-20); Aspartate Amino Transferase 62 U/L (5-37); Bilirubin Total 0.5 mg/dL (0.0-1.0); Blood Urea Nitrogen 9 mg/dL (9-16); Calcium 9.8 mg/dL (8.4-10.2); Carbon Dioxide 26 mmol/L (22-29); Chloride 101 mmol/L (96-108); Creatinine Clr Calc Pharmacy 136.9; Estimated Glomerular Filt Rate > 60; Glucose Random 103 mg/dL (60-115); Sodium 138 mmol/L (135-145)
[2024-02-29 08:44] LABS: HBS Num1 104.19 mIU/mL (0-7.99); HBsAGNum1 0.32 S/CO (0.00-0.99); HIV AB/AG Nonreactive (Nonreactive); HIV Num 1 0.07 S/CO (0.00-0.99); Hepatitis B Core Antibody Nonreactive (Nonreactive); Hepatitis B Surface Antigen Negative (Negative); ~HepC Num1 0.22 S/CO (0.00-0.79); ~Hepatitis B Surface Antibody REACTIVE (Nonreactive); ~Hepatitis C Antibody Nonreactive (Nonreactive)
--- NOTE | 2024-02-29 10:35 | P.DS_ITS ---
DS: Providers Provider Date of Service: 02/29/24 Date of admission: 02/26/24 20:28 Date of discharge: 02/29/24 Primary care physician: None Physician Consults: 02/26/24 20:26 Addiction Medicine Routine Consulting Provider: Addiction Covering Reason for consultation: Alcohol withdrawal DS: Diagnosis Discharge Diagnosis (1) Alcohol use disorder, severe, dependence: Status: Acute (2) Alcohol withdrawal: Status: Acute DS: Summary Hospital Course Hospital Course: From the history and physical by the admitting hospitalist, JANEE Reardon, 02/26/24: Pt is a 33-year-old male with a PMH significant for alcohol use disorder with hx of alcohol withdrawal and cocaine use disorder who presents to the ED for evaluation of difficulty breathing and feeling as if he is in alcohol withdrawal. Patient states he has been drinking around 500+ mL of 70 proof hard liquor daily for the past 4-5 days. Last drink was approximately 48 hours prior to presentation to the ED. yesterday patient states he had a lot nausea and vomiting but few other symptoms. Today patient felt lightheaded, dizzy, and nauseous, along with experiencing tremors, headache, and difficulty breathing. Also reports seeing ?flares or flashes? in his periphery that rise to the ceiling, and that he felt his hands lock up for a period of time where he could not move them. Patient reports symptoms were so severe, especially with difficulty breathing, that ?things got scary? and decided to come to the emergency room. Patient denies chest pain/pressure, palpitations. In the ED pt was tachycardic up to 171, tachypneic up to 44, and hypertensive up to [id number]. Labs were significant for elevated creatinine of 1.12 (up from 0.72 on 11/24), bilirubin 1.4, AST 84, and ALT 62. Ethyl alcohol levels undetectable. No leukocytosis. Stable H&H. No significant electrolyte abnormalities. CXR was unremarkable without acute cardiopulmonary process. EKG demonstrated sinus tachycardia 162 with short [place] and no evidence of significant ST elevations or depressions. Pt was treated with Ativan 2 mg IM, 3 L of IVF, acetaminophen, and started on phenobarb protocol. Pt will be admitted to the hospital for treatment and further evaluation of acute alcohol withdrawal. 33yo M admitted for EtOH withdrawal and treated with phenobarbital taper. Withdrawal syndrome resolved. Creatinine normalized with IV fluid hydration. He met with the Addiction Medicine team and recovery support was provided. He was discharged and advised to follow up with [facility] and to establish primary care. Time Attestation Discharge Coordination Time (in mins): 35 Quality: Safe Use of Opioids Does Pt have an Active Cancer Diagnosis on the Problem List?: No Quality: Stroke Does the patient have a stroke diagnosis?: No Physical Exam Vital Signs: Vital Signs: Last Vital Signs Temp 98.1 F 02/29/24 07:58 Pulse 84 02/29/24 07:58 Resp 18 02/29/24 07:58 BP 128/89 02/29/24 07:58 Pulse Ox 98 02/29/24 07:58 O2 Del Method Room Air 02/29/24 07:58 BMI result Body Mass Index 27.1 Gen: in no acute distress HEENT: sclera anicteric, moist mucus membranes Neck: supple Lungs: clear to auscultation bilaterally Heart: regular rate and rhythm, no murmurs Abd: soft, non-tender, non-distended Ext: no edema Skin: warm/well-perfused Neuro: alert and oriented x3, no focal findings Psych: appropriate affect DS: Data Data Completed and Pending Completed studies during hospitalization [Text1]: Laboratory Results WBC 10.3 X10*3/uL (4.8-10.8) 02/26/24 17: RBC 5.71 X10*6/uL (4.60-5.80) 02/26/24 17:27 Hgb 17.6 g/dl (14.0-18.0) 02/26/24 17:27 Hct 49.4 % (42.0-52.0) 02/26/24 17:27 MCV 86.5 fL (80.0-98.0) 02/26/24 17:27 MCH 30.8 pg (27.0-33.0) 02/26/24 17: MCHC 35.6 g/dl (31.0-36.0) 02/26/24 17: RDW 13.3 % (11.0-16.0) 02/26/24 17:27 Plt Count 278 X10*3/uL (160-400) 02/26/24 17: MPV 8.7 fL (9.4-12.4) L 02/26/24 17:27 Immature Gran % (Auto) 0.3 % (0.0-0.4) 02/26/24 17: Neut % (Auto) 65.8 % (45-73) 02/26/24 17: Lymph % (Auto) 25.0 % (20-40) 02/26/24 17: [place] % (Auto) 7.9 % (2-11) 02/26/24 17: Eos % (Auto) 0.3 % (0-4) 02/26/24 17:27 Baso % (Auto) 0.7 % (0-2) 02/26/24 17: Lymph # (Auto) 2.6 X10*3/uL (1.2-4.9) 02/26/24 17: [place] # (Auto) 0.8 X10*3/uL (0.1-1.2) 02/26/24 17: Eos # (Auto) 0.0 X10*3/uL (0.0-0.4) 02/26/24 17: Baso # (Auto) 0.1 X10*3/uL (0.0-0.2) 02/26/24 17: Abs Immat Gran (auto) 0.03 X10*3/uL (0.00-0.03) 02/26/24 17: Absolute Neuts (auto) 6.8 x10*3/uL (2.0-8.3) 02/26/24 17: Absolute Nucleated RBC 0.000 X10*3/uL (0.0-0.012) 02/26/24 17: Nucleated RBC % (auto) 0.0 /100WBC (0.0-0.2) 02/26/24 17: Sodium 138 mmol/L (135-145) 02/29/24 07:32 Potassium 4.0 mmol/L (3.3-5.1) 02/29/24 07:32 Chloride 101 mmol/L (96-108) 02/29/24 07:32 Carbon Dioxide 26 mmol/L (22-29) 02/29/24 07:32 Anion Gap 15 (12-20) 02/29/24 07:32 BUN 9 mg/dL (9-16) 02/29/24 07:32 Creatinine 0.76 mg/dL (0.5-1.4) 02/29/24 07:32 Estim Creat Clear Calc 136.9 02/29/24 07:32 Estimated GFR > 60 02/29/24 07:32 Random Glucose 103 mg/dL (60-115) 02/29/24 07:32 Calcium 9.8 mg/dL (8.4-10.2) 02/29/24 07:32 Magnesium 2.0 mg/dL (1.6-2.6) 02/29/24 07:32 Total Bilirubin 0.5 mg/dL (0.0-1.0) 02/29/24 07:32 Direct Bilirubin 0.2 mg/dL (0.0-0.5) 02/28/24 06:20 AST 62 U/L (5-37) H 02/29/24 07:32 ALT 49 U/L (0-40) H 02/29/24 07:32 Alkaline Phosphatase 79 U/L (39-117) 02/29/24 07:32 Total Creatine Kinase 85 U/L (38-174) 02/26/24 17:27 Total Protein 8.0 g/dL (6.5-8.0) 02/29/24 07:32 Albumin 4.2 g/dL (3.5-5.0) 02/29/24 07:32 Urine Color Dark Yellow 02/27/24 01:04 Urine Appearance Clear 02/27/24 01:04 Urine pH 7.5 (5.0-9.0) 02/27/24 01:04 Ur Specific [place] >= 1.030 (1.005-1.025) H 02/27/24 01:04 Urine Protein 30 (1+) mg/dL (Neg-Trace) H 02/27/24 01:04 Urine Glucose (UA) Negative mg/dL (Negative) 02/27/24 01:04 Urine Ketones 15 mg/dL (Negative) 02/27/24 01:04 Urine Blood Negative (Negative) 02/27/24 01:04 Urine Nitrite Negative (Negative) 02/27/24 01:04 Ur Leukocyte Esterase Trace (Negative) H 02/27/24 01:04 Urine RBC 0-2 /HPF (0-2) 02/27/24 01:04 Urine WBC 0-5 /HPF (0-5) 02/27/24 01:04 Ur Squamous Epith Cells 0-2 /HPF (0-2) 02/27/24 01:04 Urine Bacteria None Seen (None Seen) 02/27/24 01:04 Hyaline Casts 0-2 /LPF (0-2) 02/27/24 01:04 Urine Opiates Screen Not Detected (Not Detect) 02/27/24 01:04 Ur Buprenorphine Scrn Not Detected ng/mL (Not Detect) 02/27/24 01:04 Ur Oxycodone Screen Not Detected ng/mL (Not Detect) 02/27/24 01:04 Urine Methadone Screen Not Detected ng/mL (Not Detect) 02/27/24 01:04 Urine Fentanyl Screen Not Detected (Not Detect) 02/27/24 01:04 Ur Barbiturates Screen POSITIVE (Not Detect) H 02/27/24 01:04 Ur Phencyclidine Scrn Not Detected (Not Detect) 02/27/24 01:04 Ur Amphetamines Screen Not Detected (Not Detect) 02/27/24 01:04 U Benzodiazepines Scrn Not Detected (Not Detect) 02/27/24 01:04 Urine Cocaine Screen POSITIVE (Not Detect) H 02/27/24 01:04 U Marijuana (THC) Screen Not Detected (Not Detect) 02/27/24 01:04 Ethyl Alcohol < 10 mg/dL 02/26/24 17:27 Hep Bs Antigen Negative (Negative) 02/29/24 07:32 Hep Bs Antibody REACTIVE (Nonreactive) 02/29/24 07:32 Hep B Core Total Ab Nonreactive (Nonreactive) 02/29/24 07:32 Hepatitis C Ab (EIA) Nonreactive (Nonreactive) 02/29/24 07:32 HIV 1&2 Ab/P24 Ag 4thGn Nonreactive (Nonreactive) 02/29/24 07:32 Impressions Chest X-Ray 02/26/24 17:30 IMPRESSION: Unremarkable examination. Discharge Plan Discharge Anticipated Discharge Date/Time: 02/29/24 10:33 Patient Disposition: Home, Self-Care Discharge Diagnosis: alcohol use disorder, alcohol withdrawal Referrals: Physician,None [Primary Care Provider] - 1 Week Dary Gallo CNP [Nurse Practitioner] - 1 Week Discharge Medications: Continued folic acid 1 mg tablet 1 mg PO DAILY Qty: 30 0RF hydroxyzine pamoate 100 mg capsule 200 mg PO BEDTIME PRN (Reason: Insomnia) sertraline 50 mg tablet 50 mg PO BEDTIME thiamine HCl (vitamin B1) 100 mg tablet 100 mg PO DAILY Qty: 30 0RF Discharge Orders: Discharge Order (Routine); Ordered 02/29/24 Ordered By: Shira Barrera Diet: Advance to usual diet Activity on Discharge: As tolerated Stand Alone Forms: Patient Portal Discharge page, Work/School Release Print Language: [place] Care Plan Goals: sobriety Health Concerns: alcohol use disorder, alcohol withdrawal Plan of Treatment: avoid alcohol follow up with [facility], [address] [place] [address] [phone], find a primary care doctor as soon as possible Assessment: See Discharge Summary.
--- NOTE | 2024-02-29 10:46 | MHC.CM.PN ---
Pt is medically cleared for discharge self-care, pt will transport himself home.
--- NOTE | 2024-02-29 11:10 | MHC.RECOVRN ---
Met with pt to follow up and provide support. Pt sitting in bed, awake, alert, engages in conversation, preparing to dc today. Pt reports he feels okay and that he slept poorly last night. Pt reports shame for recurrence and not reaching out to supportive people prior to drinking. Pt reports he is in transition and will be starting a new job in the next couple of days. Pt is interested in returning to the [facility], does not want to make appointment right now. Encouraged pt to call to make appt or present as a walk in. Provided pt with resources, including [facility] information, as well as t/w contact information if needed. Pt denies questions or concerns for t/w.
== END 2024-02-29 11:09 | disposition home or self-care (01) | DRG 774 ==
LOC: HO.ED 19:44 → HO.EDOVER 20:42 → HO.IMC 23:56
PROVIDERS: Physician Assistant Medical; Admitting Provider Student in an Organized Health Care Education/Training Program; Emergency Provider Emergency Medicine; Visit Provider Family Medicine
DX: F10.239 Alcohol dependence with withdrawal, unspecified (principal); F14.10 Cocaine abuse, uncomplicated; F41.9 Anxiety disorder, unspecified; Z87.891 Personal history of nicotine dependence; Z79.899 Other long term (current) drug therapy
CPT/HCPCS: 36415; 71045; 80048; 80053; 80076; 80307; 81001; 82550; 83735; 85025; 86704; 86706; 86803; 87340; 87389; 93005; 99285; J1650; J2060; J2405; J2560; J3411

== ENCOUNTER → 2024-02-26 17:19 | Outpatient (BNV) | payer OTHER, SELFPAY | PROVIDERS: Admitting Provider Student in an Organized Health Care Education/Training Program; Emergency Provider Emergency Medicine; Visit Provider Internal Medicine Cardiovascular Disease | DX: I45.6 Pre-excitation syndrome (principal) | CPT/HCPCS: 93010 ==

== ENCOUNTER → 2024-02-26 20:28 | Outpatient (BNV) | payer OTHER, SELFPAY | PROVIDERS: Admitting Provider Student in an Organized Health Care Education/Training Program; Emergency Provider Emergency Medicine; Visit Provider Nurse Practitioner Psychiatric/Mental Health | DX: F10.20 Alcohol dependence, uncomplicated (principal) | CPT/HCPCS: 99232 ==

== ENCOUNTER → 2024-02-26 20:28 | Outpatient (BNV) | payer OTHER, SELFPAY | PROVIDERS: Admitting Provider Student in an Organized Health Care Education/Training Program; Emergency Provider Emergency Medicine; Visit Provider Hospitalist | DX: F10.939 Alcohol use, unspecified with withdrawal, unspecified (principal) | CPT/HCPCS: 99223; 99232; 99233; 99239 ==

== ENCOUNTER 2024-03-20 17:57 | Inpatient (IN) | payer OTHER, SELFPAY ==
--- NOTE | 2024-03-20 | ECG_ITS ---
Test Reason : TACHYCARDIA Blood Pressure : / mmHG Vent. Rate : 101 BPM Atrial Rate : 101 BPM P-R Int : 186 ms QRS Dur : 078 ms QT Int : 348 ms P-R-T Axes : 056 035 006 degrees QTc Int : 451 ms Artifact in tracing Sinus tachycardia Nonspecific ST and T wave abnormality Borderline ECG When compared with ECG of 26-FEB-2024 17:20, Vent. rate has decreased BY 61 BPM T wave inversion now evident in Inferior leads Referred By: Yessica Delacruz Electronically Signed By:CRISTY KUO
[2024-03-20 18:10] VITALS: BP 153/83; PULSE 125; RESP 26; TEMP 36.4; O2SAT 99; BMI 25.1
--- NOTE | 2024-03-20 18:12 | ED.GENADULT ---
HPI - General Adult General Chief complaint: ETOH/Substance Use Stated complaint: difficulty breathing Time Seen by Provider: 03/20/24 18:22 Source: patient Mode of arrival: ambulatory Limitations: no limitations History of Present Illness ED Provider: candida Related Data Home Medications ?Medication ?Instructions ?Recorded ?Confirmed hydroxyzine pamoate 100 mg capsule 200 mg PO BEDTIME PRN Insomnia 02/27/24 02/27/24 sertraline 50 mg tablet 50 mg PO BEDTIME 02/27/24 02/27/24 Previous Rx's ?Medication ?Instructions ?Recorded thiamine HCl (vitamin B1) 100 mg 100 mg PO DAILY #30 tabs 09/16/23 tablet folic acid 1 mg tablet 1 mg PO DAILY #30 tabs 10/14/23 Allergies Allergy/AdvReac Type Severity Reaction Status Date / Time cheese AdvReac Diarrhea Verified 03/20/24 18:16 [facility] Past Medical History Medical History Alcohol abuse Active substance abuse Social History Social History Household Members: None Housing: Condominium Do you presently have visiting nurse or other home services: No Alcohol intake: current Alcohol intake frequency: 3 or more drinks per day Alcohol type: hard liquor Patient Tobacco Use Status: Former Tobacco user Tobacco use type: Smokeless Tobacco Advance Directives: No Advance Directives Information Provided: No Do you have a plan to hurt others: No Plan service: No Physical Exam ED Vital Signs: Vital Signs - 24 hr 03/20/24 18:10 Temperature 97.5 F Pulse Rate 125 H Respiratory Rate 26 H Blood Pressure 153/83 H Pulse Oximetry 99 Oxygen Delivery Method Room Air BMI result Body Mass Index 25.1 Course Course Course Narrative: This is an RME: Additional HPI, ROS, PE not included below will be deferred to primary provider. RME assessment and note performed by: Leslie Nava PA-C Pt is a 33-year-old male with a PMH significant for alcohol use disorder with hx of alcohol withdrawal and cocaine use disorder who presents to the ED for evaluation of difficulty breathing and feeling as if he is in alcohol withdrawal. Medications Administered Discontinued Medications Generic Name Dose Route Start Last Admin Trade Name Freq PRN Reason Stop Dose Admin Sodium Chloride 1,000 mls @ 999 mls/hr 03/20/24 18:21 03/20/24 18:50 Ns IV 03/20/24 19:21 999 mls/hr .Q1H1M ONE Administration Lorazepam 2 mg 03/20/24 18:26 03/20/24 18:50 Lorazepam 2 Mg/Ml Vial IVPUSH 03/20/24 18:27 2 mg ONCE ONE Administration Medical Decision Making Lab Data 03/20/24 18:36 03/20/24 18:36 Labs: Lab Results 03/20/24 Range/Units 18:36 WBC 5.5 (4.8-10.8) X10*3/uL RBC 5.05 (4.60-5.80) X10*6/uL Hgb 15.6 (14.0-18.0) g/dl Hct 45.1 (42.0-52.0) % MCV 89.3 (80.0-98.0) fL MCH 30.9 (27.0-33.0) pg MCHC 34.6 (31.0-36.0) g/dl RDW 14.6 (11.0-16.0) % Plt Count 311 (160-400) X10*3/uL MPV 8.6 L (9.4-12.4) fL Immature Gran % (Auto) 0.2 (0.0-0.4) % Neut % (Auto) 39.5 L (45-73) % Lymph % (Auto) 52.3 H (20-40) % [place] % (Auto) 6.4 (2-11) % Eos % (Auto) 0.9 (0-4) % Baso % (Auto) 0.7 (0-2) % Lymph # (Auto) 2.9 (1.2-4.9) X10*3/uL [place] # (Auto) 0.4 (0.1-1.2) X10*3/uL Eos # (Auto) 0.1 (0.0-0.4) X10*3/uL Baso # (Auto) 0.0 (0.0-0.2) X10*3/uL Abs Immat Gran (auto) 0.01 (0.00-0.03) X10*3/uL Absolute Neuts (auto) 2.2 (2.0-8.3) x10*3/uL Absolute Nucleated RBC 0.000 (0.0-0.012) X10*3/uL Nucleated RBC % (auto) 0.0 (0.0-0.2) /100WBC Sodium 145 (135-145) mmol/L Potassium 4.0 (3.3-5.1) mmol/L Chloride 101 (96-108) mmol/L Carbon Dioxide 26 (22-29) mmol/L Anion Gap 22 H (12-20) BUN 10 (9-16) mg/dL Creatinine 0.85 (0.5-1.4) mg/dL Estim Creat Clear Calc 118.4 Estimated GFR > 60 Random Glucose 98 (60-115) mg/dL Calcium 9.3 (8.4-10.2) mg/dL Magnesium 2.0 (1.6-2.6) mg/dL Total Bilirubin 0.2 (0.0-1.0) mg/dL Direct Bilirubin < 0.2 (0.0-0.5) mg/dL AST 77 H (5-37) U/L ALT 64 H (0-40) U/L Alkaline Phosphatase 96 (39-117) U/L Total Protein 8.2 H (6.5-8.0) g/dL Albumin 4.5 (3.5-5.0) g/dL Lipase 38 (8-78) U/L Ethyl Alcohol 396 H* mg/dL Discharge Plan Discharge Prescriptions: No Action folic acid 1 mg tablet 1 mg PO DAILY Qty: 30 0RF hydroxyzine pamoate 100 mg capsule 200 mg PO BEDTIME PRN (Reason: Insomnia) sertraline 50 mg tablet 50 mg PO BEDTIME thiamine HCl (vitamin B1) 100 mg tablet 100 mg PO DAILY Qty: 30 0RF Print Language: [place]
--- NOTE | 2024-03-20 18:23 | ED.ALCOHOL ---
HPI - Alcohol General Chief Complaint: ETOH/Substance Use Stated Complaint: difficulty breathing Time Seen by Provider: 03/20/24 18:22 Source: patient Mode of arrival: ambulatory Limitations: no limitations History of Present Illness ED Provider: candida MOSES narrative: Patient is 73 years old alcoholic with history of depression drinks imer had withdrawal seizures in the past today he went for the job interview did not have his papers came home had few drinks mother brought him here as patient was crying and intoxicated patient admits depression were on sertraline and Vistaril in the past. Denies any SI or HI Related Data Home Medications ?Medication ?Instructions ?Recorded ?Confirmed hydroxyzine pamoate 100 mg capsule 200 mg PO BEDTIME PRN Insomnia 02/27/24 02/27/24 sertraline 50 mg tablet 50 mg PO BEDTIME 02/27/24 02/27/24 Previous Rx's ?Medication ?Instructions ?Recorded thiamine HCl (vitamin B1) 100 mg 100 mg PO DAILY #30 tabs 09/16/23 tablet folic acid 1 mg tablet 1 mg PO DAILY #30 tabs 10/14/23 Allergies Allergy/AdvReac Type Severity Reaction Status Date / Time cheese AdvReac Diarrhea Verified 03/20/24 18:16 Review of Systems Review of Systems: Yes all other systems are reviewed and are negative PMFSH Past Medical History Medical History (Updated 03/21/24 @ 00:14 by Evan Ramachandran MD) Anxiety Alcohol abuse Active substance abuse Social History Social History Household Members: None Housing: Condominium Do you presently have visiting nurse or other home services: No Alcohol intake: current Alcohol intake frequency: 3 or more drinks per day Alcohol type: hard liquor Patient Tobacco Use Status: Former Tobacco user Tobacco use type: Smokeless Tobacco Smoked in Last 30 Days: No Advance Directives: No Advance Directives Information Provided: No Do you have a plan to hurt others: No Plan Nutrition Risks: No Nutritional Risk service: No Physical Exam ED Vital Signs: Vital Signs - 24 hr 03/20/24 18:10 Temperature 97.5 F Pulse Rate 125 H Respiratory Rate 26 H Blood Pressure 153/83 H Pulse Oximetry 99 Oxygen Delivery Method Room Air BMI result Body Mass Index 25.1 Appearance: Alert. Oriented X3. No acute distress. etoh++ Eyes: PERRLA, No Nystagmus ENT: Pharynx normal. Oral Mucosa Dry Neck: Normal inspection. Neck supple. CVS: Tachycardic. Pulses normal. Respiratory: No respiratory distress. Equal air entry bilateral, no wheezing/rales/rhonchi Abdomen: Soft and nontender. Bowel sounds are present, no mass palpable, no CVA tenderness Skin: Skin warm and dry. Normal skin color. Normal skin turgor. Extremities: No lower extremity edema. No calf tenderness Neuro: Oriented X 3. No motor deficit. Tremulous Medical Decision Making Medical Decision Making [facility] Narrative: Patient with hx of alcohol abuse intoxicated tachycardic feels in withdrawal all the patient's says that he had last drink 2 days ago mother noticed nebs and vodka in his room earlier today patient with tachycardic shaky time of arrival admit patient for alcohol withdrawal ??although alcohol level was 396 Differential Diagnosis Differential Diagnoses: The differential diagnosis associated with the presentation includes Admission/Observation Consideration of admission/observation: Escalation of care including admission/observation considered Consult Healthcare Provider Management of the patient was discussed with: Hospitalist Lab Data [facility] Lab Attestation statement: I reviewed the patient's lab results. 03/20/24 18:36 03/20/24 18:36 Labs: Lab Results 03/20/24 Range/Units 18:36 WBC 5.5 (4.8-10.8) X10*3/uL RBC 5.05 (4.60-5.80) X10*6/uL Hgb 15.6 (14.0-18.0) g/dl Hct 45.1 (42.0-52.0) % MCV 89.3 (80.0-98.0) fL MCH 30.9 (27.0-33.0) pg MCHC 34.6 (31.0-36.0) g/dl RDW 14.6 (11.0-16.0) % Plt Count 311 (160-400) X10*3/uL MPV 8.6 L (9.4-12.4) fL Immature Gran % (Auto) 0.2 (0.0-0.4) % Neut % (Auto) 39.5 L (45-73) % Lymph % (Auto) 52.3 H (20-40) % [place] % (Auto) 6.4 (2-11) % Eos % (Auto) 0.9 (0-4) % Baso % (Auto) 0.7 (0-2) % Lymph # (Auto) 2.9 (1.2-4.9) X10*3/uL [place] # (Auto) 0.4 (0.1-1.2) X10*3/uL Eos # (Auto) 0.1 (0.0-0.4) X10*3/uL Baso # (Auto) 0.0 (0.0-0.2) X10*3/uL Abs Immat Gran (auto) 0.01 (0.00-0.03) X10*3/uL Absolute Neuts (auto) 2.2 (2.0-8.3) x10*3/uL Absolute Nucleated RBC 0.000 (0.0-0.012) X10*3/uL Nucleated RBC % (auto) 0.0 (0.0-0.2) /100WBC Sodium 145 (135-145) mmol/L Potassium 4.0 (3.3-5.1) mmol/L Chloride 101 (96-108) mmol/L Carbon Dioxide 26 (22-29) mmol/L Anion Gap 22 H (12-20) BUN 10 (9-16) mg/dL Creatinine 0.85 (0.5-1.4) mg/dL Estim Creat Clear Calc 118.4 Estimated GFR > 60 Random Glucose 98 (60-115) mg/dL Calcium 9.3 (8.4-10.2) mg/dL Magnesium 2.0 (1.6-2.6) mg/dL Total Bilirubin 0.2 (0.0-1.0) mg/dL Direct Bilirubin < 0.2 (0.0-0.5) mg/dL AST 77 H (5-37) U/L ALT 64 H (0-40) U/L Alkaline Phosphatase 96 (39-117) U/L Total Protein 8.2 H (6.5-8.0) g/dL Albumin 4.5 (3.5-5.0) g/dL Lipase 38 (8-78) U/L Ethyl Alcohol 396 H* mg/dL Independent Interpretation I performed an independent interpretation of an: EKG Interpretation: Sinus tachycardia heart rate of 101 beats per minute nonspecific ST T wave changes normal axis no acute ischemia Medications Administered Generic Name Dose Route Start Last Admin Trade Name Freq PRN Reason Stop Dose Admin Thiamine HCl 100 mg/ Sodium 101 mls @ 202 mls/hr 03/20/24 20:55 03/20/24 22:21 Chloride IV 03/23/24 20:54 Infused DAILY ERICKA Infusion Dextrose/Sodium Chloride 1,000 mls @ 125 mls/hr 03/20/24 21:00 03/20/24 22:21 D5ns IVCONT 125 mls/hr .Q8H ERICKA Administration Phenobarbital Sodium 205 mg 03/20/24 23:00 03/20/24 23:45 Phenobarbital Sodium 130 Mg/Ml Vial Im Q3hx2 IM 03/21/24 02:01 205 mg Q3H ERICKA Administration Sodium Chloride 3 ml 03/21/24 00:00 03/21/24 00:06 0.9 % Sodium Chloride Flush 3 Ml Syringe IVFLUSH Not Given QSHIFT ERICKA Discontinued Medications Generic Name Dose Route Start Last Admin Trade Name Freq PRN Reason Stop Dose Admin Sodium Chloride 1,000 mls @ 999 mls/hr 03/20/24 18:21 03/20/24 19:53 Ns IV 03/20/24 19:21 Infused .Q1H1M ONE Infusion Lorazepam 2 mg 03/20/24 18:26 03/20/24 18:50 Lorazepam 2 Mg/Ml Vial IVPUSH 03/20/24 18:27 2 mg ONCE ONE Administration Phenobarbital Sodium 274 mg 03/20/24 20:00 03/20/24 20:01 Phenobarbital Sodium 130 Mg/Ml Im Once IM 03/20/24 20:01 274 mg ONCE ONE Administration Discharge Plan Discharge Clinical Impression: Alcohol use disorder, severe, dependence Alcohol withdrawal Qualifiers: Complication of substance-induced condition: uncomplicated Qualified Code(s): F10.930 - Alcohol use, unspecified with withdrawal, uncomplicated Patient Disposition: Admitted As Inpatient
--- NOTE | 2024-03-20 18:33 | MHC.EDTECH ---
Patient Refused this Tech to obtain blood draw. PT is upset and aggressive at the moment. Patients mother is at bedsidtrying to matthieu the patient down and have him cooperate with medical care. IGNACIO Weber made aware
[2024-03-20 18:50] LABS: MANUAL DIFF FLAG NO
[2024-03-20] MEDS: LORazepam 2 MG/ML VIAL IVPUSH (18:50)
[2024-03-20] MEDS: 0.9 % Sodium Chloride 1,000 ML 999 ML IV (18:50)
[2024-03-20 19:00] LABS: Basophils Percent Auto 0.7 % (0-2); Eosinophils Absolute Auto 0.1 X10*3/uL (0.0-0.4); Eosinophils Percent Auto 0.9 % (0-4); Hematocrit 45.1 % (42.0-52.0); Hemoglobin 15.6 g/dl (14.0-18.0); Imm Gran Abs Auto 0.01 X10*3/uL (0.00-0.03); Imm Gran Pct Auto 0.2 % (0.0-0.4); Lymphocytes Absolute Auto 2.9 X10*3/uL (1.2-4.9); Lymphocytes Percent Auto 52.3 % (20-40); Mean Corpuscular HGB Conc 34.6 g/dl (31.0-36.0); Mean Corpuscular Hemoglobin 30.9 pg (27.0-33.0); Mean Corpuscular Volume 89.3 fL (80.0-98.0); Mean Platelet Volume 8.6 fL (9.4-12.4); Monocytes Absolute Auto 0.4 X10*3/uL (0.1-1.2); Monocytes Percent Auto 6.4 % (2-11); Neutrophils Absolute Auto 2.2 x10*3/uL (2.0-8.3); Neutrophils Percent Auto 39.5 % (45-73); Platelet Count 311 X10*3/uL (160-400); Red Blood Count 5.05 X10*6/uL (4.60-5.80); Red Cell Distribution Width 14.6 % (11.0-16.0); White Blood Count 5.5 X10*3/uL (4.8-10.8)
[2024-03-20 19:04] LABS: Ethanol 396 mg/dL
[2024-03-20 19:09] LABS: Alanine Aminotransferase 64 U/L (0-40); Albumin Level 4.5 g/dL (3.5-5.0); Alkaline Phosphatase 96 U/L (39-117); Anion Gap 22 (12-20); Aspartate Amino Transferase 77 U/L (5-37); Bilirubin Direct < 0.2 mg/dL (0.0-0.5); Bilirubin Total 0.2 mg/dL (0.0-1.0); Blood Urea Nitrogen 10 mg/dL (9-16); Calcium 9.3 mg/dL (8.4-10.2); Carbon Dioxide 26 mmol/L (22-29); Chloride 101 mmol/L (96-108); Creatinine Clr Calc Pharmacy 118.4; Estimated Glomerular Filt Rate > 60; Glucose Random 98 mg/dL (60-115); Lipase 38 U/L (8-78); Sodium 145 mmol/L (135-145); Total Protein 8.2 g/dL (6.5-8.0)
[2024-03-20] MEDS: PHENobarbitaL sodium 130 MG/ML IM ONCE 274 MG IM (20:01)
--- NOTE | 2024-03-20 21:03 | P.HPHOSP_ITS ---
History of Present Illness Date of Service: 03/20/24 Attending physician on admission: Yessica Delacruz Chief Complaint: Shortness on breath Fidencio Nash is a very pleasant 33 years old man with past medical history significant for depression, anxiety and alcohol abuse presents to the emergency department complaining of shortness of breath on and off associated with she has tightness. He associated this to extreme anxiety. He also has palpitations, nausea, vomiting or diarrhea. Reported abdominal discomfort. He has been drinking excessively. He usually drinks 16 showed some vodka. Last time he drank was 48 hours ago. He has not been taking his anxiety and depression medications. He denies suicidal thoughts or plans. He denies history of seizures due to alcohol withdrawal. He also reports cocaine use. In the ED, he was found to have tachycardia, tachypnea and hypertension. Blood workup showed no leukocytosis. Hemoglobin and platelets are normal. There are no electrolyte imbalances. Renal function is normal. Transaminases are elevated. Bilirubin, lipase and alk-phos are normal. Alcohol level is 396. CXR is negative. ED tx: Phenobarbital protocol (274 mg IM), Ativan 2 mg IV, NS 1 L bolus. Review of Systems 2 Review of Systems: All 12 systems were reviewed and normal except as noted in HPI. [facility] Medical History (Updated 03/20/24 @ 21:24 by Yessica Delacruz MD) Anxiety Alcohol abuse Active substance abuse Social History Household Members: None Housing: Condominium Do you presently have visiting nurse or other home services: No Alcohol intake: current Alcohol intake frequency: 3 or more drinks per day Alcohol type: hard liquor Patient Tobacco Use Status: Former Tobacco user Tobacco use type: Smokeless Tobacco Smoked in Last 30 Days: No Advance Directives: No Advance Directives Information Provided: No Do you have a plan to hurt others: No Plan service: No Meds Allergies Allergy/AdvReac Type Severity Reaction Status Date / Time cheese AdvReac Diarrhea Verified 03/20/24 18:16 Active Medications: Current Medications Acetaminophen (Acetaminophen 325 Mg Tablet) 975 mg PO Q6H PRN PRN Reason: Pain, Mild (Pain Scale 1-3), fever or headache Folic Acid (Folic Acid 1 Mg Tablet) 1 mg PO DAILY ERICKA Heparin Sodium (Porcine) (Heparin Sodium,Porcine 5,000 Unit/Ml Vial) 5,000 unit SUBCUT Q12H [facility] Thiamine HCl 100 mg/ Sodium (Chloride) 101 mls @ 202 mls/hr IV DAILY ERICKA Stop: 03/23/24 20:54 Dextrose/Sodium Chloride (D5ns) 1,000 mls @ 125 mls/hr IVCONT .Q8H [facility] Multivitamins/Vitamin C (Multivitamin Tablet) 1 tab PO DAILY [facility] Ondansetron HCl (Ondansetron Hcl 4 Mg/2 Ml Vial) 4 mg IVPUSH Q8H PRN PRN Reason: Nausea and Vomiting Pharmacy Consult (Consult Rx Etoh Phenob Im/Po) 1 each MISCELLANE ONCE PRN; Protocol PRN Reason: Consult order Phenobarbital (Phenobarbital 15 Mg Tablet) 45 mg PO BID [facility] Stop: 03/22/24 21:01 Phenobarbital (Phenobarbital 15 Mg Tablet) 15 mg PO BID [facility] Stop: 03/24/24 21:01 Phenobarbital (Phenobarbital 15 Mg Tablet) 15 mg PO DAILY [facility] Stop: 03/26/24 09:01 Phenobarbital Sodium (Phenobarbital Sodium 130 Mg/Ml Vial Im Q3hx2) 205 mg IM Q3H ERICKA Stop: 03/21/24 02:01 Sodium Chloride (0.9 % Sodium Chloride Flush 3 Ml Syringe) 3 ml IVFLUSH QSHIFT [facility] Home Medications ?Medication ?Instructions ?Recorded ?Confirmed ?Last Taken ?Type hydroxyzine pamoate 100 mg capsule 200 mg PO BEDTIME PRN Insomnia 02/27/24 02/27/24 Unknown History sertraline 50 mg tablet 50 mg PO BEDTIME 02/27/24 02/27/24 Unknown History Physical Exam 2 Vital Signs and Narrative: Vital Signs: Last Vital Signs Temp 97.5 F 03/20/24 18:10 Pulse 125 H 03/20/24 18:10 Resp 26 H 03/20/24 18:10 BP 153/83 H 03/20/24 18:10 Pulse Ox 99 03/20/24 18:10 O2 Del Method Room Air 03/20/24 18:10 BMI result Body Mass Index 25.1 Constitutional - Awake and Alert, No apparent distress. Drowsy. Looks sad. HEENT - PERRL, EOMI. Normal sclerae. Dry oral mucosa. Heart - Tachycardia. No murmus. Lungs - Normal lung expansion, Normal respiratory effort, No respiratory distress, CTA bilaterally Abdomen - NT / ND; +BS; No rebound or guarding Extremities - No calf tenderness bilaterally, no swelling. Musculoskeletal - Normal inspection, normal ROM. Skin - Warm/Dry. No jaundice. Neurological - Alert & oriented x3. Delayed speech. No focal weakness. Psychological - Depressed affect Results Labs 03/20/24 18:36 03/20/24 18:36 Labs: Laboratory Results - last 24 hr 03/20/24 18:36 MCV 89.3 MCH 30.9 MCHC 34.6 RDW 14.6 Plt Count 311 MPV 8.6 L Immature Gran % (Auto) 0.2 Neut % (Auto) 39.5 L Lymph % (Auto) 52.3 H [place] % (Auto) 6.4 Eos % (Auto) 0.9 Baso % (Auto) 0.7 Lymph # (Auto) 2.9 [place] # (Auto) 0.4 Eos # (Auto) 0.1 Baso # (Auto) 0.0 Abs Immat Gran (auto) 0.01 Absolute Neuts (auto) 2.2 Absolute Nucleated RBC 0.000 Nucleated RBC % (auto) 0.0 Anion Gap 22 H Estim Creat Clear Calc 118.4 Estimated GFR > 60 Random Glucose 98 Calcium 9.3 Magnesium 2.0 Total Bilirubin 0.2 Direct Bilirubin < 0.2 AST 77 H ALT 64 H Alkaline Phosphatase 96 Total Protein 8.2 H Albumin 4.5 Lipase 38 Ethyl Alcohol 396 H* Assessment and Plan (1) Alcohol withdrawal: Qualifiers: Complication of substance-induced condition: uncomplicated Qualified Code(s): F10.930 - Alcohol use, unspecified with withdrawal, uncomplicated Status: Acute (2) Alcohol use disorder, severe, dependence: Status: Acute Plan Fidencio Nash is a 33 y/o man admitted with: * Alcohol withdrawal. Admit to hospitalist service. Telemetry. CIWA. Continue phenobarbital protocol. Thiamine 100 mg IV daily 1st dose now followed by IV fluids: D5/0.9SS. Start therapy with folic acid and multivitamins. Case management/social work consult. Addiction medicine consult. * Chest pain, palpitations and shortness of breath likely secondary to above and underlying severe anxiety; improving. Check ECG. Telemetry. DVT prophylaxis: Heparin Code status: Full Patient will need hospitalization for at least 2 midnights for alcohol withdrawal treatment phenobarbital, thiamine, folic acid and multivitamins. He will also need evaluation addiction medicine and case management/social work. Quality Stroke Does the patient have a stroke diagnosis?: No VTE Prior VTE?: No VTE Risk Level:: Medical - moderate - high VTE Device Contraindication: Treatment Not Indicated VTE Drug Contraindication: N/A - Med Ordered
[2024-03-20] MEDS: Thiamine HCL 100 MG in 0.9 % Sodium Chloride 100 ML 202 MG IV (21:43)
[2024-03-20] MEDS: Dextrose 5 % and 0.9 % NaCl 1,000 ML 125 ML IVCONT (22:21)
[2024-03-20] MEDS: PHENobarbitaL sodium 130 MG/ML VIAL IM Q3Hx2 205 MG IM (23:45)
[2024-03-20 23:51] VITALS: BP 113/73; PULSE 94; RESP 18; TEMP 36.4; O2SAT 98
[2024-03-21] VITALS (7 sets, daily range): BP systolic 108–139; BP diastolic 58–94; PULSE 65–93; RESP 18–20; TEMP 36–36.8; O2SAT 95–99; BMI 25.0
[2024-03-21] MEDS: Acetaminophen 325 MG TABLET 975 MG PO ×3 (01:25→19:30)
[2024-03-21] MEDS: PHENobarbitaL sodium 130 MG/ML VIAL IM Q3Hx2 205 MG IM (02:45)
[2024-03-21] MEDS: Dextrose 5 % and 0.9 % NaCl 1,000 ML 125 ML IVCONT ×3 (05:50→23:27)
[2024-03-21 06:12] LABS: MANUAL DIFF FLAG NO
[2024-03-21 06:28] LABS: Basophils Percent Auto 0.9 % (0-2); Eosinophils Absolute Auto 0.2 X10*3/uL (0.0-0.4); Eosinophils Percent Auto 3.4 % (0-4); Hematocrit 38.1 % (42.0-52.0); Hemoglobin 13.2 g/dl (14.0-18.0); Imm Gran Abs Auto 0.01 X10*3/uL (0.00-0.03); Imm Gran Pct Auto 0.2 % (0.0-0.4); Lymphocytes Absolute Auto 1.9 X10*3/uL (1.2-4.9); Lymphocytes Percent Auto 42.6 % (20-40); Mean Corpuscular HGB Conc 34.6 g/dl (31.0-36.0); Mean Corpuscular Hemoglobin 30.8 pg (27.0-33.0); Mean Platelet Volume 8.8 fL (9.4-12.4); Monocytes Absolute Auto 0.3 X10*3/uL (0.1-1.2); Monocytes Percent Auto 7.4 % (2-11); Neutrophils Percent Auto 45.5 % (45-73); Platelet Count 229 X10*3/uL (160-400); Red Blood Count 4.28 X10*6/uL (4.60-5.80); Red Cell Distribution Width 14.5 % (11.0-16.0); White Blood Count 4.5 X10*3/uL (4.8-10.8)
[2024-03-21 06:32] LABS: Alanine Aminotransferase 49 U/L (0-40); Albumin Level 3.5 g/dL (3.5-5.0); Alkaline Phosphatase 75 U/L (39-117); Anion Gap 15 (12-20); Aspartate Amino Transferase 63 U/L (5-37); Bilirubin Total 0.5 mg/dL (0.0-1.0); Blood Urea Nitrogen 10 mg/dL (9-16); Calcium 8.5 mg/dL (8.4-10.2); Carbon Dioxide 26 mmol/L (22-29); Chloride 103 mmol/L (96-108); Creatinine Clr Calc Pharmacy 137.9; Estimated Glomerular Filt Rate > 60; Glucose Random 106 mg/dL (60-115); Potassium 3.5 mmol/L (3.3-5.1); Sodium 140 mmol/L (135-145); Total Protein 6.1 g/dL (6.5-8.0)
[2024-03-21] MEDS: ondansetron HCL 4 MG/2 ML VIAL IVPUSH ×2 (07:26→19:38)
[2024-03-21] MEDS: 0.9 % Sodium Chloride Flush 3 ML SYRINGE IVFLUSH ×3 (07:29→23:28)
--- NOTE | 2024-03-21 07:44 | PC.NURSE ---
CIWA 18 , anxiety, tremors, headache , nausea , DR Moreno was notified. Pt medicated with Acetaminophen for headache 06/08 per his request
[2024-03-21] MEDS: PHENobarbitaL sodium 130 MG/ML VIAL IM (08:09)
[2024-03-21] MEDS: Folic Acid 1 MG TABLET PO (08:16)
[2024-03-21] MEDS: Heparin Sodium,Porcine 5,000 UNIT/ML VIAL 5000 UNIT SUBCUT ×2 (08:16→20:51)
[2024-03-21] MEDS: Multivitamin TABLET 1 TAB PO (08:16)
[2024-03-21] MEDS: PHENobarbitaL 15 MG TABLET 45 MG PO ×2 (10:27→20:48)
[2024-03-21] MEDS: Potassium Chloride Packet 20 MEQ PACKET PO (10:27)
--- NOTE | 2024-03-21 10:27 | PHA.MEDREC ---
Pharmacy Consult ? Medication Reconciliation Pharmacy has completed the medication reconciliation. Spoke to patient at bedside, he was able to confirm his medications and stated that he had been out of hydroxyzine for some time but it helped him sleep and he is trying to get it refilled.
[2024-03-21] MEDS: Thiamine HCL 100 MG in 0.9 % Sodium Chloride 100 ML 202 MG IV (10:28)
--- NOTE | 2024-03-21 12:12 | MHC.CM.PN ---
Pt self-care, lives at home alone. Pts mother can transport him home at discharge. No HCP, pt declined at this time. Pt states he is interested in a detox program, he feels it is time. Pt has no PCP.
--- NOTE | 2024-03-21 13:28 | PC.NURSE ---
patient stated that he wants to end his life , pt is crying , talking to his mother How can you love me for all I have done ? . pt's mother is visiting him now . Afshan 1:1 placed , DR Moreno notified ,
--- NOTE | 2024-03-21 14:47 | PM.PSYCN ---
History of Present Illness Date of Service: 03/21/2024 Chief Complaint: alcohol withdrawal Reason for Consult: SI Requesting physician: Guilherme Moreno Discussed with referring provider: Yes Sources of Information: patient interviewed, chart reviewed and crisis/core team assessment reviewed HPI Narrative: Mr. Nash is a 33 year-old male with hx of alcohol use disorder and depression who was admitted o medicine for alcohol withdrawal with phenobarbital protocol due to hx of alcohol withdrawal seizures. Pt made statement to his RN this morning that he wanted to . Pt seen today with his mother present. Pt presents as tearful, hopeless. He reports episodic severe anxiety with sense of impending doom. He denies any plan or intent to harm himself, but endorses feeling very hopeless in terms of his recovery, as he continues to relapse and ongoing depressed and anxious mood. He reports he far from the happy person he used to be. He reports his alcohol use has increased. He reports disrupted sleep. He had been in the past on sertraline highest dose 50mg po daily. He tried naltrexon but felt off and had GI side effects. No VH/AH. No hx of delusions. [facility] Medical History (Updated 03/30/24 @ 00:02 by Background Daemon) Panic disorder Anxiety Alcohol abuse Active substance abuse Diagnostics Vital Signs (24Hr): Vital Signs - 24 hr 03/20/24 18:10 03/20/24 23:51 03/21/24 01:25 Temperature 97.5 F 97.6 F 97.4 F Pulse Rate 125 H 94 93 Respiratory Rate 26 H 18 20 Blood Pressure 153/83 H 113/73 122/80 Pulse Oximetry 99 98 97 Oxygen Delivery Method Room Air Room Air Room Air 03/21/24 03:28 03/21/24 07:18 03/21/24 11:22 Temperature 97.2 F 97.4 F 97.5 F Pulse Rate 85 90 87 Respiratory Rate 20 20 20 Blood Pressure 108/58 L 123/76 138/70 Pulse Oximetry 95 96 96 Oxygen Delivery Method Room Air Room Air Room Air BMI result Body Mass Index 25.0 Labs 03/21/24 05:51 03/21/24 05:51 Labs: Laboratory Results - last 48 hr 03/20/24 03/21/24 18:36 05:51 WBC 5.5 4.5 L RBC 5.05 4.28 L Hgb 15.6 13.2 L Hct 45.1 38.1 L MCV 89.3 89.0 MCH 30.9 30.8 MCHC 34.6 34.6 RDW 14.6 14.5 Plt Count 311 229 D MPV 8.6 L 8.8 L Immature Gran % (Auto) 0.2 0.2 Neut % (Auto) 39.5 L 45.5 Lymph % (Auto) 52.3 H 42.6 H [place] % (Auto) 6.4 7.4 Eos % (Auto) 0.9 3.4 Baso % (Auto) 0.7 0.9 Lymph # (Auto) 2.9 1.9 [place] # (Auto) 0.4 0.3 Eos # (Auto) 0.1 0.2 Baso # (Auto) 0.0 0.0 Abs Immat Gran (auto) 0.01 0.01 Absolute Neuts (auto) 2.2 2.0 Absolute Nucleated RBC 0.000 0.000 Nucleated RBC % (auto) 0.0 0.0 Sodium 145 140 Potassium 4.0 3.5 Chloride 101 103 Carbon Dioxide 26 26 Anion Gap 22 H 15 BUN 10 10 Creatinine 0.85 0.73 Estim Creat Clear Calc 118.4 137.9 Estimated GFR > 60 > 60 Random Glucose 98 106 Calcium 9.3 8.5 D Magnesium 2.0 Total Bilirubin 0.2 0.5 Direct Bilirubin < 0.2 AST 77 H 63 H ALT 64 H 49 H Alkaline Phosphatase 96 75 Total Protein 8.2 H 6.1 L Albumin 4.5 3.5 Lipase 38 Ethyl Alcohol 396 H* Mental Status Exam Mental Status Exam Narrative: Appearance: wearing hospital gown, tearful, in NAD Behavior: cooperative Psychomotor: no agitation or retardation noted Speech: clear, normal rate/rhythm, spontaneous TP: linear TC: feeling hopeless Mood: depressed Affect: congruent, blunted SI: passive HI: none VH/AH: none Delusions: none Insight/judgment: fair x 2 Memory/cog: alert oriented x 3. grossly intact Medications Medications Current Medications Acetaminophen (Acetaminophen 325 Mg Tablet) 975 mg PO Q6H PRN PRN Reason: Pain, Mild (Pain Scale 1-3), fever or headache Last Admin: 03/21/24 07:26 Dose: 975 mg Folic Acid (Folic Acid 1 Mg Tablet) 1 mg PO DAILY [facility] Last Admin: 03/21/24 08:16 Dose: 1 mg Heparin Sodium (Porcine) (Heparin Sodium,Porcine 5,000 Unit/Ml Vial) 5,000 unit SUBCUT Q12H [facility] Last Admin: 03/21/24 08:16 Dose: 5,000 unit Thiamine HCl 100 mg/ Sodium (Chloride) 101 mls @ 202 mls/hr IV DAILY [facility] Stop: 03/23/24 20:54 Last Infusion: 03/21/24 11:02 Dose: Infused Dextrose/Sodium Chloride (D5ns) 1,000 mls @ 125 mls/hr IVCONT .Q8H [facility] Last Admin: 03/21/24 05:50 Dose: 125 mls/hr Multivitamins/Vitamin C (Multivitamin Tablet) 1 tab PO DAILY [facility] Last Admin: 03/21/24 08:16 Dose: 1 tab Ondansetron HCl (Ondansetron Hcl 4 Mg/2 Ml Vial) 4 mg IVPUSH Q8H PRN PRN Reason: Nausea and Vomiting Last Admin: 03/21/24 07:26 Dose: 4 mg Pharmacy Consult (Consult Rx Etoh Phenob Im/Po) 1 each MISCELLANE ONCE PRN; Protocol PRN Reason: Consult order Phenobarbital (Phenobarbital 15 Mg Tablet) 45 mg PO BID [facility] Stop: 03/22/24 21:01 Last Admin: 03/21/24 10:27 Dose: 45 mg Phenobarbital (Phenobarbital 15 Mg Tablet) 15 mg PO BID [facility] Stop: 03/24/24 21:01 Phenobarbital (Phenobarbital 15 Mg Tablet) 15 mg PO DAILY [facility] Stop: 03/26/24 09:01 Sodium Chloride (0.9 % Sodium Chloride Flush 3 Ml Syringe) 3 ml IVFLUSH QSHIFT [facility] Last Admin: 03/21/24 07:29 Dose: 3 ml Allergies Allergies Allergy/AdvReac Type Severity Reaction Status Date / Time cheese AdvReac Diarrhea Verified 03/20/24 18:16 Assessment & Plan Assessment & Plan (1) MDD (major depressive disorder), recurrent episode, severe: Status: Acute Code(s): F33.2 - Major depressive disorder, recurrent severe without psychotic features (2) Alcohol use disorder, severe, dependence: Status: Acute Code(s): F10.20 - Alcohol dependence, uncomplicated Plan Mr. Nash is a 33 year-old male with hx of alcohol use disorder, admitted for alcohol withdrawal. Pt also presents as very depressed hopeless, although not with active plan to harm himself or others. We discussed that once medically clear, pt should transfered to inpt psych admission for further stabilization, containment and safety. In terms of medication- for now consider adding gbapentin 300mg po TID. we will have to decide whether to restart sertraline and increase dose or consider different antidepressant. PLAN 1. referred to care team for bed search for [facility] once medically clear. Total time managing care of this patient today ____ minutes.
--- NOTE | 2024-03-21 15:28 | HO.PM.IMPN ---
Subjective Subjective Date of Service: 03/21/24 Interval History: alcohol withdrawal depression/SI Review of Systems anxious ,tremers no fevers Physical Exam Vital Signs: Vital Signs: Last Vital Signs Temp 97.5 F 03/21/24 11:22 Pulse 87 03/21/24 11:22 Resp 20 03/21/24 11:22 BP 138/70 03/21/24 11:22 Pulse Ox 96 03/21/24 11:22 O2 Del Method Room Air 03/21/24 11:22 BMI result Body Mass Index 25.0 Appearance: Alert.? Oriented X3.? anxious and tramulous cvs: rrr, [id number] , no murmur res: clear to auscultation ,no rhonchii or wheezing abd: no rebound or guarding ,nt, bs present. ext pulses present , no cyanosis . neuro: axo3 , nonfocal. Objective Data Active Medications Acetaminophen (Acetaminophen 325 Mg Tablet) 975 mg PO Q6H PRN PRN Reason: Pain, Mild (Pain Scale 1-3), fever or headache Last Admin: 03/21/24 07:26 Dose: 975 mg Documented By: HENRIK Folic Acid (Folic Acid 1 Mg Tablet) 1 mg PO DAILY [facility] Last Admin: 03/21/24 08:16 Dose: 1 mg Documented By: HENRIK Heparin Sodium (Porcine) (Heparin Sodium,Porcine 5,000 Unit/Ml Vial) 5,000 unit SUBCUT Q12H [facility] Last Admin: 03/21/24 08:16 Dose: 5,000 unit Documented By: HENRIK Thiamine HCl 100 mg/ Sodium (Chloride) 101 mls @ 202 mls/hr IV DAILY [facility] Stop: 03/23/24 20:54 Last Infusion: 03/21/24 11:02 Dose: Infused Documented By: HENRIK Dextrose/Sodium Chloride (D5ns) 1,000 mls @ 125 mls/hr IVCONT .Q8H [facility] Last Admin: 03/21/24 05:50 Dose: 125 mls/hr Documented By: SUSANA Multivitamins/Vitamin C (Multivitamin Tablet) 1 tab PO DAILY [facility] Last Admin: 03/21/24 08:16 Dose: 1 tab Documented By: HENRIK Ondansetron HCl (Ondansetron Hcl 4 Mg/2 Ml Vial) 4 mg IVPUSH Q8H PRN PRN Reason: Nausea and Vomiting Last Admin: 03/21/24 07:26 Dose: 4 mg Documented By: HENRIK Pharmacy Consult (Consult Rx Etoh Phenob Im/Po) 1 each MISCELLANE ONCE PRN; Protocol PRN Reason: Consult order Phenobarbital (Phenobarbital 15 Mg Tablet) 45 mg PO BID [facility] Stop: 03/22/24 21:01 Last Admin: 03/21/24 10:27 Dose: 45 mg Documented By: HENRIK Phenobarbital (Phenobarbital 15 Mg Tablet) 15 mg PO BID [facility] Stop: 03/24/24 21:01 Phenobarbital (Phenobarbital 15 Mg Tablet) 15 mg PO DAILY [facility] Stop: 03/26/24 09:01 Sodium Chloride (0.9 % Sodium Chloride Flush 3 Ml Syringe) 3 ml IVFLUSH QSHIFT [facility] Last Admin: 03/21/24 07:29 Dose: 3 ml Documented By: HENRIK Labs 03/21/24 05:51 03/21/24 05:51 Labs: Laboratory Results - last 24 hr 03/20/24 03/21/24 18:36 05:51 MCV 89.3 89.0 MCH 30.9 30.8 MCHC 34.6 34.6 RDW 14.6 14.5 Plt Count 311 229 D MPV 8.6 L 8.8 L Immature Gran % (Auto) 0.2 0.2 Neut % (Auto) 39.5 L 45.5 Lymph % (Auto) 52.3 H 42.6 H Petroleum % (Auto) 6.4 7.4 Eos % (Auto) 0.9 3.4 Baso % (Auto) 0.7 0.9 Lymph # (Auto) 2.9 1.9 Petroleum # (Auto) 0.4 0.3 Eos # (Auto) 0.1 0.2 Baso # (Auto) 0.0 0.0 Abs Immat Gran (auto) 0.01 0.01 Absolute Neuts (auto) 2.2 2.0 Absolute Nucleated RBC 0.000 0.000 Nucleated RBC % (auto) 0.0 0.0 Anion Gap 22 H 15 Estim Creat Clear Calc 118.4 137.9 Estimated GFR > 60 > 60 Random Glucose 98 106 Calcium 9.3 8.5 D Magnesium 2.0 Total Bilirubin 0.2 0.5 Direct Bilirubin < 0.2 AST 77 H 63 H ALT 64 H 49 H Alkaline Phosphatase 96 75 Total Protein 8.2 H 6.1 L Albumin 4.5 3.5 Lipase 38 Ethyl Alcohol 396 H* Assessment and Plan (1) Alcohol withdrawal: Status: Acute Plan d2 33yo M admitted for EtOH withdrawal AUD with withdrawal moniter ciwa - continue phenobarbital taper, MVI/folate/thimaine - Addiction Medicine consult pending chest tightness : possible related to anxiety,improved. moniter on tele . depression/si added psych eval sitter dispo after care team eval when medically clear In my clinical judgment, the patient requires continued inpatient hospitalization for the following reasons: inpatient phenobarbital taper Total time managing care of this patient today: 35 minutes. Quality Stroke Does the patient have a stroke diagnosis?: No VTE Prior VTE?: No VTE Risk Level:: Medical - moderate - high VTE Device Contraindication: Treatment Not Indicated VTE Drug Contraindication: N/A - Med Ordered
[2024-03-21] MEDS: hydrOXYzine HCL 50 MG TABLET 200 MG PO (20:49)
[2024-03-22 03:04] VITALS: BP 113/73; PULSE 74; RESP 20; TEMP 36.3; O2SAT 96
[2024-03-22 07:11] VITALS: BP 152/77; PULSE 92; RESP 20; TEMP 36; O2SAT 98
[2024-03-22] MEDS: Sertraline HCL 50 MG TABLET PO (07:54)
[2024-03-22] MEDS: Folic Acid 1 MG TABLET PO (07:54)
[2024-03-22] MEDS: PHENobarbitaL 15 MG TABLET 45 MG PO (07:54)
[2024-03-22] MEDS: Multivitamin TABLET 1 TAB PO (07:54)
[2024-03-22] MEDS: Acetaminophen 325 MG TABLET 975 MG PO (07:54)
[2024-03-22] MEDS: Thiamine HCL 100 MG in 0.9 % Sodium Chloride 100 ML 202 MG IV (07:55)
[2024-03-22] MEDS: Heparin Sodium,Porcine 5,000 UNIT/ML VIAL 5000 UNIT SUBCUT (07:55)
[2024-03-22] MEDS: ondansetron HCL 4 MG/2 ML VIAL IVPUSH (07:55)
[2024-03-22] MEDS: Dextrose 5 % and 0.9 % NaCl 1,000 ML 125 ML IVCONT (08:03)
[2024-03-22 11:19] VITALS: BP 127/74; PULSE 64; RESP 20; TEMP 36.6; O2SAT 98
--- NOTE | 2024-03-22 13:03 | MHC.RECOVRN ---
AUDIT-C Brief Intervention Pt had positive screen for unhealthy alcohol use on admission, subsequently met with t/w to discuss alcohol use and recovery supports/options. Pt voices concern regarding alcohol use and is aware that drinking at unhealthy levels is known to increase risk of alcohol related health problems. Pt reports alcohol use, 1.3 liters liquor day prior to and a few nips day of presentation. Pt states I was doing fantastic for a little while. Pt expresses how alcohol use has impacted health, including negative impact on mental health. Pt reports utilizing alcohol to calm anxiety, states It works perfectly. Pt acknowledges needing more support regarding mental health. Discussed risk reduction strategies including drinking below the recommended limit. Provided pt with written resources including information on inpatient and outpatient treatment, TRISTAN, harm reduction, and recovery coaching. Pt plans for inpatient behavioral health or dual diagnosis admission. Upon completion, pt would like to follow up with the [facility]. Pt provided with t/w contact information if questions or concerns arise. Denies other questions or concerns at this time.
--- NOTE | 2024-03-22 13:44 | MHC.CM.PN ---
EMR reviewed and per MD rounds, pt is not medically cleared for discharge, per CARE Team, pt is appropriate for inpatient psych LOC, and a bed search has been conducted.
--- NOTE | 2024-03-22 14:32 | P.DS_ITS ---
DS: Providers Provider Date of Service: 03/22/24 Date of admission: 03/20/24 20:51 Date of discharge: 03/22/24 Primary care physician: None Physician Consults: 03/20/24 20:55 Addiction Medicine Routine Consulting Provider: Addiction Covering Reason for consultation: Depression, alcohol abuse/withdrawal Has provider been notified: No 03/21/24 01:21 Addiction Medicine Routine Consulting Provider: Addiction Covering Reason for consultation: recently relapsed Has provider been notified: Yes 03/21/24 13:46 Consult for Sitter Routine Reason for consultation: dperession/si Consult to Psychiatry Routine Consulting Provider: Psych Covering Reason for consultation: alcoholism /depression Has provider been notified: No 03/21/24 14:42 Consult to Care Team Routine Comment: Reason for consultation: depression/si Attending physician on discharge: Guilherme Moreno Discharging clinician: Guilherme Moreno DS: Diagnosis Discharge Diagnosis (1) MDD (major depressive disorder), recurrent episode, severe: Status: Acute (2) Alcohol use disorder, severe, dependence: Status: Acute DS: Summary Hospital Course Hospital Course: HPI:33 years old man with past medical history significant for depression, anxiety and alcohol abuse presents to the emergency department complaining of shortness of breath on and off associated with she has tightness. He associated this to extreme anxiety. He also has palpitations, nausea, vomiting or diarrhea. Reported abdominal discomfort. He has been drinking excessively. He usually drinks 16 showed some vodka. Last time he drank was 48 hours ago. He has not been taking his anxiety and depression medications. He denies suicidal thoughts or plans. He denies history of seizures due to alcohol withdrawal. He also reports cocaine use. In the ED, he was found to have tachycardia, tachypnea and hypertension. Blood workup showed no leukocytosis. Hemoglobin and platelets are normal. There are no electrolyte imbalances. Renal function is normal. Transaminases are elevated. Bilirubin, lipase and alk-phos are normal. Alcohol level is 396. CXR is negative. ED tx: Phenobarbital protocol (274 mg IM), Ativan 2 mg IV, NS 1 L bolus. Hospital course: Patient was admitted for alcohol withdrawal-started on CIWA, phenobarb protocol, thiamine, folic acid -seems to be improved significantly. Patient also seem severely depressed and also seen by psych and care team- patient will need inpatient psych management for severe depression. Patient was strongly advised to abstain from alcohol, consider Addiction Team follow-up at psych. Above management discussed with the psych provider. Above management discussed with the patient in detail length he understand and in agreement with the plan- Total Assessment and coordination time spent 40 minute. Time Attestation Total time managing care of this patient today: 40 mintues. Discharge Coordination Time (in mins): 40 min Quality: Safe Use of Opioids Does Pt have an Active Cancer Diagnosis on the Problem List?: No Quality: Stroke Does the patient have a stroke diagnosis?: No Physical Exam Vital Signs: Vital Signs: Last Vital Signs Temp 97.9 F 03/22/24 11:19 Pulse 64 03/22/24 11:19 Resp 20 03/22/24 11:19 BP 127/74 03/22/24 11:19 Pulse Ox 98 03/22/24 11:19 O2 Del Method Room Air 03/22/24 11:19 BMI result Body Mass Index 25.0 Appearance: Alert.? Oriented X3.? cvs: rrr, [id number] . res: clear to auscultation ,no rhonchii or wheezing abd: no rebound or guarding ,nt, bs present. ext pulses present , no cyanosis . neuro: axo3 , nonfocal. psych: depressed mood. DS: Data Data Completed and Pending Completed studies during hospitalization [Text1]: Procedures Detoxification Services for Substance Abuse Treatment (02/26/24) Discharge Plan Discharge Anticipated Discharge Date/Time: 03/22/24 14:25 Patient Disposition: Xfer Psychiatric Hosp Discharge Diagnosis: alcohol withdrawals , depression with si. Referrals: Physician,None [Primary Care Provider] - 1 Week Discharge Medications: Continued folic acid 1 mg tablet 1 mg PO DAILY Qty: 30 0RF hydroxyzine pamoate 100 mg capsule 200 mg PO BEDTIME PRN (Reason: Insomnia) sertraline 50 mg tablet 50 mg PO DAILY thiamine HCl (vitamin B1) 100 mg tablet 100 mg PO DAILY Qty: 30 0RF Discharge Orders: Discharge Order (Routine); Ordered 03/22/24 Ordered By: Guilherme Moreno Diet: Advance to usual diet Activity on Discharge: As tolerated Stand Alone Forms: Patient Portal Discharge page Print Language: Barbadian Care Plan Goals: Patient was admitted for alcohol withdrawal-started on CIWA, phenobarb protocol, thiamine, folic acid -seems to be improved significantly. Patient also seem severely depressed and also seen by psych and care team- patient will need inpatient psych management for severe depression. Patient was strongly advised to abstain from alcohol, consider Addiction Team follow-up at psych. Above management discussed with the psych provider. Above management discussed with the patient in detail length he understand and in agreement with the plan- Total Assessment and coordination time spent 40 minute. Health Concerns: As above. Plan of Treatment: As above.
[2024-03-22 15:22] VITALS: BP 117/74; PULSE 62; RESP 20; TEMP 37.1; O2SAT 92
== END 2024-03-22 17:04 | DRG 751 ==
LOC: HO.ED 18:59 → HO.EDOVER 21:47 → HO.IMC 03-21 00:17
PROVIDERS: Physician Assistant Medical; Admitting Provider Internal Medicine; Emergency Provider Internal Medicine; Visit Provider Internal Medicine
DX: F33.2 Major depressive disorder, recurrent severe without psychotic features (principal); F10.229 Alcohol dependence with intoxication, unspecified; F10.239 Alcohol dependence with withdrawal, unspecified; Y90.8 Blood alcohol level of 240 mg/100 ml or more; Z79.899 Other long term (current) drug therapy
CPT/HCPCS: 36415; 80048; 80053; 80076; 80307; 83690; 83735; 85025; 93005; 99285; J1644; J2060; J2405; J2560; J3411; S9485

== ENCOUNTER → 2024-03-20 18:56 | Outpatient (BNV) | payer OTHER, SELFPAY | PROVIDERS: Emergency Provider Internal Medicine; Visit Provider Internal Medicine | DX: F33.2 Major depressive disorder, recurrent severe without psychotic features (principal); F10.230 Alcohol dependence with withdrawal, uncomplicated | CPT/HCPCS: 99223; 99232; 99239 ==

== ENCOUNTER 2024-03-20 20:51 | Outpatient (BNV) | payer OTHER, SELFPAY | END 2024-03-20 22:03 | PROVIDERS: Admitting Provider Internal Medicine; Emergency Provider Internal Medicine; Visit Provider Internal Medicine | DX: R00.0 Tachycardia, unspecified (principal) | CPT/HCPCS: 93010 ==

== ENCOUNTER → 2024-03-20 20:51 | Outpatient (BNV) | payer OTHER, SELFPAY | PROVIDERS: Admitting Provider Internal Medicine; Emergency Provider Internal Medicine; Visit Provider Social Worker | DX: F33.2 Major depressive disorder, recurrent severe without psychotic features (principal); F10.20 Alcohol dependence, uncomplicated | CPT/HCPCS: 99233 ==

== ENCOUNTER 2024-03-22 15:03 | Inpatient (IN) | payer OTHER, SELFPAY ==
[2024-03-22 17:32] VITALS: BP 140/82; PULSE 93; RESP 16; TEMP 36.4; O2SAT 96
[2024-03-22 18:04] VITALS: BMI 26.0
--- NOTE | 2024-03-22 19:24 | PC.ADMIT ---
Pt arrived from [facility] at 1725 after presently with acute withdrawal symptoms and endoring SI. Pt is currently on a phenobarbitol taper. Safety check performed, vital obtained and pt oriented to the unit. Pt has an accepted CV and is on 15 minutes checks for safety. During admission process pt is pleasant, calm, cooperative and engaged during conversation. When asked what led to the patients admission he reports, I have extreme anxiety. Sometime its so overwhelming and almost paralyzing. It hits me out of no where. It goes as fas as it comes sometimes. Pt also reports a long history of depression that runs in his family. alot of my immediate family are on antidepressants . Pt reports drinking heavily for 1-2 days every week about a handle. I drink a lot on day one and then have to drink again on day 2 because I feel like sh*t. I couldn't possibly go to day 3, I'd probably be . Pt reports a recent sec35 about 6months ago at [facility]. My mom and I had to convince the appellate court judge to make me go . Pt reports some cocaine and marijuana use occasionally . Pt also reports insomnia and difficulty sleeping. Pt denies current SI/HI/AH/VH. No medical issues known or reported at this time. Pt placed on 15 minute checks for safety.
[2024-03-22 20:00] VITALS: BP 125/82; PULSE 98; RESP 15; TEMP 36.6; O2SAT 95
[2024-03-22] MEDS: traZODone HCL 50 MG TABLET PO (22:55)
[2024-03-22] MEDS: PHENobarbitaL 15 MG TABLET 45 MG PO (22:55)
[2024-03-23 08:00] VITALS: BP 123/80; PULSE 70; RESP 17; TEMP 36.2; O2SAT 96
[2024-03-23] MEDS: PHENobarbitaL 15 MG TABLET PO ×2 (09:06→20:22)
[2024-03-23] MEDS: Sertraline HCL 50 MG TABLET PO (09:06)
[2024-03-23] MEDS: Thiamine HCL 100 MG TABLET PO (09:06)
[2024-03-23] MEDS: Folic Acid 1 MG TABLET PO (09:06)
[2024-03-23 09:35] LABS: Estimated Average Glucose 100 mg/dL; Hemoglobin A1c % 5.1 % (<6.0)
[2024-03-23 09:38] LABS: Cholesterol 204 mg/dL (<200); HDL Cholesterol 67 mg/dL (>40); LDL Cholesterol Calculated 94 mg/dL (<100); Magnesium 1.8 mg/dL (1.6-2.6); Triglycerides 217 mg/dL (<150)
[2024-03-23 09:53] LABS: Free T4 (Free Thyroxine) 0.79 ng/dL (0.71-1.85); Thyroid Stimulating Hormone 0.95 uIU/mL (0.32-4.0)
--- NOTE | 2024-03-23 09:56 | P.HPPS_ITS ---
HPI Date of Service: 03/23/24 Chief Complaint: alcohol use disorder, major depression, recurrent Sources of Information: patient interviewed, chart reviewed and crisis/core team assessment reviewed HPI Subjective Notes: Herring Warning and Conditional Voluntary Narrative: Patient is a 33 male, employed full-time, with history of depression, anxiety, panic and alcohol abuse/dependence who presents for worsening anxiety in the face of chronic alcoholism limited psychiatric treatment; currently on phenobarbital taper. Patient says he has resisted treatment for a long time however he is losing so many things in his life due to his anxiety, depression and subsequent severe alcohol addiction that he is finally willing to get help. Patient denies any SI at all, saying that he did tell the nurse I do not want to be here again but that was misinterpreted and that he only meant to say he does not want to be locked in this cycle of addiction and in a hopeless mind set. Patient reports that depression started in his early teenage years which worsened after his parents ; anxiety started in his 20s and soon after he started drinking alcohol which became daily and severe. Patient has episodes of severe depression that can last for several weeks during which he has most neurovegetative symptoms of depression; has severe panic attacks, up to 3 a week which are overwhelming and with an impending sense of doom; while he finds alcohol temporarily relieves his symptoms, he hates what alcohol addiction is doing to his life. Over the last 6 months he has tried to cut down and over the past 2 weeks he has been able to keep himself and drinking except for 3 specific days where he binged heavily. Patient tried to deal with withdrawal symptoms on his own however became tremulous diaphoretic, nauseous and so came [facility] for treatment. Patient denies any history of SI or SA; denies any history of manic type behaviors or episodes; no AVH. Patient agrees with medication treatment and therapy. 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 -Has 6-year-old daughter -abhinav left him about a year ago, due to his chronic alcoholism Substance History: Chronic daily alcohol abuse for about 10 years; for the past 6 months has been cutting down and over the past 2 weeks has only drank on 3 separate occasions, though heavily Occasional cocaine use Trauma History: Bullying in high school Diagnostics Vital Signs (24Hr): Vital Signs - 24 hr 03/22/24 17:32 03/22/24 20:00 03/23/24 08:00 Temperature 97.6 F 97.8 F 97.1 F Pulse Rate 93 98 70 Respiratory Rate 16 15 17 Blood Pressure 140/82 H 125/82 123/80 Pulse Oximetry 96 95 96 Oxygen Delivery Method Room Air Room Air BMI result Body Mass Index 26.0 Labs Labs: Laboratory Results - last 48 hr 03/23/24 08:54 Estimat Average Glucose 100 Hemoglobin A1c % 5.1 Magnesium 1.8 Triglycerides 217 H Cholesterol 204 H LDL Cholesterol, Calc 94 HDL Cholesterol 67 TSH 0.95 Free T4 0.79 Meds/Allergies Meds Home Medications ?Medication ?Instructions ?Recorded ?Confirmed ?Type hydroxyzine pamoate 100 mg capsule 200 mg PO BEDTIME PRN Insomnia 02/27/24 03/22/24 History sertraline 50 mg tablet 50 mg PO DAILY 02/27/24 03/22/24 History Allergies Allergies Allergy/AdvReac Type Severity Reaction Status Date / Time cheese AdvReac Diarrhea Verified 03/20/24 18:16 Mental Status Exam Mental Status Exam Narrative: Pt is alert and oriented; behavior is cooperative, friendly, tearful; patient is not in distress; dressed in casual attire with unkempt hair but adequate hygiene; mood is described as depressed, anxious and affect congruent, very tearful at times; eye contact appropriate; Speech is normal rate, volume and prosody and not pressured; no psychomotor agitation/retardation present; thought process is organized and goal directed; Thought content is on tx, struggling not to be hopeless; otherwise pertinent to relevant topics and without any delusional content, paranoid ideations or grandiosity; denies any SI/HI. There is no evidence of perceptual disturbance. Patients insight and judgment impaired but improving Assessment & Plan Assessment & Plan (1) MDD (major depressive disorder), recurrent episode, severe: Status: Acute Code(s): F33.2 - Major depressive disorder, recurrent severe without psychotic features (2) Panic disorder: Status: Acute Code(s): F41.0 - Panic disorder [episodic paroxysmal anxiety] (3) Alcohol use disorder, severe, dependence: Status: Acute Code(s): F10.20 - Alcohol dependence, uncomplicated Plan Patient is a 33 male, employed full-time, with history of depression, anxiety, panic and alcohol abuse/dependence who presents for worsening anxiety in the face of chronic alcoholism limited psychiatric treatment; currently on phenobarbital taper. Patient says he has resisted treatment for a long time however he is losing so many things in his life due to his anxiety, depression and subsequent severe alcohol addiction that he is finally willing to get help. Patient denies any SI at all, saying that he did tell the nurse I do not want to be here again but that was misinterpreted and that he only meant to say he does not want to be locked in this cycle of addiction and in a hopeless mind set. Patient reports that depression started in his early teenage years which worsened after his parents ; anxiety started in his 20s and soon after he started drinking alcohol which became daily and severe. Patient has episodes of severe depression that can last for several weeks during which he has most neurovegetative symptoms of depression; has severe panic attacks, up to 3 a week which are overwhelming and with an impending sense of doom; while he finds alcohol temporarily relieves his symptoms, he hates what alcohol addiction is doing to his life. Over the last 6 months he has tried to cut down and over the past 2 weeks he has been able to keep himself and drinking except for 3 specific days where he binged heavily. Patient tried to deal with withdrawal symptoms on his own however became tremulous diaphoretic, nauseous and so came to the hospital for treatment. Patient denies any history of SI or SA; denies any history of manic type behaviors or episodes; no AVH. Patient agrees with medication treatment and therapy. Formulation/clinical reason: Patient decades long history of depression and anxiety; unfortunately he never sought psychiatric help and instead turned to alcohol which has now become an equally debilitating problem. Patient however presents as very eager to become sober and get treatment for both depression and anxiety. Agrees to continue with Zoloft and to titrate. Also will try clonidine to help with insomnia. Wants therapy and wants help with sobriety post discharge. -rule out [facility] CV q15 Continue phenobarb taper.... Increase Zoloft to 75 mg daily Add clonidine 0.1 mg q.h.s. for chronic insomnia Continue trazodone p.r.n. Ativan 1 mg daily p.r.n. for panic -reviewed labs with patient; LFTs mildly elevated trending down; elevated triglycerides. Patient says will talk with outpatient provider about this Patient educated on: diagnosis, medication risk/benefits and substance abuse Informed Consent: understands Reason for continued inpatient stay Substantial Risk for: rapid decompensation Statement Statement: I have reviewed the history and physical and performed a pertinent examination on my patient. No changes have occurred unless specified. If the History and Physical was not performed prior to admission, the Hospitalist's service will be consulted for completing the admission physical. Time Spent With Patient Time: Total time managing care of this patient today ____ minutes.
[2024-03-23 11:10] LABS: Folate 13.9 ng/mL (> or = 4.0); Vitamin B12 526 pg/mL (200-900)
[2024-03-23] MEDS: Acetaminophen 325 MG TABLET 650 MG PO (12:43)
--- NOTE | 2024-03-23 13:20 | PM.EVENT ---
Event Note Date of Service: 03/23/24 Event Note: Addiciton consult placed for patient with AUD admitted to unit for SI Patient was seen by light rail vehicle operator during medical admission Patient will need an appt scheduled with [facility] prior to discharge from Time Spent With Patient Time: Total time managing care of this patient today ____ minutes.
[2024-03-23] MEDS: Sertraline HCL 25 MG TABLET PO (13:27)
[2024-03-23 20:00] VITALS: BP 136/92; PULSE 89; RESP 16; TEMP 36.7; O2SAT 92
[2024-03-23 20:21] VITALS: BP 136/92
[2024-03-23] MEDS: cloNIDine HCL 0.1 MG TABLET PO (20:21)
[2024-03-23] MEDS: traZODone HCL 50 MG TABLET PO (20:22)
[2024-03-24 08:00] VITALS: BP 116/68; PULSE 82; RESP 17; TEMP 36.8; O2SAT 100
[2024-03-24] MEDS: Thiamine HCL 100 MG TABLET PO (08:55)
[2024-03-24] MEDS: PHENobarbitaL 15 MG TABLET PO ×2 (08:55→21:03)
[2024-03-24] MEDS: Folic Acid 1 MG TABLET PO (08:55)
[2024-03-24] MEDS: Sertraline HCL 25 MG TABLET 75 MG PO (08:56)
[2024-03-24] MEDS: hydrOXYzine HCL 25 MG TABLET PO (09:02)
--- NOTE | 2024-03-24 18:03 | HO.PSYCHPN ---
Subjective Subjective Date of Service: 03/24/24 Reason For Visit: alcohol use disorder, major depression, recurrent Interim History: met with pt; discussed with team pt slept well enough, though it took over an hour following trazodone discussed anxiety more and seems that pt has OLIVER, worries about various things about next day, doing well, if certain things will happen....discussed fears of failure and pressure from mother, family. Discussed after care, CSS vs AA meetings and pt currently wants to go to program. Mental Status Exam Mental Status Exam Narrative: Pt is alert and oriented; behavior is cooperative, friendly, tearful; patient is not in distress; dressed in casual attire with unkempt hair but adequate hygiene; mood is described as better; anxious and affect congruent, anxious, emotional; eye contact appropriate; Speech is normal rate, volume and prosody and not pressured; no psychomotor agitation/retardation present; thought process is organized and goal directed; Thought content is on tx, struggling with self-deprecating thoughts; otherwise pertinent to relevant topics and without any delusional content, paranoid ideations or grandiosity; denies any SI/HI. There is no evidence of perceptual disturbance. Patients insight and judgment fair. Diagnostics Vital Signs (24Hr): Vital Signs - 24 hr 03/23/24 20:00 03/23/24 20:21 03/24/24 08:00 Temperature 98.1 F 98.2 F Pulse Rate 89 82 Respiratory Rate 16 17 Blood Pressure 136/92 H 136/92 H 116/68 Pulse Oximetry 92 100 Oxygen Delivery Method Room Air Room Air BMI result Body Mass Index 26.0 Labs Labs: Laboratory Results - last 48 hr 03/23/24 03/23/24 08:54 08:55 Estimat Average Glucose 100 Hemoglobin A1c % 5.1 Magnesium 1.8 Triglycerides 217 H Cholesterol 204 H LDL Cholesterol, Calc 94 HDL Cholesterol 67 Vitamin B12 526 Folate 13.9 TSH 0.95 Free T4 0.79 Medications Medications Current Medications Acetaminophen (Acetaminophen 325 Mg Tablet) 650 mg PO Q4H PRN PRN Reason: Pain, Mild (Pain Scale 1-3) Last Admin: 03/23/24 12:43 Dose: 650 mg Al Hydroxide/Mg Hydroxide (Magnesium Hydrox/Alum Hydrox 30 Ml Oral.Susp) 30 ml PO Q6H PRN PRN Reason: Heartburn/Nausea Clonidine HCl (Clonidine Hcl 0.1 Mg Tablet) 0.1 mg PO Q4H PRN; Protocol PRN Reason: moderate anxiety Clonidine HCl (Clonidine Hcl 0.1 Mg Tablet) 0.1 mg PO BEDTIME ERICKA; Protocol Last Admin: 03/23/24 20:21 Dose: 0.1 mg Folic Acid (Folic Acid 1 Mg Tablet) 1 mg PO DAILY ERICKA Last Admin: 03/24/24 08:55 Dose: 1 mg Hydroxyzine HCl (Hydroxyzine Hcl 25 Mg Tablet) 25 mg PO Q6H PRN PRN Reason: Anxiety Last Admin: 03/24/24 09:02 Dose: 25 mg Magnesium Hydroxide (Milk Of Magnesia 30 Ml Oral.Susp) 30 ml PO DAILY PRN PRN Reason: Constipation Nicotine (Nicotine 21 Mg Patch.Td24) 21 mg TRANSDERMA DAILY PRN PRN Reason: Nicotine Cravings Nicotine Polacrilex (Nicotine Polacrilex 2 Mg Gum) 4 mg BUCCAL Q2H PRN PRN Reason: Nicotine Cravings Phenobarbital (Phenobarbital 15 Mg Tablet) 15 mg PO BID [facility] Stop: 03/24/24 21:05 Last Admin: 03/24/24 08:55 Dose: 15 mg Phenobarbital (Phenobarbital 15 Mg Tablet) 15 mg PO DAILY ERICKA Stop: 03/26/24 09:05 Sertraline HCl (Sertraline Hcl 25 Mg Tablet) 75 mg PO DAILY [facility] Last Admin: 03/24/24 08:56 Dose: 75 mg Thiamine HCl (Thiamine Hcl 100 Mg Tablet) 100 mg PO DAILY ERICKA Last Admin: 03/24/24 08:55 Dose: 100 mg Trazodone HCl (Trazodone Hcl 100 Mg Tablet) 100 mg PO BEDTIME ERICKA Trazodone HCl (Trazodone Hcl 50 Mg Tablet) 50 mg PO BEDTIME PRN PRN Reason: continued insomnia Allergies Allergies Allergy/AdvReac Type Severity Reaction Status Date / Time cheese AdvReac Diarrhea Verified 03/20/24 18:16 Assessment & Plan Assessment & Plan (1) MDD (major depressive disorder), recurrent episode, severe: Status: Acute Code(s): F33.2 - Major depressive disorder, recurrent severe without psychotic features (2) Panic disorder: Status: Acute Code(s): F41.0 - Panic disorder [episodic paroxysmal anxiety] (3) Alcohol use disorder, severe, dependence: Status: Acute Code(s): F10.20 - Alcohol dependence, uncomplicated Plan Patient is a 33 male, employed full-time, with history of depression, anxiety, panic and alcohol abuse/dependence who presents for worsening anxiety in the face of chronic alcoholism limited psychiatric treatment; currently on phenobarbital taper. Patient says he has resisted treatment for a long time however he is losing so many things in his life due to his anxiety, depression and subsequent severe alcohol addiction that he is finally willing to get help. Patient denies any SI at all, saying that he did tell the nurse I do not want to be here again but that was misinterpreted and that he only meant to say he does not want to be locked in this cycle of addiction and in a hopeless mind set. Patient reports that depression started in his early teenage years which worsened after his parents ; anxiety started in his 20s and soon after he started drinking alcohol which became daily and severe. Patient has episodes of severe depression that can last for several weeks during which he has most neurovegetative symptoms of depression; has severe panic attacks, up to 3 a week which are overwhelming and with an impending sense of doom; while he finds alcohol temporarily relieves his symptoms, he hates what alcohol addiction is doing to his life. Over the last 6 months he has tried to cut down and over the past 2 weeks he has been able to keep himself and drinking except for 3 specific days where he binged heavily. Patient tried to deal with withdrawal symptoms on his own however became tremulous diaphoretic, nauseous and so came to the hospital for treatment. Patient denies any history of SI or SA; denies any history of manic type behaviors or episodes; no AVH. Patient agrees with medication treatment and therapy. Formulation/clinical reason: Patient decades long history of depression and anxiety; unfortunately he never sought psychiatric help and instead turned to alcohol which has now become an equally debilitating problem. Patient however presents as very eager to become sober and get treatment for both depression and anxiety. Agrees to continue with Zoloft and to titrate. Also will try clonidine to help with insomnia. Wants therapy and wants help with sobriety post discharge. -rule out OLIVER hosptial course: 03/24 improving; tolerating meds; w/drawal symptoms waning; likely OLIVER but will further explore. Will likely further titrate zoloft -asks for trazodone to be increased (reviewed risks/side-effects) PLAN CV q15 Continue phenobarb taper.... Increase Zoloft to 75 mg daily Add clonidine 0.1 mg q.h.s. for chronic insomnia Continue trazodone 100mg p.r.n. Ativan 1 mg daily p.r.n. for panic -reviewed labs with patient; LFTs mildly elevated trending down; elevated triglycerides. Patient says will talk with outpatient provider about this Patient educated on: diagnosis, medication risk/benefits, substance abuse and therapeutic strategies Informed Consent: understands Reason for continued inpatient stay Substantial Risk for: rapid decompensation Time Spent With Patient Time: Total time managing care of this patient today ____ minutes.
[2024-03-24 20:00] VITALS: BP 132/88; PULSE 104; RESP 16; TEMP 36.7; O2SAT 98
[2024-03-24 21:02] VITALS: BP 133/88
[2024-03-24] MEDS: cloNIDine HCL 0.1 MG TABLET PO (21:02)
[2024-03-24] MEDS: Acetaminophen 325 MG TABLET 650 MG PO (21:03)
[2024-03-24] MEDS: traZODone HCL 100 MG TABLET PO (21:03)
[2024-03-25 08:27] VITALS: BP 120/60; PULSE 88; RESP 18; TEMP 36.9; O2SAT 100
[2024-03-25] MEDS: Acetaminophen 325 MG TABLET 650 MG PO ×2 (08:30→20:50)
[2024-03-25] MEDS: cloNIDine HCL 0.1 MG TABLET PO ×2 (08:31→20:52)
[2024-03-25] MEDS: Thiamine HCL 100 MG TABLET PO (08:31)
[2024-03-25] MEDS: PHENobarbitaL 15 MG TABLET PO (08:32)
[2024-03-25] MEDS: Folic Acid 1 MG TABLET PO (08:32)
[2024-03-25] MEDS: Sertraline HCL 25 MG TABLET 75 MG PO (08:32)
--- NOTE | 2024-03-25 11:42 | P.PNPSI_ITS ---
Subjective Subjective Date of Service: 03/25/24 Reason For Visit: alcohol use disorder, major depression, recurrent Interim History: Met with patient; discussed with team Overall doing better. Still very anxious but finds clonidine as a p.r.n. very helpful and though was exceedingly anxious about meeting with his mother today, felt that clonidine helped him relax and actually enjoy interaction. Depression remains but improving. Still struggling with sleep and did not fall asleep for quite a while despite trazodone. Also finds trazodone makes him groggy and causes headache. Asks to go back to hydroxyzine which he had taken in the past, up to 200 mg q.h.s.; agrees to start with 100 mg for now. Agrees to titrate Zoloft further but will give it another day or so. Discussed at length, patient's anxiety, struggles with fears of failure, plans for sobriety, relationship with his mother. Patient very eager to continue treatment as an outpatient and wants to go to a [facility] Patient remains in good behavioral and impulse control. Invested in treatment, going to all groups, forthcoming in 1 on 1 sessions. Patient is appropriate with peers and staff. Mental Status Exam Mental Status Exam Narrative: Pt is alert and oriented; behavior is cooperative, friendly, calm; patient is not in distress; dressed in casual attire, scruffy facial hair but adequate hygiene; mood is described as better and affect congruent, still somewhat anxious but less so; eye contact appropriate; Speech is normal rate, volume and prosody and not pressured; no psychomotor agitation/retardation present; thought process is organized and goal directed; Thought content is on tx, aftercare, overcoming struggles; otherwise pertinent to relevant topics and without any delusional content, paranoid ideations or grandiosity; denies any SI/HI. There is no evidence of perceptual disturbance. Patients insight and judgment fair. Diagnostics Vital Signs (24Hr): Vital Signs - 24 hr 03/24/24 20:00 03/24/24 21:02 03/25/24 08:27 Temperature 98.1 F 98.4 F Pulse Rate 104 H 88 Respiratory Rate 16 18 Blood Pressure 132/88 133/88 120/60 Pulse Oximetry 98 100 Oxygen Delivery Method Room Air Room Air BMI result Body Mass Index 26.0 Medications Medications Current Medications Acetaminophen (Acetaminophen 325 Mg Tablet) 650 mg PO Q4H PRN PRN Reason: Pain, Mild (Pain Scale 1-3) Last Admin: 03/25/24 08:30 Dose: 650 mg Al Hydroxide/Mg Hydroxide (Magnesium Hydrox/Alum Hydrox 30 Ml Oral.Susp) 30 ml PO Q6H PRN PRN Reason: Heartburn/Nausea Clonidine HCl (Clonidine Hcl 0.1 Mg Tablet) 0.1 mg PO Q4H PRN; Protocol PRN Reason: moderate anxiety Last Admin: 03/25/24 08:31 Dose: 0.1 mg Clonidine HCl (Clonidine Hcl 0.1 Mg Tablet) 0.1 mg PO BEDTIME ERICKA; Protocol Last Admin: 03/24/24 21:02 Dose: 0.1 mg Folic Acid (Folic Acid 1 Mg Tablet) 1 mg PO DAILY ERICKA Last Admin: 03/25/24 08:32 Dose: 1 mg Hydroxyzine HCl (Hydroxyzine Hcl 25 Mg Tablet) 25 mg PO Q6H PRN PRN Reason: Anxiety Last Admin: 03/24/24 09:02 Dose: 25 mg Magnesium Hydroxide (Milk Of Magnesia 30 Ml Oral.Susp) 30 ml PO DAILY PRN PRN Reason: Constipation Nicotine (Nicotine 21 Mg Patch.Td24) 21 mg TRANSDERMA DAILY PRN PRN Reason: Nicotine Cravings Nicotine Polacrilex (Nicotine Polacrilex 2 Mg Gum) 4 mg BUCCAL Q2H PRN PRN Reason: Nicotine Cravings Phenobarbital (Phenobarbital 15 Mg Tablet) 15 mg PO DAILY [facility] Stop: 03/26/24 09:05 Last Admin: 03/25/24 08:32 Dose: 15 mg Sertraline HCl (Sertraline Hcl 25 Mg Tablet) 75 mg PO DAILY ERICKA Last Admin: 03/25/24 08:32 Dose: 75 mg Thiamine HCl (Thiamine Hcl 100 Mg Tablet) 100 mg PO DAILY ERICKA Last Admin: 03/25/24 08:31 Dose: 100 mg Trazodone HCl (Trazodone Hcl 100 Mg Tablet) 100 mg PO BEDTIME ERICKA Last Admin: 03/24/24 21:03 Dose: 100 mg Trazodone HCl (Trazodone Hcl 50 Mg Tablet) 50 mg PO BEDTIME PRN PRN Reason: continued insomnia Allergies Allergies Allergy/AdvReac Type Severity Reaction Status Date / Time cheese AdvReac Diarrhea Verified 03/20/24 18:16 Assessment & Plan Assessment & Plan (1) MDD (major depressive disorder), recurrent episode, severe: Status: Acute Code(s): F33.2 - Major depressive disorder, recurrent severe without psychotic features (2) Panic disorder: Status: Acute Code(s): F41.0 - Panic disorder [episodic paroxysmal anxiety] (3) Alcohol use disorder, severe, dependence: Status: Acute Code(s): F10.20 - Alcohol dependence, uncomplicated Plan Patient is a 33 male, employed full-time, with history of depression, anxiety, panic and alcohol abuse/dependence who presents for worsening anxiety in the face of chronic alcoholism limited psychiatric treatment; currently on phenobarbital taper. Patient says he has resisted treatment for a long time however he is losing so many things in his life due to his anxiety, depression and subsequent severe alcohol addiction that he is finally willing to get help. Patient denies any SI at all, saying that he did tell the nurse I do not want to be here again but that was misinterpreted and that he only meant to say he does not want to be locked in this cycle of addiction and in a hopeless mind set. Patient reports that depression started in his early teenage years which worsened after his parents ; anxiety started in his 20s and soon after he started drinking alcohol which became daily and severe. Patient has episodes of severe depression that can last for several weeks during which he has most neurovegetative symptoms of depression; has severe panic attacks, up to 3 a week which are overwhelming and with an impending sense of doom; while he finds alcohol temporarily relieves his symptoms, he hates what alcohol addiction is doing to his life. Over the last 6 months he has tried to cut down and over the past 2 weeks he has been able to keep himself and drinking except for 3 specific days where he binged heavily. Patient tried to deal with withdrawal symptoms on his own however became tremulous diaphoretic, nauseous and so came to the hospital for treatment. Patient denies any history of SI or SA; denies any history of manic type behaviors or episodes; no AVH. Patient agrees with medication treatment and therapy. Formulation/clinical reason: Patient decades long history of depression and anxiety; unfortunately he never sought psychiatric help and instead turned to alcohol which has now become an equally debilitating problem. Patient however presents as very eager to become sober and get treatment for both depression and anxiety. Agrees to continue with Zoloft and to titrate. Also will try clonidine to help with insomnia. Wants therapy and wants help with sobriety post discharge. -rule out OLIVER hosptial course: 03/24 improving; tolerating meds; w/drawal symptoms waning; likely OLIVER but will further explore. Will likely further titrate zoloft -asks for trazodone to be increased (reviewed risks/side-effects) 03/25 Overall doing better. Still very anxious but finds clonidine as a p.r.n. very helpful and though was exceedingly anxious about meeting with his mother today, felt that clonidine helped him relax and actually enjoy interaction. Depression remains but improving. Still struggling with sleep and did not fall asleep for quite a while despite trazodone. Also finds trazodone makes him groggy and causes headache. Asks to go back to hydroxyzine which he had taken in the past, up to 200 mg q.h.s.; agrees to start with 100 mg for now. Agrees to titrate Zoloft further but will give it another day or so. Discussed at length, patient's anxiety, struggles with fears of failure, plans for sobriety, relationship with his mother. Patient very eager to continue treatment as an outpatient and wants to go to a [facility] Patient remains in good behavioral and impulse control. Invested in treatment, going to all groups, forthcoming in 1 on 1 sessions. Patient is appropriate with peers and staff. PLAN CV q15 Continue phenobarb taper.... Increase Zoloft to 75 mg daily continue clonidine 0.1 mg q.h.s. for chronic insomnia Continue clonidine 0.1 mg Q 4 p.r.n. for anxiety Add hydroxyzine 100 mg q.h.s. with 50 mg p.r.n. for insomnia (patient reports has been on 200 mg q.h.s. before) Discontinue trazodone Ativan 1 mg daily p.r.n. for panic -reviewed labs with patient; LFTs mildly elevated trending down; elevated triglycerides. Patient says will talk with outpatient provider about this Patient educated on: diagnosis, medication risk/benefits, substance abuse and therapeutic strategies Informed Consent: understands Reason for continued inpatient stay Substantial Risk for: stable for discharge Time Spent With Patient Time: Total time managing care of this patient today ____ minutes.
[2024-03-25 20:00] VITALS: BP 116/64; PULSE 85; TEMP 36.9; O2SAT 98
[2024-03-25 20:52] VITALS: BP 116/64
[2024-03-25] MEDS: hydrOXYzine HCL 50 MG TABLET 100 MG PO (20:52)
[2024-03-26 08:00] VITALS: BP 122/70; PULSE 110; RESP 18; TEMP 36.7; O2SAT 97
[2024-03-26] MEDS: Thiamine HCL 100 MG TABLET PO (08:32)
[2024-03-26] MEDS: cloNIDine HCL 0.1 MG TABLET PO ×3 (08:33→20:45)
[2024-03-26] MEDS: Folic Acid 1 MG TABLET PO (08:33)
[2024-03-26] MEDS: Sertraline HCL 25 MG TABLET 75 MG PO (08:33)
[2024-03-26] MEDS: PHENobarbitaL 15 MG TABLET PO (08:33)
[2024-03-26] MEDS: Acetaminophen 325 MG TABLET 650 MG PO (08:41)
--- NOTE | 2024-03-26 11:15 | P.PNPSI_ITS ---
Subjective Subjective Date of Service: 03/26/24 Reason For Visit: alcohol use disorder, major depression, recurrent Interim History: Met with patient; discussed with team Patient reports that he is overall feeling better. Slept well with the Vistaril. Agrees to increasing Zoloft to 100. Continue to discuss history, relationships, struggles. Patient remains very focused on substance abuse treatment and pursuing sobriety. Discussed milieu acuity and his struggles coping with it but patient excited to realize that practicing remaining calmness, avoiding impulsivity on the unit is strengthening a skill that will help him remain sober. Mental Status Exam Mental Status Exam Narrative: Pt is alert and oriented; behavior is cooperative, friendly, calm; patient is not in distress; dressed in casual attire, scruffy facial hair but adequate hygiene; mood is described as better and affect congruent, still somewhat anxious but less so; eye contact appropriate; Speech is normal rate, volume and prosody and not pressured; no psychomotor agitation/retardation present; thought process is organized and goal directed; Thought content is on tx, aftercare, overcoming struggles; otherwise pertinent to relevant topics and without any delusional content, paranoid ideations or grandiosity; denies any SI/HI. There is no evidence of perceptual disturbance. Patients insight and judgment fair. Diagnostics Vital Signs (24Hr): Vital Signs - 24 hr 03/25/24 20:00 03/25/24 20:52 03/26/24 08:00 Temperature 98.4 F 98.1 F Pulse Rate 85 110 H Respiratory Rate 18 Blood Pressure 116/64 116/64 122/70 Pulse Oximetry 98 97 Oxygen Delivery Method Room Air Room Air BMI result Body Mass Index 26.0 Medications Medications Current Medications Acetaminophen (Acetaminophen 325 Mg Tablet) 650 mg PO Q4H PRN PRN Reason: Pain, Mild (Pain Scale 1-3) Last Admin: 03/26/24 08:41 Dose: 650 mg Al Hydroxide/Mg Hydroxide (Magnesium Hydrox/Alum Hydrox 30 Ml Oral.Susp) 30 ml PO Q6H PRN PRN Reason: Heartburn/Nausea Clonidine HCl (Clonidine Hcl 0.1 Mg Tablet) 0.1 mg PO Q4H PRN; Protocol PRN Reason: moderate anxiety Last Admin: 03/26/24 08:33 Dose: 0.1 mg Clonidine HCl (Clonidine Hcl 0.1 Mg Tablet) 0.1 mg PO BEDTIME ERICKA; Protocol Last Admin: 03/25/24 20:52 Dose: 0.1 mg Folic Acid (Folic Acid 1 Mg Tablet) 1 mg PO DAILY [facility] Last Admin: 03/26/24 08:33 Dose: 1 mg Hydroxyzine HCl (Hydroxyzine Hcl 25 Mg Tablet) 25 mg PO Q6H PRN PRN Reason: Anxiety Last Admin: 03/24/24 09:02 Dose: 25 mg Hydroxyzine HCl (Hydroxyzine Hcl 50 Mg Tablet) 100 mg PO BEDTIME ERICKA Last Admin: 03/25/24 20:52 Dose: 100 mg Hydroxyzine HCl (Hydroxyzine Hcl 50 Mg Tablet) 50 mg PO BEDTIME PRN PRN Reason: continued insomnia Magnesium Hydroxide (Milk Of Magnesia 30 Ml Oral.Susp) 30 ml PO DAILY PRN PRN Reason: Constipation Nicotine (Nicotine 21 Mg Patch.Td24) 21 mg TRANSDERMA DAILY PRN PRN Reason: Nicotine Cravings Nicotine Polacrilex (Nicotine Polacrilex 2 Mg Gum) 4 mg BUCCAL Q2H PRN PRN Reason: Nicotine Cravings Sertraline HCl (Sertraline Hcl 25 Mg Tablet) 75 mg PO DAILY [facility] Last Admin: 03/26/24 08:33 Dose: 75 mg Thiamine HCl (Thiamine Hcl 100 Mg Tablet) 100 mg PO DAILY [facility] Last Admin: 03/26/24 08:32 Dose: 100 mg Allergies Allergies Allergy/AdvReac Type Severity Reaction Status Date / Time cheese AdvReac Diarrhea Verified 03/20/24 18:16 Assessment & Plan Assessment & Plan (1) MDD (major depressive disorder), recurrent episode, severe: Status: Acute Code(s): F33.2 - Major depressive disorder, recurrent severe without psychotic features (2) Panic disorder: Status: Acute Code(s): F41.0 - Panic disorder [episodic paroxysmal anxiety] (3) Alcohol use disorder, severe, dependence: Status: Acute Code(s): F10.20 - Alcohol dependence, uncomplicated Plan Patient is a 33 male, employed full-time, with history of depression, anxiety, panic and alcohol abuse/dependence who presents for worsening anxiety in the face of chronic alcoholism limited psychiatric treatment; currently on phenobarbital taper. Patient says he has resisted treatment for a long time however he is losing so many things in his life due to his anxiety, depression and subsequent severe alcohol addiction that he is finally willing to get help. Patient denies any SI at all, saying that he did tell the nurse I do not want to be here again but that was misinterpreted and that he only meant to say he does not want to be locked in this cycle of addiction and in a hopeless mind set. Patient reports that depression started in his early teenage years which worsened after his parents ; anxiety started in his 20s and soon after he started drinking alcohol which became daily and severe. Patient has episodes of severe depression that can last for several weeks during which he has most neurovegetative symptoms of depression; has severe panic attacks, up to 3 a week which are overwhelming and with an impending sense of doom; while he finds alcohol temporarily relieves his symptoms, he hates what alcohol addiction is doing to his life. Over the last 6 months he has tried to cut down and over the past 2 weeks he has been able to keep himself and drinking except for 3 specific days where he binged heavily. Patient tried to deal with withdrawal symptoms on his own however became tremulous diaphoretic, nauseous and so came to the hospital for treatment. Patient denies any history of SI or SA; denies any history of manic type behaviors or episodes; no AVH. Patient agrees with medication treatment and therapy. Formulation/clinical reason: Patient decades long history of depression and anxiety; unfortunately he never sought psychiatric help and instead turned to alcohol which has now become an equally debilitating problem. Patient however presents as very eager to become sober and get treatment for both depression and anxiety. Agrees to continue with Zoloft and to titrate. Also will try clonidine to help with insomnia. Wants therapy and wants help with sobriety post discharge. -rule out [facility] course: 03/24 improving; tolerating meds; w/drawal symptoms waning; likely [facility] but will further explore. Will likely further titrate zoloft -asks for trazodone to be increased (reviewed risks/side-effects) 03/25 Overall doing better. Still very anxious but finds clonidine as a p.r.n. very helpful and though was exceedingly anxious about meeting with his mother chung srinivasan, felt that clonidine helped him relax and actually enjoy interaction. Depression remains but improving. Still struggling with sleep and did not fall asleep for quite a while despite trazodone. Also finds trazodone makes him groggy and causes headache. Asks to go back to hydroxyzine which he had taken in the past, up to 200 mg q.h.s.; agrees to start with 100 mg for now. Agrees to titrate Zoloft further but will give it another day or so. Discussed at length, patient's anxiety, struggles with fears of failure, plans for sobriety, relationship with his mother. Patient very eager to continue treatment as an outpatient and wants to go to a [facility] 03/26 Doing better; practicing coping skills; discussing treatment and engaged in therapeutic exercises; very willing to be self aware and introspection. Remains very focused on aftercare and pursuing sobriety. Patient is stable on current medication regimen Patient remains in good behavioral and impulse control. Invested in treatment, going to all groups, forthcoming in 1 on 1 sessions. Patient is appropriate with peers and staff. PLAN CV q15 Continue phenobarb taper.... Will increase to Zoloft to 100 mg daily continue clonidine 0.1 mg q.h.s. for chronic insomnia Continue clonidine 0.1 mg Q 4 p.r.n. for anxiety Continue hydroxyzine 100 mg q.h.s. with 50 mg p.r.n. for insomnia (patient reports has been on 200 mg q.h.s. before) Discontinue trazodone Ativan 1 mg daily p.r.n. for panic -reviewed labs with patient; LFTs mildly elevated trending down; elevated triglycerides. Patient says will talk with outpatient provider about this Patient educated on: diagnosis, medication risk/benefits, substance abuse and therapeutic strategies Informed Consent: understands Reason for continued inpatient stay Substantial Risk for: stable for discharge Time Spent With Patient Time: Total time managing care of this patient today ____ minutes.
[2024-03-26 13:57] VITALS: BP 122/70
[2024-03-26] MEDS: Ibuprofen 600 MG TABLET PO (14:17)
[2024-03-26 20:00] VITALS: BP 109/63; PULSE 75; RESP 15; TEMP 36.4; O2SAT 98
[2024-03-26] MEDS: hydrOXYzine HCL 50 MG TABLET PO (20:45)
[2024-03-26] MEDS: hydrOXYzine HCL 50 MG TABLET 100 MG PO (20:45)
[2024-03-27 08:00] VITALS: BP 124/76; PULSE 97; RESP 18; TEMP 36.1; O2SAT 99
[2024-03-27] MEDS: Thiamine HCL 100 MG TABLET PO (08:39)
[2024-03-27] MEDS: Sertraline HCL 100 MG TABLET PO (08:39)
[2024-03-27] MEDS: Folic Acid 1 MG TABLET PO (08:39)
--- NOTE | 2024-03-27 09:17 | P.PNPSI_ITS ---
Subjective Subjective Date of Service: 03/27/24 Reason For Visit: alcohol use disorder, major depression, recurrent Interim History: Met with patient; discussed with team Patient reports sleeping well. Depression much better and he remains optimistic, very much wanting to get into an outpatient program for help with addiction. Patient says he is spending more time in his room given the acuity on the unit. Discussed alternative options if program not available. Tolerating medications well Mental Status Exam Mental Status Exam Narrative: Pt is alert and oriented; behavior is cooperative, friendly, calm; patient is not in distress; dressed in casual attire, scruffy facial hair but adequate hygiene; mood is described as better and affect congruent, still somewhat anxious but less so; eye contact appropriate; Speech is normal rate, volume and prosody and not pressured; no psychomotor agitation/retardation present; thought process is organized and goal directed; Thought content is on tx, aftercare, overcoming struggles; otherwise pertinent to relevant topics and without any delusional content, paranoid ideations or grandiosity; denies any SI/HI. There is no evidence of perceptual disturbance. Patients insight and judgment fair. Diagnostics Vital Signs (24Hr): Vital Signs - 24 hr 03/26/24 13:57 03/26/24 20:00 03/27/24 08:00 Temperature 97.5 F 96.9 F Pulse Rate 75 97 Respiratory Rate 15 18 Blood Pressure 122/70 109/63 124/76 Pulse Oximetry 98 99 Oxygen Delivery Method Room Air BMI result Body Mass Index 26.0 Medications Medications Current Medications Acetaminophen (Acetaminophen 325 Mg Tablet) 650 mg PO Q4H PRN PRN Reason: Pain, Mild (Pain Scale 1-3) Last Admin: 03/26/24 08:41 Dose: 650 mg Al Hydroxide/Mg Hydroxide (Magnesium Hydrox/Alum Hydrox 30 Ml Oral.Susp) 30 ml PO Q6H PRN PRN Reason: Heartburn/Nausea Clonidine HCl (Clonidine Hcl 0.1 Mg Tablet) 0.1 mg PO Q4H PRN; Protocol PRN Reason: moderate anxiety Last Admin: 03/26/24 13:57 Dose: 0.1 mg Clonidine HCl (Clonidine Hcl 0.1 Mg Tablet) 0.1 mg PO BEDTIME ERICKA; Protocol Last Admin: 03/26/24 20:45 Dose: 0.1 mg Folic Acid (Folic Acid 1 Mg Tablet) 1 mg PO DAILY [facility] Last Admin: 03/27/24 08:39 Dose: 1 mg Hydroxyzine HCl (Hydroxyzine Hcl 25 Mg Tablet) 25 mg PO Q6H PRN PRN Reason: Anxiety Last Admin: 03/24/24 09:02 Dose: 25 mg Hydroxyzine HCl (Hydroxyzine Hcl 50 Mg Tablet) 100 mg PO BEDTIME ERICKA Last Admin: 03/26/24 20:45 Dose: 100 mg Hydroxyzine HCl (Hydroxyzine Hcl 50 Mg Tablet) 50 mg PO BEDTIME PRN PRN Reason: continued insomnia Last Admin: 03/26/24 20:45 Dose: 50 mg Ibuprofen (Ibuprofen 600 Mg Tablet) 600 mg PO Q8H PRN PRN Reason: Pain, Mild (Pain Scale 1-3) Last Admin: 03/26/24 14:17 Dose: 600 mg Magnesium Hydroxide (Milk Of Magnesia 30 Ml Oral.Susp) 30 ml PO DAILY PRN PRN Reason: Constipation Nicotine (Nicotine 21 Mg Patch.Td24) 21 mg TRANSDERMA DAILY PRN PRN Reason: Nicotine Cravings Nicotine Polacrilex (Nicotine Polacrilex 2 Mg Gum) 4 mg BUCCAL Q2H PRN PRN Reason: Nicotine Cravings Sertraline HCl (Sertraline Hcl 100 Mg Tablet) 100 mg PO DAILY [facility] Last Admin: 03/27/24 08:39 Dose: 100 mg Thiamine HCl (Thiamine Hcl 100 Mg Tablet) 100 mg PO DAILY [facility] Last Admin: 03/27/24 08:39 Dose: 100 mg Allergies Allergies Allergy/AdvReac Type Severity Reaction Status Date / Time No Known Allergies Allergy Verified 03/26/24 14:06 Assessment & Plan Assessment & Plan (1) MDD (major depressive disorder), recurrent episode, severe: Status: Acute Code(s): F33.2 - Major depressive disorder, recurrent severe without psychotic features (2) Panic disorder: Status: Acute Code(s): F41.0 - Panic disorder [episodic paroxysmal anxiety] (3) Alcohol use disorder, severe, dependence: Status: Acute Code(s): F10.20 - Alcohol dependence, uncomplicated Plan Patient is a 33 male, employed full-time, with history of depression, anxiety, panic and alcohol abuse/dependence who presents for worsening anxiety in the face of chronic alcoholism limited psychiatric treatment; currently on phenobarbital taper. Patient says he has resisted treatment for a long time however he is losing so many things in his life due to his anxiety, depression and subsequent severe alcohol addiction that he is finally willing to get help. Patient denies any SI at all, saying that he did tell the nurse I do not want to be here again but that was misinterpreted and that he only meant to say he does not want to be locked in this cycle of addiction and in a hopeless mind set. Patient reports that depression started in his early teenage years which worsened after his parents ; anxiety started in his 20s and soon after he started drinking alcohol which became daily and severe. Patient has episodes of severe depression that can last for several weeks during which he has most neurovegetative symptoms of depression; has severe panic attacks, up to 3 a week which are overwhelming and with an impending sense of doom; while he finds alcohol temporarily relieves his symptoms, he hates what alcohol addiction is doing to his life. Over the last 6 months he has tried to cut down and over the past 2 weeks he has been able to keep himself and drinking except for 3 specific days where he binged heavily. Patient tried to deal with withdrawal symptoms on his own however became tremulous diaphoretic, nauseous and so came to the hospital for treatment. Patient denies any history of SI or SA; denies any history of manic type behaviors or episodes; no AVH. Patient agrees with medication treatment and therapy. Formulation/clinical reason: Patient decades long history of depression and anxiety; unfortunately he never sought psychiatric help and instead turned to alcohol which has now become an equally debilitating problem. Patient however presents as very eager to become sober and get treatment for both depression and anxiety. Agrees to continue with Zoloft and to titrate. Also will try clonidine to help with insomnia. Wants therapy and wants help with sobriety post discharge. -rule out [facility] course: 03/24 improving; tolerating meds; w/drawal symptoms waning; likely [facility] but will further explore. Will likely further titrate zoloft -asks for trazodone to be increased (reviewed risks/side-effects) 03/25 Overall doing better. Still very anxious but finds clonidine as a p.r.n. very helpful and though was exceedingly anxious about meeting with his mother today, felt that clonidine helped him relax and actually enjoy interaction. Depression remains but improving. Still struggling with sleep and did not fall asleep for quite a while despite trazodone. Also finds trazodone makes him groggy and causes headache. Asks to go back to hydroxyzine which he had taken in the past, up to 200 mg q.h.s.; agrees to start with 100 mg for now. Agrees to titrate Zoloft further but will give it another day or so. Discussed at length, patient's anxiety, struggles with fears of failure, plans for sobriety, relationship with his mother. Patient very eager to continue treatment as an outpatient and wants to go to a [facility] 03/26Doing better; practicing coping skills; discussing treatment and engaged in therapeutic exercises; very willing to be self aware and introspection. Remains very focused on aftercare and pursuing sobriety. 03/27 remains much improved, depression dissipated; anxiety under control. Patient using coping skills and working on avoiding taking PRNs. Hoping for program Patient is stable on current medication regimen Patient remains in good behavioral and impulse control. Invested in treatment, going to all groups, forthcoming in 1 on 1 sessions. Patient is appropriate with peers and staff. PLAN CV q15 Continue phenobarb taper.... Will increase to Zoloft to 100 mg daily continue clonidine 0.1 mg q.h.s. for chronic insomnia Continue clonidine 0.1 mg Q 4 p.r.n. for anxiety Continue hydroxyzine 100 mg q.h.s. with 50 mg p.r.n. for insomnia (patient reports has been on 200 mg q.h.s. before) Discontinue trazodone Ativan 1 mg daily p.r.n. for panic -reviewed labs with patient; LFTs mildly elevated trending down; elevated triglycerides. Patient says will talk with outpatient provider about this Patient educated on: diagnosis, medication risk/benefits, substance abuse and therapeutic strategies Informed Consent: understands Reason for continued inpatient stay Substantial Risk for: stable for discharge Time Spent With Patient Time: Total time managing care of this patient today ____ minutes.
[2024-03-27 20:00] VITALS: BP 142/74; PULSE 87; TEMP 36.3; O2SAT 97
[2024-03-27 20:44] VITALS: BP 142/74
[2024-03-27] MEDS: cloNIDine HCL 0.1 MG TABLET PO (20:44)
[2024-03-27] MEDS: hydrOXYzine HCL 50 MG TABLET 100 MG PO (20:44)
[2024-03-27] MEDS: hydrOXYzine HCL 50 MG TABLET PO (20:47)
[2024-03-28 08:00] VITALS: BP 113/63; PULSE 72; RESP 18; TEMP 36.6; O2SAT 99
[2024-03-28] MEDS: Sertraline HCL 100 MG TABLET PO (08:28)
[2024-03-28] MEDS: Thiamine HCL 100 MG TABLET PO (08:28)
[2024-03-28] MEDS: Folic Acid 1 MG TABLET PO (08:28)
[2024-03-28] MEDS: cloNIDine HCL 0.1 MG TABLET PO ×2 (08:35→20:48)
--- NOTE | 2024-03-28 10:07 | HO.PSYCHPN ---
Subjective Subjective Date of Service: 03/28/24 Reason For Visit: alcohol use disorder, major depression, recurrent Interim History: met with pt; discussed with team pt doing well, no depression, using coping skills and dealing well with anxiety. Discussed sobriety, challenges, getting into program and maintaining sobriety post program. Mental Status Exam Mental Status Exam Narrative: Pt is alert and oriented; behavior is cooperative, friendly, calm; patient is not in distress; dressed in casual attire, scruffy facial hair but adequate hygiene; mood is described as better and affect congruent, still somewhat anxious but less so; eye contact appropriate; Speech is normal rate, volume and prosody and not pressured; no psychomotor agitation/retardation present; thought process is organized and goal directed; Thought content is on tx, aftercare, overcoming struggles; otherwise pertinent to relevant topics and without any delusional content, paranoid ideations or grandiosity; denies any SI/HI. There is no evidence of perceptual disturbance. Patients insight and judgment fair. Diagnostics Vital Signs (24Hr): Vital Signs - 24 hr 03/27/24 20:00 03/27/24 20:44 03/28/24 08:00 Temperature 97.3 F 97.8 F Pulse Rate 87 72 Respiratory Rate 18 Blood Pressure 142/74 H 142/74 H 113/63 Pulse Oximetry 97 99 Oxygen Delivery Method Room Air Room Air BMI result Body Mass Index 26.0 Medications Medications Current Medications Acetaminophen (Acetaminophen 325 Mg Tablet) 650 mg PO Q4H PRN PRN Reason: Pain, Mild (Pain Scale 1-3) Last Admin: 03/26/24 08:41 Dose: 650 mg Al Hydroxide/Mg Hydroxide (Magnesium Hydrox/Alum Hydrox 30 Ml Oral.Susp) 30 ml PO Q6H PRN PRN Reason: Heartburn/Nausea Clonidine HCl (Clonidine Hcl 0.1 Mg Tablet) 0.1 mg PO Q4H PRN; Protocol PRN Reason: moderate anxiety Last Admin: 03/28/24 08:35 Dose: 0.1 mg Clonidine HCl (Clonidine Hcl 0.1 Mg Tablet) 0.1 mg PO BEDTIME [facility]; Protocol Last Admin: 03/27/24 20:44 Dose: 0.1 mg Folic Acid (Folic Acid 1 Mg Tablet) 1 mg PO DAILY [facility] Last Admin: 03/28/24 08:28 Dose: 1 mg Hydroxyzine HCl (Hydroxyzine Hcl 25 Mg Tablet) 25 mg PO Q6H PRN PRN Reason: Anxiety Last Admin: 03/24/24 09:02 Dose: 25 mg Hydroxyzine HCl (Hydroxyzine Hcl 50 Mg Tablet) 100 mg PO BEDTIME [facility] Last Admin: 03/27/24 20:44 Dose: 100 mg Hydroxyzine HCl (Hydroxyzine Hcl 50 Mg Tablet) 50 mg PO BEDTIME PRN PRN Reason: continued insomnia Last Admin: 03/27/24 20:47 Dose: 50 mg Ibuprofen (Ibuprofen 600 Mg Tablet) 600 mg PO Q8H PRN PRN Reason: Pain, Mild (Pain Scale 1-3) Last Admin: 03/26/24 14:17 Dose: 600 mg Magnesium Hydroxide (Milk Of Magnesia 30 Ml Oral.Susp) 30 ml PO DAILY PRN PRN Reason: Constipation Nicotine (Nicotine 21 Mg Patch.Td24) 21 mg TRANSDERMA DAILY PRN PRN Reason: Nicotine Cravings Nicotine Polacrilex (Nicotine Polacrilex 2 Mg Gum) 4 mg BUCCAL Q2H PRN PRN Reason: Nicotine Cravings Sertraline HCl (Sertraline Hcl 100 Mg Tablet) 100 mg PO DAILY [facility] Last Admin: 03/28/24 08:28 Dose: 100 mg Thiamine HCl (Thiamine Hcl 100 Mg Tablet) 100 mg PO DAILY [facility] Last Admin: 03/28/24 08:28 Dose: 100 mg Allergies Allergies Allergy/AdvReac Type Severity Reaction Status Date / Time No Known Allergies Allergy Verified 03/26/24 14:06 Assessment & Plan Assessment & Plan (1) MDD (major depressive disorder), recurrent episode, severe: Status: Acute Code(s): F33.2 - Major depressive disorder, recurrent severe without psychotic features (2) Panic disorder: Status: Acute Code(s): F41.0 - Panic disorder [episodic paroxysmal anxiety] (3) Alcohol use disorder, severe, dependence: Status: Acute Code(s): F10.20 - Alcohol dependence, uncomplicated Plan Patient is a 33 male, employed full-time, with history of depression, anxiety, panic and alcohol abuse/dependence who presents for worsening anxiety in the face of chronic alcoholism limited psychiatric treatment; currently on phenobarbital taper. Patient says he has resisted treatment for a long time however he is losing so many things in his life due to his anxiety, depression and subsequent severe alcohol addiction that he is finally willing to get help. Patient denies any SI at all, saying that he did tell the nurse I do not want to be here again but that was misinterpreted and that he only meant to say he does not want to be locked in this cycle of addiction and in a hopeless mind set. Patient reports that depression started in his early teenage years which worsened after his parents ; anxiety started in his 20s and soon after he started drinking alcohol which became daily and severe. Patient has episodes of severe depression that can last for several weeks during which he has most neurovegetative symptoms of depression; has severe panic attacks, up to 3 a week which are overwhelming and with an impending sense of doom; while he finds alcohol temporarily relieves his symptoms, he hates what alcohol addiction is doing to his life. Over the last 6 months he has tried to cut down and over the past 2 weeks he has been able to keep himself and drinking except for 3 specific days where he binged heavily. Patient tried to deal with withdrawal symptoms on his own however became tremulous diaphoretic, nauseous and so came to the hospital for treatment. Patient denies any history of SI or SA; denies any history of manic type behaviors or episodes; no AVH. Patient agrees with medication treatment and therapy. Formulation/clinical reason: Patient decades long history of depression and anxiety; unfortunately he never sought psychiatric help and instead turned to alcohol which has now become an equally debilitating problem. Patient however presents as very eager to become sober and get treatment for both depression and anxiety. Agrees to continue with Zoloft and to titrate. Also will try clonidine to help with insomnia. Wants therapy and wants help with sobriety post discharge. -rule out [facility] course: 03/24 improving; tolerating meds; w/drawal symptoms waning; likely [facility] but will further explore. Will likely further titrate zoloft -asks for trazodone to be increased (reviewed risks/side-effects) 03/25 Overall doing better. Still very anxious but finds clonidine as a p.r.n. very helpful and though was exceedingly anxious about meeting with his mother today, felt that clonidine helped him relax and actually enjoy interaction. Depression remains but improving. Still struggling with sleep and did not fall asleep for quite a while despite trazodone. Also finds trazodone makes him groggy and causes headache. Asks to go back to hydroxyzine which he had taken in the past, up to 200 mg q.h.s.; agrees to start with 100 mg for now. Agrees to titrate Zoloft further but will give it another day or so. Discussed at length, patient's anxiety, struggles with fears of failure, plans for sobriety, relationship with his mother. Patient very eager to continue treatment as an outpatient and wants to go to a [facility] 03/26Doing better; practicing coping skills; discussing treatment and engaged in therapeutic exercises; very willing to be self aware and introspection. Remains very focused on aftercare and pursuing sobriety. 03/27 remains much improved, depression dissipated; anxiety under control. Patient using coping skills and working on avoiding taking PRNs. Hoping for program 03/28 doing well; depression resolved; implementing coping dat well; future oriented and focused on sobriety Patient is stable on current medication regimen Patient remains in good behavioral and impulse control. Invested in treatment, going to all groups, forthcoming in 1 on 1 sessions. Patient is appropriate with peers and staff. PLAN CV q15 Continue phenobarb taper.... Will increase to Zoloft to 100 mg daily continue clonidine 0.1 mg q.h.s. for chronic insomnia Continue clonidine 0.1 mg Q 4 p.r.n. for anxiety Continue hydroxyzine 100 mg q.h.s. with 50 mg p.r.n. for insomnia (patient reports has been on 200 mg q.h.s. before) Discontinue trazodone Ativan 1 mg daily p.r.n. for panic -reviewed labs with patient; LFTs mildly elevated trending down; elevated triglycerides. Patient says will talk with outpatient provider about this Patient educated on: diagnosis, medication risk/benefits, substance abuse and therapeutic strategies Informed Consent: understands Reason for continued inpatient stay Substantial Risk for: stable for discharge Time Spent With Patient Time: Total time managing care of this patient today ____ minutes.
[2024-03-28 20:00] VITALS: BP 111/64; PULSE 77; RESP 16; TEMP 36.8; O2SAT 98
[2024-03-28 20:48] VITALS: BP 111/64
[2024-03-28] MEDS: hydrOXYzine HCL 50 MG TABLET 150 MG PO (20:48)
[2024-03-29 08:46] VITALS: BP 109/68; PULSE 75; RESP 16; TEMP 36.5; O2SAT 98
[2024-03-29 08:54] VITALS: BP 111/69
[2024-03-29] MEDS: Thiamine HCL 100 MG TABLET PO (08:54)
[2024-03-29] MEDS: cloNIDine HCL 0.1 MG TABLET PO ×2 (08:54→20:44)
[2024-03-29] MEDS: Folic Acid 1 MG TABLET PO (08:54)
[2024-03-29] MEDS: Sertraline HCL 100 MG TABLET PO (08:54)
--- NOTE | 2024-03-29 10:11 | P.PNPSI_ITS ---
Subjective Subjective Date of Service: 03/29/24 Reason For Visit: alcohol use disorder, major depression, recurrent Interim History: met with patient; discussed with team Patient reports doing well, good mood, and remains hopeful about getting into a program. Discussed what to expect at such a program and patient feels ready and eager to attend. Patient is future oriented and optimistic that he will be able to remain sober. Sleeping well and tolerating medications well Mental Status Exam Mental Status Exam Narrative: Pt is alert and oriented; behavior is cooperative, friendly, calm; patient is not in distress; dressed in casual attire, scruffy facial hair but adequate hygiene; mood is described as better and affect congruent, still somewhat anxious but less so; eye contact appropriate; Speech is normal rate, volume and prosody and not pressured; no psychomotor agitation/retardation present; thought process is organized and goal directed; Thought content is on tx, aftercare, overcoming struggles; otherwise pertinent to relevant topics and without any delusional content, paranoid ideations or grandiosity; denies any SI/HI. There is no evidence of perceptual disturbance. Patients insight and judgment fair. Diagnostics Vital Signs (24Hr): Vital Signs - 24 hr 03/28/24 20:00 03/28/24 20:48 03/29/24 08:54 Temperature 98.2 F Pulse Rate 77 Respiratory Rate 16 Blood Pressure 111/64 111/64 111/69 Pulse Oximetry 98 Oxygen Delivery Method Room Air BMI result Body Mass Index 26.0 Medications Medications Current Medications Acetaminophen (Acetaminophen 325 Mg Tablet) 650 mg PO Q4H PRN PRN Reason: Pain, Mild (Pain Scale 1-3) Last Admin: 03/26/24 08:41 Dose: 650 mg Al Hydroxide/Mg Hydroxide (Magnesium Hydrox/Alum Hydrox 30 Ml Oral.Susp) 30 ml PO Q6H PRN PRN Reason: Heartburn/Nausea Clonidine HCl (Clonidine Hcl 0.1 Mg Tablet) 0.1 mg PO Q4H PRN; Protocol PRN Reason: moderate anxiety Last Admin: 03/29/24 08:54 Dose: 0.1 mg Clonidine HCl (Clonidine Hcl 0.1 Mg Tablet) 0.1 mg PO BEDTIME [facility]; Protocol Last Admin: 03/28/24 20:48 Dose: 0.1 mg Folic Acid (Folic Acid 1 Mg Tablet) 1 mg PO DAILY [facility] Last Admin: 03/29/24 08:54 Dose: 1 mg Hydroxyzine HCl (Hydroxyzine Hcl 25 Mg Tablet) 25 mg PO Q6H PRN PRN Reason: Anxiety Last Admin: 03/24/24 09:02 Dose: 25 mg Hydroxyzine HCl (Hydroxyzine Hcl 50 Mg Tablet) 50 mg PO BEDTIME PRN PRN Reason: continued insomnia Last Admin: 03/27/24 20:47 Dose: 50 mg Hydroxyzine HCl (Hydroxyzine Hcl 50 Mg Tablet) 150 mg PO BEDTIME [facility] Last Admin: 03/28/24 20:48 Dose: 150 mg Ibuprofen (Ibuprofen 600 Mg Tablet) 600 mg PO Q8H PRN PRN Reason: Pain, Mild (Pain Scale 1-3) Last Admin: 03/26/24 14:17 Dose: 600 mg Magnesium Hydroxide (Milk Of Magnesia 30 Ml Oral.Susp) 30 ml PO DAILY PRN PRN Reason: Constipation Nicotine (Nicotine 21 Mg Patch.Td24) 21 mg TRANSDERMA DAILY PRN PRN Reason: Nicotine Cravings Nicotine Polacrilex (Nicotine Polacrilex 2 Mg Gum) 4 mg BUCCAL Q2H PRN PRN Reason: Nicotine Cravings Sertraline HCl (Sertraline Hcl 100 Mg Tablet) 100 mg PO DAILY [facility] Last Admin: 03/29/24 08:54 Dose: 100 mg Thiamine HCl (Thiamine Hcl 100 Mg Tablet) 100 mg PO DAILY [facility] Last Admin: 03/29/24 08:54 Dose: 100 mg Allergies Allergies Allergy/AdvReac Type Severity Reaction Status Date / Time No Known Allergies Allergy Verified 03/26/24 14:06 Assessment & Plan Assessment & Plan (1) MDD (major depressive disorder), recurrent episode, severe: Status: Acute Code(s): F33.2 - Major depressive disorder, recurrent severe without psychotic features (2) Panic disorder: Status: Acute Code(s): F41.0 - Panic disorder [episodic paroxysmal anxiety] (3) Alcohol use disorder, severe, dependence: Status: Acute Code(s): F10.20 - Alcohol dependence, uncomplicated Plan Patient is a 33 male, employed full-time, with history of depression, anxiety, panic and alcohol abuse/dependence who presents for worsening anxiety in the face of chronic alcoholism limited psychiatric treatment; currently on phenobarbital taper. Patient says he has resisted treatment for a long time however he is losing so many things in his life due to his anxiety, depression and subsequent severe alcohol addiction that he is finally willing to get help. Patient denies any SI at all, saying that he did tell the nurse I do not want to be here again but that was misinterpreted and that he only meant to say he does not want to be locked in this cycle of addiction and in a hopeless mind set. Patient reports that depression started in his early teenage years which worsened after his parents ; anxiety started in his 20s and soon after h e started drinking alcohol which became daily and severe. Patient has episodes of severe depression that can last for several weeks during which he has most neurovegetative symptoms of depression; has severe panic attacks, up to 3 a week which are overwhelming and with an impending sense of doom; while he finds alcohol temporarily relieves his symptoms, he hates what alcohol addiction is doing to his life. Over the last 6 months he has tried to cut down and over the past 2 weeks he has been able to keep himself and drinking except for 3 specific days where he binged heavily. Patient tried to deal with withdrawal symptoms on his own however became tremulous diaphoretic, nauseous and so came to the hospital for treatment. Patient denies any history of SI or SA; denies any history of manic type behaviors or episodes; no AVH. Patient agrees with medication treatment and therapy. Formulation/clinical reason: Patient decades long history of depression and anxiety; unfortunately he never sought psychiatric help and instead turned to alcohol which has now become an equally debilitating problem. Patient however presents as very eager to become sober and get treatment for both depression and anxiety. Agrees to continue with Zoloft and to titrate. Also will try clonidine to help with insomnia. Wants therapy and wants help with sobriety post discharge. -rule out [facility] course: 03/24 improving; tolerating meds; w/drawal symptoms waning; likely [facility] but will further explore. Will likely further titrate zoloft -asks for trazodone to be increased (reviewed risks/side-effects) 03/25 Overall doing better. Still very anxious but finds clonidine as a p.r.n. very helpful and though was exceedingly anxious about meeting with his mother today, felt that clonidine helped him relax and actually enjoy interaction. Depression remains but improving. Still struggling with sleep and did not fall asleep for quite a while despite trazodone. Also finds trazodone makes him groggy and causes headache. Asks to go back to hydroxyzine which he had taken in the past, up to 200 mg q.h.s.; agrees to start with 100 mg for now. Agrees to titrate Zoloft further but will give it another day or so. Discussed at length, patient's anxiety, struggles with fears of failure, plans for sobriety, relationship with his mother. Patient very eager to continue treatment as an outpatient and wants to go to a [facility] 03/26Doing better; practicing coping skills; discussing treatment and engaged in therapeutic exercises; very willing to be self aware and introspection. Remains very focused on aftercare and pursuing sobriety. 03/27 remains much improved, depression dissipated; anxiety under control. Patient using coping skills and working on avoiding taking PRNs. Hoping for program 03/28 doing well; depression resolved; implementing coping dat well; future oriented and focused on sobriety Patient is stable on current medication regimen Patient remains in good behavioral and impulse control. Invested in treatment, going to all groups, forthcoming in 1 on 1 sessions. Patient is appropriate with peers and staff. PLAN CV q15 Continue phenobarb taper.... Will increase to Zoloft to 100 mg daily continue clonidine 0.1 mg q.h.s. for chronic insomnia Continue clonidine 0.1 mg Q 4 p.r.n. for anxiety Continue hydroxyzine 100 mg q.h.s. with 50 mg p.r.n. for insomnia (patient reports has been on 200 mg q.h.s. before) Discontinue trazodone Ativan 1 mg daily p.r.n. for panic -reviewed labs with patient; LFTs mildly elevated trending down; elevated triglycerides. Patient says will talk with outpatient provider about this Patient educated on: diagnosis, medication risk/benefits, substance abuse and therapeutic strategies Informed Consent: understands Reason for continued inpatient stay Substantial Risk for: stable for discharge Time Spent With Patient Time: Total time managing care of this patient today ____ minutes.
[2024-03-29 20:00] VITALS: BP 127/60; PULSE 82; RESP 16; TEMP 36.9; O2SAT 96
[2024-03-29 20:44] VITALS: BP 127/60
[2024-03-29] MEDS: hydrOXYzine HCL 50 MG TABLET 150 MG PO (20:44)
[2024-03-30 06:38] VITALS: BP 132/63
[2024-03-30] MEDS: Acetaminophen 325 MG TABLET 650 MG PO (06:38)
[2024-03-30] MEDS: cloNIDine HCL 0.1 MG TABLET PO (06:38)
[2024-03-30 08:00] VITALS: BP 119/55; PULSE 73; RESP 20; TEMP 36.4; O2SAT 99
[2024-03-30] MEDS: Folic Acid 1 MG TABLET PO (08:39)
[2024-03-30] MEDS: Sertraline HCL 100 MG TABLET PO (08:39)
[2024-03-30] MEDS: Thiamine HCL 100 MG TABLET PO (08:39)
--- NOTE | 2024-03-30 12:26 | PM.PSYDC ---
DS: Providers Provider Date of Service: 03/30/24 Date of admission: 03/22/24 15:03 Date of discharge: 03/30/24 Primary care physician: Unknown Physician Attending physician on admission: Vladimir Golden Consults: 03/22/24 19:19 Addiction Medicine Routine Consulting Provider: Addiction Covering Reason for consultation: heavy ETOH use Attending physician on discharge: Vladimir Golden DS: Diagnosis Discharge Diagnosis (1) MDD (major depressive disorder), recurrent episode, severe: Status: Acute (2) Panic disorder: Status: Acute (3) Alcohol use disorder, severe, dependence: Status: Acute DS: Medications Discharge Medications Home Medications: Previous Rx's ?Medication ?Instructions ?Recorded acetaminophen 325 mg tablet 650 mg (2 x 325 mg) PO Q4H PRN 03/30/24 Pain, Mild (Pain Scale 1-3) #0 tabs clonidine HCl 0.1 mg tablet 0.1 mg PO Q4H PRN anxiety/insomnia 03/30/24 30 days #90 tabs hydroxyzine HCl 50 mg tablet 150 mg (3 x 50 mg) PO BEDTIME 30 03/30/24 days #90 tabs sertraline 100 mg tablet 150 mg (1.5 x 100 mg) PO DAILY 03/30/24 days #45 tabs Mental Status Exam Mental Status Exam Narrative: Pt is alert and oriented; behavior is cooperative, friendly, calm; patient is not in distress; dressed in casual attire, scruffy facial hair but adequate hygiene; mood is described as better and affect congruent, still somewhat anxious but less so; eye contact appropriate; Speech is normal rate, volume and prosody and not pressured; no psychomotor agitation/retardation present; thought process is organized and goal directed; Thought content is on tx, aftercare, overcoming struggles; otherwise pertinent to relevant topics and without any delusional content, paranoid ideations or grandiosity; denies any SI/HI. There is no evidence of perceptual disturbance. Patients insight and judgment fair. DS: Summary Hospital Course Hospital Course: HPI: Patient is a 33 male, employed full-time, with history of depression, anxiety, panic and alcohol abuse/dependence who presents for worsening anxiety in the face of chronic alcoholism limited psychiatric treatment; currently on phenobarbital taper. Patient says he has resisted treatment for a long time however he is losing so many things in his life due to his anxiety, depression and subsequent severe alcohol addiction that he is finally willing to get help. Patient denies any SI at all, saying that he did tell the nurse I do not want to be here again but that was misinterpreted and that he only meant to say he does not want to be locked in this cycle of addiction and in a hopeless mind set. Patient reports that depression started in his early teenage years which worsened after his parents ; anxiety started in his 20s and soon after he started drinking alcohol which became daily and severe. Patient has episodes of severe depression that can last for several weeks during which he has most neurovegetative symptoms of depression; has severe panic attacks, up to 3 a week which are overwhelming and with an impending sense of doom; while he finds alcohol temporarily relieves his symptoms, he hates what alcohol addiction is doing to his life. Over the last 6 months he has tried to cut down and over the past 2 weeks he has been able to keep himself and drinking except for 3 specific days where he binged heavily. Patient tried to deal with withdrawal symptoms on his own however became tremulous diaphoretic, nauseous and so came to the hospital for treatment. Patient denies any history of SI or SA; denies any history of manic type behaviors or episodes; no AVH. Patient agrees with medication treatment and therapy. hosptial course: On admission, patient depressed and tearful. Phenobarb taper started in ED out of an abundance of caution. Reports long history of depression and anxiety; unfortunately he never sought psychiatric help and instead turned to alcohol which has now become an equally debilitating problem. Patient however presents as very eager to become sober and get treatment for both depression and anxiety. Agrees to continue with Zoloft and to titrate. Also will try clonidine to help with insomnia. Wants therapy and wants help with sobriety post discharge, agreeing to apply to programs. Although patient has several worries, did not seem to quite meet criteria for [facility]. Throughout the rest of patient's admission, he remained in good behavioral and impulse control, appropriate peers and staff, fully engaged in treatment and forthcoming in 1 on 1 sessions. Patient was very willing to explore his own thoughts and feelings and work on coping skills. He felt medications helpful, tolerating Zoloft and finding clonidine extremely helpful for anxiety during the day. Patient asked for and appreciated hydroxyzine to help with insomnia. Patient was accepted into a program. He remained in good mood, optimistic and future oriented. Patient was not in imminent risk for harm to self or others appropriate to return to the community for treatment. Time spent discussing smoking cessation with patient: 3 to 10 minutes Status at Discharge Functional status at discharge: independent ambulation Overall status at discharge: patient is back to baseline Time Spent with Patient Time attestation: Total time managing care of this patient today ____ minutes. Time spent: Greater than 30 minutes Discharge Plan Discharge Anticipated Discharge Date/Time: 03/30/24 14:00 Patient Disposition: Home, Self-Care Discharge Diagnosis: MDD, recurrent, severe w/out psychotic features, in full remission Referrals: Physician,Сергей J [Primary Care Provider] - 1 Week ([facility] will assist you in establishing a new PCP and therapist ) Discharge Medications: New clonidine HCl 0.1 mg Tablet 0.1 mg PO Q4H PRN (Reason: anxiety/insomnia) 30 Days Qty: 90 1RF Protocol: Hold for SBP< HOLD for SBP < : 90 acetaminophen 325 mg Tablet 650 mg PO Q4H PRN (Reason: Pain, Mild (Pain Scale 1-3)) Qty: 0 0RF hydroxyzine HCl 50 mg Tablet 150 mg PO BEDTIME 30 Days Qty: 90 1RF Changed sertraline 100 mg tablet 150 mg PO DAILY 30 Days Qty: 45 1RF Discontinued folic acid 1 mg tablet 1 mg PO DAILY Qty: 30 0RF hydroxyzine pamoate 100 mg capsule 200 mg PO BEDTIME PRN (Reason: Insomnia) thiamine HCl (vitamin B1) 100 mg tablet 100 mg PO DAILY Qty: 30 0RF Discharge Orders: Discharge Order (Routine); Ordered 03/30/24 Ordered By: Vladimir Golden Diet: Regular diet Activity on Discharge: As tolerated Stand Alone Forms: Patient Portal Discharge page, Community Support Print Language: Lithuanian Care Plan Goals: Maintain mood and safe behaviors Take medications as prescribed Continue to pursue sobriety Practice coping skills Continue with outpatient providers and reach out to them as needed Health Concerns: Mood stability and behaviors Sobriety Plan of Treatment: Follow up with your PCP, psychiatric provider and other outpatient providers regarding above concerns Take medications as prescribed Assessment: Risk assessment at time of discharge:? Patient was interviewed prior to discharge and found to be fully oriented and without any SI or HI. Patient has improved insight and judgment and wants to continue treatment. Patient is not in imminent risk of harm to self or others and has a safety plan that includes presenting to the closest ER or calling 911 if feeling unsafe.? Patient has been observed closely by nursing and unit staff throughout admission; patient has not engaged in any behaviors that suggest dangerousness to self or others and has demonstrated appropriate behaviors and impulse control Discharge Date/Time: 03/30/24 14:09
[2024-03-30] MEDS: hydrOXYzine HCL 25 MG TABLET PO (14:02)
== END 2024-03-30 14:09 | disposition home or self-care (01) | DRG 751 ==
PROVIDERS: Clinical Nurse Specialist Psychiatric/Mental Health, Adult; Admitting Provider Internal Medicine; Visit Provider Psychiatry & Neurology Psychiatry
DX: F33.2 Major depressive disorder, recurrent severe without psychotic features (principal); F10.20 Alcohol dependence, uncomplicated; F41.0 Panic disorder [episodic paroxysmal anxiety]; Z79.899 Other long term (current) drug therapy
CPT/HCPCS: 36415; 80061; 82607; 82746; 83036; 83735; 84439; 84443

== ENCOUNTER → 2024-03-22 15:03 | Outpatient (BNV) | payer OTHER, SELFPAY | PROVIDERS: Admitting Provider Internal Medicine; Visit Provider Psychiatry & Neurology Psychiatry | DX: F33.2 Major depressive disorder, recurrent severe without psychotic features (principal); F41.0 Panic disorder [episodic paroxysmal anxiety]; F10.20 Alcohol dependence, uncomplicated | CPT/HCPCS: 99231; 99232 ==

== ENCOUNTER → 2024-03-22 15:03 | Outpatient (BNV) | payer OTHER, SELFPAY | PROVIDERS: Admitting Provider Internal Medicine; Visit Provider Nurse Practitioner Psychiatric/Mental Health | DX: F10.20 Alcohol dependence, uncomplicated (principal) | CPT/HCPCS: 99499 ==

== ENCOUNTER 2024-04-29 20:42 | Emergency (ER) | payer OTHER, SELFPAY ==
[2024-04-29 20:45] VITALS: BP 150/100; PULSE 106; O2SAT 96
[2024-04-29 20:57] VITALS: BP 115/79; PULSE 94; RESP 16; TEMP 37; O2SAT 96; BMI 26.6
--- NOTE | 2024-04-29 21:32 | ED.ALCOHOL ---
HPI - Alcohol General Chief Complaint: Psychiatric Symptoms Stated Complaint: etoh,sect 12 per cpd, si Time Seen by Provider: 04/29/24 21:05 Source: patient Mode of arrival: ambulatory Limitations: no limitations History of Present Illness ED Provider: candida MOSES narrative: Patient alcoholic been drinking heavy for last 2 years with history of depression been to detox multiple times patient admits worsening of the depression denies any SI at this time asking for detox and psych evaluation patient was here last time 03/20/24 patient has used cocaine in the past Related Data Previous Rx's ?Medication ?Instructions ?Recorded acetaminophen 325 mg tablet 650 mg (2 x 325 mg) PO Q4H PRN 03/30/24 Pain, Mild (Pain Scale 1-3) #0 tabs clonidine HCl 0.1 mg tablet 0.1 mg PO Q4H PRN anxiety/insomnia 03/30/24 30 days #90 tabs hydroxyzine HCl 50 mg tablet 150 mg (3 x 50 mg) PO BEDTIME 30 03/30/24 days #90 tabs sertraline 100 mg tablet 150 mg (1.5 x 100 mg) PO DAILY 30 03/30/24 days #45 tabs Allergies Allergy/AdvReac Type Severity Reaction Status Date / Time No Known Allergies Allergy Verified 04/29/24 20:58 Review of Systems Review of Systems: Yes all other systems are reviewed and are negative PMFSH Past Medical History Medical History Panic disorder Anxiety Alcohol abuse Active substance abuse Social History Social History Household Members: Other Housing: Condominium Do you presently have visiting nurse or other home services: No Alcohol intake: current Alcohol intake frequency: 3 or more drinks per day Alcohol type: hard liquor Patient Tobacco Use Status: Never used Tobacco Tobacco use type: Smokeless Tobacco Smoked in Last 30 Days: No Use of substances other than those prescribed or required for medical reasons: No Substance Use Type: Crack/Cocaine and Marijuana Advance Directives: No Advance Directives Information Provided: No service: No Sexual orientation: Straight/Heterosexual Physical Exam ED Vital Signs: Vital Signs - 24 hr 04/29/24 20:57 04/29/24 22:00 04/30/24 03:45 Temperature 98.6 F 97.4 F 97.8 F Pulse Rate 94 89 88 Respiratory Rate 16 20 18 Blood Pressure 115/79 126/81 120/82 Pulse Oximetry 96 96 96 Oxygen Delivery Method Room Air Room Air Room Air BMI result Body Mass Index 26.6 Appearance: Alert. Oriented X3. No acute distress. etoh+ Eyes: No pallor or icterus ENT: Pharynx normal. Oral Mucosa moist Neck: Normal inspection. Neck supple. CVS: Normal heart rate and rhythm. Pulses normal. Respiratory: No respiratory distress. Equal air entry bilateral, no wheezing/rales/rhonchi Abdomen: Soft and nontender. Bowel sounds are present, no mass palpable, no CVA tenderness Skin: Skin warm and dry. Normal skin color. Normal skin turgor. Extremities: No lower extremity edema. No calf tenderness psych: Depressed tearful denies SI Neuro: Oriented X 3. No motor deficit. No sensory deficit.No cerebellar signs , cranial nerves II-XII intact Medical Decision Making Medical Decision Making MDM Narrative: Patient with depression alcohol use disorder will get care team involved for evaluation patient has been here for same in the past patient refused to give blood or urine in the ER Medications Administered Generic Name Dose Route Start Last Admin Trade Name Freq PRN Reason Stop Dose Admin Lorazepam 2 mg 04/29/24 21:37 04/30/24 03:49 Lorazepam 1 Mg Tablet PO 2 mg RQ4H WHILE AWAKE PRN Administration Alcohol Withdrawal Discharge Plan Discharge Clinical Impression: Depression, Alcohol use disorder, severe, dependence Patient Disposition: Still a Patient Prescriptions: No Action clonidine HCl 0.1 mg Tablet 0.1 mg PO Q4H PRN (Reason: anxiety/insomnia) 30 Days Qty: 90 1RF Protocol: Hold for SBP< HOLD for SBP < : 90 acetaminophen 325 mg Tablet 650 mg PO Q4H PRN (Reason: Pain, Mild (Pain Scale 1-3)) Qty: 0 0RF hydroxyzine HCl 50 mg Tablet 150 mg PO BEDTIME 30 Days Qty: 90 1RF sertraline 100 mg tablet 150 mg PO DAILY 30 Days Qty: 45 1RF Interventions: [place]-Suicide Risk Severity Scale Last Done: 04/29/24 22:26 Print Language: Guamanian
--- NOTE | 2024-04-29 21:49 | PC.NURSE ---
pt reporting this withdrawl will be the worst one yet
[2024-04-29 22:00] VITALS: BP 126/81; PULSE 89; RESP 20; TEMP 36.3; O2SAT 96
[2024-04-29] MEDS: LORazepam 1 MG TABLET 2 MG PO (22:24)
--- NOTE | 2024-04-29 22:41 | PC.NURSE ---
pt refused labs and unable to given urine at this time.
--- NOTE | 2024-04-29 22:46 | PC.NURSE ---
belongings in [place]
[2024-04-30 03:45] VITALS: BP 120/82; PULSE 88; RESP 18; TEMP 36.6; O2SAT 96
[2024-04-30] MEDS: LORazepam 1 MG TABLET 2 MG PO ×2 (03:49→14:25)
[2024-04-30 08:04] VITALS: BP 110/65; PULSE 81; RESP 16; TEMP 36.2; O2SAT 93
[2024-04-30] MEDS: hydrOXYzine HCL 50 MG TABLET 150 MG PO ×2 (09:17→20:06)
[2024-04-30] MEDS: Thiamine HCL 100 MG TABLET 200 MG PO (09:17)
[2024-04-30] MEDS: Sertraline HCL 50 MG TABLET 150 MG PO (09:18)
[2024-04-30] MEDS: Folic Acid 1 MG TABLET PO (09:18)
[2024-04-30] MEDS: Thiamine HCL 100 MG TABLET PO (09:18)
[2024-04-30 10:13] LABS: MANUAL DIFF FLAG NO
[2024-04-30 10:18] LABS: Basophils Percent Auto 0.7 % (0-2); Eosinophils Absolute Auto 0.4 X10*3/uL (0.0-0.4); Eosinophils Percent Auto 7.1 % (0-4); Hematocrit 36.1 % (42.0-52.0); Hemoglobin 12.4 g/dl (14.0-18.0); Imm Gran Abs Auto 0.04 X10*3/uL (0.00-0.03); Imm Gran Pct Auto 0.7 % (0.0-0.4); Lymphocytes Absolute Auto 1.4 X10*3/uL (1.2-4.9); Lymphocytes Percent Auto 25.3 % (20-40); Mean Corpuscular HGB Conc 34.3 g/dl (31.0-36.0); Mean Corpuscular Hemoglobin 30.8 pg (27.0-33.0); Mean Corpuscular Volume 89.6 fL (80.0-98.0); Mean Platelet Volume 8.5 fL (9.4-12.4); Monocytes Absolute Auto 0.6 X10*3/uL (0.1-1.2); Monocytes Percent Auto 10.6 % (2-11); Neutrophils Percent Auto 55.6 % (45-73); Platelet Count 202 X10*3/uL (160-400); Red Blood Count 4.03 X10*6/uL (4.60-5.80); Red Cell Distribution Width 13.6 % (11.0-16.0); White Blood Count 5.4 X10*3/uL (4.8-10.8)
[2024-04-30 10:35] LABS: Alanine Aminotransferase 27 U/L (0-40); Albumin Level 3.7 g/dL (3.5-5.0); Alkaline Phosphatase 77 U/L (39-117); Anion Gap 13 (12-20); Aspartate Amino Transferase 28 U/L (5-37); Bilirubin Total 0.2 mg/dL (0.0-1.0); Blood Urea Nitrogen 14 mg/dL (9-16); Calcium 8.9 mg/dL (8.4-10.2); Carbon Dioxide 27 mmol/L (22-29); Chloride 103 mmol/L (96-108); Creatinine Clr Calc Pharmacy 132.5; Estimated Glomerular Filt Rate > 60; Ethanol 168 mg/dL; Glucose Random 86 mg/dL (60-115); Potassium 4.1 mmol/L (3.3-5.1); Sodium 139 mmol/L (135-145); Total Protein 6.6 g/dL (6.5-8.0)
[2024-04-30 14:33] VITALS: PULSE 120
--- NOTE | 2024-04-30 14:35 | PC.NURSE ---
aprox 1425 patient came out of his room complaining of increased withdrawal sx. gross tremor noted and slightly diaphoretic. elevated pulse. MD cline and ativan requested.
[2024-04-30 14:57] VITALS: BP 122/72; PULSE 89; RESP 20; TEMP 37.2; O2SAT 95
[2024-04-30] MEDS: PHENobarbitaL 200 MG, PHENobarbitaL 60 MG, PHENobarbitaL 15 MG 275 MG PO (17:00)
--- NOTE | 2024-04-30 17:21 | PC.NURSE ---
INSUFFICENT AMOUNT OF PHENOBARB WAS AVAILABLE FOR DOSING OF 275MG PO IN [facility]- PHARMACY AWARE AND IS GOING TO LOAD REMAINING DOSE FOR PATIENT. HE WAS GIVEN 75 MG WHILE WAITING FOR 200MG
[2024-04-30 17:25] VITALS: BP 134/82; PULSE 81; RESP 18; O2SAT 98
[2024-04-30] MEDS: PHENobarbitaL 200 MG PO ONCE PO (17:27)
[2024-04-30] MEDS: Acetaminophen 325 MG TABLET 650 MG PO (17:28)
[2024-04-30 19:44] VITALS: BP 123/80; PULSE 78; RESP 16; TEMP 36.8; O2SAT 96
--- NOTE | 2024-05-01 00:07 | PC.NURSE ---
Assumed care of patient at 2300, patient appears to be sleeping, respirations even and unlabored, no apparent distress noted. Continue plan of care for re-eval in the am
[2024-05-01 06:13] VITALS: BP 139/83; PULSE 76; RESP 18; TEMP 36.4; O2SAT 97
[2024-05-01] MEDS: Thiamine HCL 100 MG TABLET PO (09:03)
[2024-05-01] MEDS: Sertraline HCL 50 MG TABLET 150 MG PO (09:03)
[2024-05-01] MEDS: PHENobarbitaL 15 MG TABLET 45 MG PO (09:03)
[2024-05-01] MEDS: Folic Acid 1 MG TABLET PO (09:03)
[2024-05-01 10:11] VITALS: BP 145/95; PULSE 88; RESP 18; TEMP 36.8; O2SAT 96
== END 2024-05-01 10:14 | disposition home or self-care (01) ==
PROVIDERS: Emergency Provider Internal Medicine
DX: F33.2 Major depressive disorder, recurrent severe without psychotic features (principal); F10.230 Alcohol dependence with withdrawal, uncomplicated; Y90.6 Blood alcohol level of 120-199 mg/100 ml; F41.0 Panic disorder [episodic paroxysmal anxiety]; F19.10 Other psychoactive substance abuse, uncomplicated; Z79.899 Other long term (current) drug therapy
CPT/HCPCS: 80053; 80307; 85025; 99285; S9485

== ENCOUNTER 2024-05-05 17:21 | Emergency (ER) | payer OTHER, SELFPAY ==
[2024-05-05 17:26] VITALS: BP 126/78; PULSE 110; O2SAT 98
[2024-05-05 17:37] VITALS: BP 136/71; PULSE 110; RESP 20; TEMP 36.7; O2SAT 98; BMI 24.4
[2024-05-05 18:11] LABS: MANUAL DIFF FLAG NO
[2024-05-05 18:13] LABS: Basophils Percent Auto 0.7 % (0-2); Eosinophils Percent Auto 0.5 % (0-4); Hematocrit 43.5 % (42.0-52.0); Hemoglobin 15.4 g/dl (14.0-18.0); Lymphocytes Absolute Auto 1.6 X10*3/uL (1.2-4.9); Mean Corpuscular HGB Conc 35.4 g/dl (31.0-36.0); Mean Corpuscular Hemoglobin 30.9 pg (27.0-33.0); Mean Corpuscular Volume 87.3 fL (80.0-98.0); Monocytes Absolute Auto 0.4 X10*3/uL (0.1-1.2); Neutrophils Percent Auto 48.8 % (45-73); Platelet Count 315 X10*3/uL (160-400); Red Blood Count 4.98 X10*6/uL (4.60-5.80); Red Cell Distribution Width 13.4 % (11.0-16.0); White Blood Count 4.1 X10*3/uL (4.8-10.8)
[2024-05-05 18:27] LABS: Ethanol 384 mg/dL
[2024-05-05 18:29] LABS: Alanine Aminotransferase 51 U/L (0-40); Albumin Level 4.3 g/dL (3.5-5.0); Alkaline Phosphatase 98 U/L (39-117); Anion Gap 17 (12-20); Aspartate Amino Transferase 62 U/L (5-37); Bilirubin Direct 0.2 mg/dL (0.0-0.5); Bilirubin Total 0.4 mg/dL (0.0-1.0); Blood Urea Nitrogen 13 mg/dL (9-16); Calcium 8.8 mg/dL (8.4-10.2); Carbon Dioxide 27 mmol/L (22-29); Chloride 103 mmol/L (96-108); Creatinine Clr Calc Pharmacy 116.9; Estimated Glomerular Filt Rate > 60; Glucose Random 91 mg/dL (60-115); Sodium 143 mmol/L (135-145); Total Protein 7.9 g/dL (6.5-8.0)
[2024-05-05 20:36] VITALS: BP 133/90; PULSE 92; RESP 18; TEMP 37.1; O2SAT 94
[2024-05-05 21:09] VITALS: BP 133/90
[2024-05-05] MEDS: cloNIDine HCL 0.2 MG TABLET PO (21:09)
--- NOTE | 2024-05-05 21:26 | PC.NURSE ---
late entry-client asks for phenobarb, t/w did ciwa assessment not acute wd at this time. client makes grandiose statements, asking for dc. argues with staff, demanding certain medications and seemingly not perceiving what t/w is saying to him. providing urine sample presently.
[2024-05-05 21:52] LABS: Amphetamine Screen Urine Not Detected (Not Detect); Barbiturates, Urine POSITIVE (Not Detect); Benzodiazepines Screen Urine Not Detected (Not Detect); Buprenorphine Scr Not Detected (Not Detect); Cannabinoid Screen Urine Not Detected (Not Detect); Cocaine Screen Urine Not Detected (Not Detect); Fentanyl, urine Not Detected (Not Detect); Methadone Screen, Urine Not Detected (Not Detect); Opiate Screen Urine Not Detected (Not Detect); Oxycodone Screen Urine Not Detected (Not Detect); Phencyclidine Screen Urine Not Detected (Not Detect)
--- NOTE | 2024-05-05 22:29 | PC.NURSE ---
patient had been seen by provider and cleared to dc with sober ride. patient thereafter stated he had no one to call. patient provided w addl snacks.
[2024-05-05 23:41] VITALS: BP 108/77; PULSE 100; RESP 18; TEMP 37; O2SAT 99
[2024-05-06] VITALS (7 sets, daily range): BP systolic 107–127; BP diastolic 69–84; PULSE 60–80; RESP 16–20; TEMP 36.6–36.9; O2SAT 95–99
--- NOTE | 2024-05-06 00:15 | ED.PSYCH ---
HPI - Psych General Chief Complaint: Psychiatric Symptoms Stated Complaint: DEPRESSION,ANXIETY Time Seen by Provider: 05/05/24 17:35 Source: patient Limitations: other (Intoxication) History of Present Illness ED Provider: Torri Fontana PA-C HPI Narrative: 33-year-old male with history of alcohol abuse, depression, anxiety with panic disorder presents with panic attack. Patient admits to drinking alcohol overnight, he states ?I just lost my inheritance, my girlfriend, and my kitten?. Patient has gone through alcohol withdrawal in the past. Patient currently denies SI or HI. Related Data Previous Rx's ?Medication ?Instructions ?Recorded acetaminophen 325 mg tablet 650 mg (2 x 325 mg) PO Q4H PRN 03/30/24 Pain, Mild (Pain Scale 1-3) #0 tabs clonidine HCl 0.1 mg tablet 0.1 mg PO Q4H PRN anxiety/insomnia 03/30/24 30 days #90 tabs hydroxyzine HCl 50 mg tablet 150 mg (3 x 50 mg) PO BEDTIME 30 03/30/24 days #90 tabs sertraline 100 mg tablet 150 mg (1.5 x 100 mg) PO DAILY 30 03/30/24 days #45 tabs Allergies Allergy/AdvReac Type Severity Reaction Status Date / Time No Known Allergies Allergy Verified 05/05/24 17:37 Review of Systems Review of Systems: Yes all other systems are reviewed and are negative Constitutional: Constitutional: Denies fever(s) and Denies headache(s) ENT: Denies headache(s) Cardiovascular: Cardiovascular: Denies chest pain Gastrointestinal: Gastrointestinal: Reports no additional gastrointestinal complaints Neurologic: Denies headache(s) Psychiatric: Psychiatric: Reports anxiety, Reports panic attacks, Denies homicidal ideation and Denies suicidal ideation [facility] Past Medical History Attestation statement: The following information was validated with the patient. Medical History Panic disorder Anxiety Alcohol abuse Active substance abuse Social History Social History Household Members: Other [facility] Do you presently have visiting nurse or other home services: No Alcohol intake: current Alcohol intake frequency: 3 or more drinks per day Alcohol type: hard liquor Patient Tobacco Use Status: Never used Tobacco Tobacco use type: Smokeless Tobacco Smoked in Last 30 Days: No Use of substances other than those prescribed or required for medical reasons: No Substance Use Type: Crack/Cocaine and Marijuana Advance Directives: No Advance Directives Information Provided: No Do you have a plan to hurt others: No Plan service: No Sexual orientation: Straight/Heterosexual Physical Exam Vital Signs: Vital Signs: Last Vital Signs Temp 98.2 F 05/06/24 06:43 Pulse 80 05/06/24 06:43 Resp 16 05/06/24 06:43 BP 112/84 05/06/24 06:43 Pulse Ox 99 05/06/24 06:43 O2 Del Method Room Air 05/06/24 06:43 BMI result Body Mass Index 24.4 Const: Other: Awake, crying Orientation/consciousness: patient oriented x3 HEENT: Other: Alcohol halitosis Resp: Effort & Inspection: normal respiratory effort Cardio: Other: Normal peripheral perfusion Neuro: General: patient oriented x3, no focal motor deficits and CN's II-XI intact bilaterally Extrem: Other: Walking with steady gait Psych: Other: Cooperative in the ER, very tearful Medications Administered Discontinued Medications Generic Name Dose Route Start Last Admin Trade Name Freq PRN Reason Stop Dose Admin Acetaminophen 975 mg 05/06/24 01:03 05/06/24 01:11 Acetaminophen 325 Mg Tablet PO 05/06/24 01:04 975 mg ONCE ONE Administration Acetaminophen 975 mg 05/06/24 09:04 05/06/24 09:39 Acetaminophen 325 Mg Tablet PO 05/06/24 09:05 975 mg ONCE ONE Administration Clonidine HCl 0.2 mg 05/05/24 20:58 05/05/24 21:09 Clonidine Hcl 0.2 Mg Tablet PO 05/05/24 20:59 0.2 mg ONCE ONE Administration Protocol Lorazepam 0.5 mg 05/06/24 01:03 05/06/24 01:11 Lorazepam 0.5 Mg Tablet PO 05/06/24 01:04 0.5 mg ONCE ONE Administration Lorazepam 2 mg 05/06/24 08:04 05/06/24 08:08 Lorazepam 1 Mg Tablet PO 05/06/24 08:05 2 mg ONCE ONE Administration Phenobarbital Sodium 400 mg 05/06/24 09:30 05/06/24 09:40 Phenobarbital Sodium 130 Mg/Ml Im Once IM 05/06/24 09:31 400 mg ONCE ONE Administration Protocol Medical Decision Making Medical Decision Making MDM Narrative: 33-year-old male with history of alcohol abuse, depression, anxiety with panic disorder presents with panic attack. Patient admits to drinking alcohol overnight, he states ?I just lost my inheritance, my girlfriend, and my kitten?. Patient has gone through alcohol withdrawal in the past. Patient currently denies SI or HI. Problem: Alcohol abuse, psychiatric illness History: Per patient I have considered the following differential diagnoses: SI, HI, decompensated psychiatric illness, drug/alcohol intoxication Plan: Patient will require sober re-evaluation, we will be screening basic labs, serum ethanol and drug screen. He is denying SI or HI at this time. I asked if he wanted to call for a sober ride he declines he states there is no one to call, he wants to stay. He may be having thoughts of self-harm in the morning once he is sober. I have independently reviewed the following tests: Labs: No electrolyte abnormality, not anemic, no leukocytosis, ethanol 384, drug screen positive for barbiturates 05/06/2024 at 12:54 hours, Dr. Oneil Sanchez's note: Start physician observation I assumed care of this patient from my colleague Dr. Warren Smith at 07:00 hours. Patient was seen by our care team specialist and I obtained the following information. This is the patient's 2nd time being evaluated by the care team in 5 days. Patient's ethanol level was 384 last night. Patient had a recent admission in February to our psychiatric service. The patient did express to the care team specialist that he has had thoughts of suicide and thoughts of drinking alcohol until he dies. Given this thought, it was felt that the patient meets criteria for inpatient psychiatric treatment. Therefore the patient will the patient on a Section 12 and kept in the emergency department until inpatient bed can be found or his symptoms improve over time. Lab Data 05/05/24 18:07 05/05/24 18:07 Labs: Lab Results 05/05/24 05/05/24 Range/Units 18:07 21:34 WBC 4.1 L (4.8-10.8) X10*3/uL RBC 4.98 D (4.60-5.80) X10*6/uL Hgb 15.4 D (14.0-18.0) g/dl Hct 43.5 D (42.0-52.0) % MCV 87.3 (80.0-98.0) fL MCH 30.9 (27.0-33.0) pg MCHC 35.4 (31.0-36.0) g/dl RDW 13.4 (11.0-16.0) % Plt Count 315 D (160-400) X10*3/uL MPV 8.0 L (9.4-12.4) fL Immature Gran % (Auto) 0.0 (0.0-0.4) % Neut % (Auto) 48.8 (45-73) % Lymph % (Auto) 40.0 (20-40) % [place] % (Auto) 10.0 (2-11) % Eos % (Auto) 0.5 (0-4) % Baso % (Auto) 0.7 (0-2) % Lymph # (Auto) 1.6 (1.2-4.9) X10*3/uL [place] # (Auto) 0.4 (0.1-1.2) X10*3/uL Eos # (Auto) 0.0 (0.0-0.4) X10*3/uL Baso # (Auto) 0.0 (0.0-0.2) X10*3/uL Abs Immat Gran (auto) 0.00 (0.00-0.03) X10*3/uL Absolute Neuts (auto) 2.0 (2.0-8.3) x10*3/uL Absolute Nucleated RBC 0.000 (0.0-0.012) X10*3/uL Nucleated RBC % (auto) 0.0 (0.0-0.2) /100WBC Sodium 143 (135-145) mmol/L Potassium 4.0 (3.3-5.1) mmol/L Chloride 103 (96-108) mmol/L Carbon Dioxide 27 (22-29) mmol/L Anion Gap 17 (12-20) BUN 13 (9-16) mg/dL Creatinine 0.89 (0.5-1.4) mg/dL Estim Creat Clear Calc 116.9 Estimated GFR > 60 Random Glucose 91 (60-115) mg/dL Calcium 8.8 (8.4-10.2) mg/dL Total Bilirubin 0.4 (0.0-1.0) mg/dL Direct Bilirubin 0.2 (0.0-0.5) mg/dL AST 62 H (5-37) U/L ALT 51 H (0-40) U/L Alkaline Phosphatase 98 (39-117) U/L Total Protein 7.9 (6.5-8.0) g/dL Albumin 4.3 (3.5-5.0) g/dL Urine Opiates Screen Not Detected (Not Detect) Ur Buprenorphine Scrn Not Detected (Not Detect) ng/mL Ur Oxycodone Screen Not Detected (Not Detect) ng/mL Urine Methadone Screen Not Detected (Not Detect) ng/mL Urine Fentanyl Screen Not Detected (Not Detect) Ur Barbiturates Screen POSITIVE H (Not Detect) Ur Phencyclidine Scrn Not Detected (Not Detect) Ur Amphetamines Screen Not Detected (Not Detect) U Benzodiazepines Scrn Not Detected (Not Detect) Urine Cocaine Screen Not Detected (Not Detect) U Marijuana (THC) Screen Not Detected (Not Detect) Ethyl Alcohol 384 H* mg/dL Discharge Plan Discharge Clinical Impression: Alcohol intoxication, Anxiety, Suicidal ideation Patient Disposition: Still a Patient Prescriptions: No Action clonidine HCl 0.1 mg Tablet 0.1 mg PO Q4H PRN (Reason: anxiety/insomnia) 30 Days Qty: 90 1RF Protocol: Hold for SBP< HOLD for SBP < : 90 acetaminophen 325 mg Tablet 650 mg PO Q4H PRN (Reason: Pain, Mild (Pain Scale 1-3)) Qty: 0 0RF hydroxyzine HCl 50 mg Tablet 150 mg PO BEDTIME 30 Days Qty: 90 1RF sertraline 100 mg tablet 150 mg PO DAILY 30 Days Qty: 45 1RF Interventions: [place]-Suicide Risk Severity Scale Last Done: 05/05/24 17:54 Print Language: Belarusian
--- NOTE | 2024-05-06 00:36 | PC.NURSE ---
Took report from off-going RN at 2300 hrs. Pt is a 33 y/o male who presents for alcohol intoxication and increased feelings of dpression. BAL @ 1800 384. Has been medically cleared and able to discharge with sober ride. Pt is calm and cooperative, arousable with verbal stimuli. Since shift change, pt has been intermittently resting in bed, changing positions as desired. Independent with ambulation and toileting. Pt reports that he believes he is withdrawing from alcohol, reports uncontrolled shaking and a headache, but does not report any other symptoms/concerns. VS are stable and pt is afebrile. Provider aware. Will continue to monitor for changes.
--- NOTE | 2024-05-06 00:47 | PC.NURSE ---
Took report from off-going RN at 2300 hrs. Pt is a 45 y/o female who presents for thoughts of SI and an overdose on fentanyl. Pt is calm and cooperative, appropriate with staff. Easily arousable with verbal stimuli. Pt has been evaluated by care team and pending admission.
[2024-05-06] MEDS: Acetaminophen 325 MG TABLET 975 MG PO ×2 (01:11→09:39)
[2024-05-06] MEDS: LORazepam 0.5 MG TABLET PO (01:11)
--- NOTE | 2024-05-06 04:19 | PC.NURSE ---
Pt is resting in bed, appears comfortable and changes positions independently as desired. Easily arousable with verbal stimuli. Skin is W/P/D. No acute distress observed. Medications given per MAR. No visible or reported symtpoms of withdrawal observed/reported. Safety checks have been ongoing every 15 min since 2300 hrs. Final disposition is pending. Will continue to monitor for any changes.
[2024-05-06] MEDS: LORazepam 1 MG TABLET 2 MG PO (08:08)
--- NOTE | 2024-05-06 08:46 | PC.NURSE ---
Pt reports feeling like he is withdrawing from Etoh. CIWA score of 11. Pt vomiting, some mild tremors noted, pt also reporting headache. Dr. Sanchez at bedside. Plan for patient to be moved to ED for phenobarb protocol. liquor inspectorIGNACIO cline
--- NOTE | 2024-05-06 08:56 | PC.NURSE ---
Pt exited room after Dr. Sanchez finished meeting with him. Pt requesting water but then proceeded to start shaking intensely. He began apologizing, then sat in the chair in the hallway. He reports that he feels like the withdrawal symptoms are worsening. Dr. Sanchez witnessed event. Pt being transported to ED now with MARIA ESTHER Yen and security
[2024-05-06] MEDS: PHENobarbitaL sodium 130 MG/ML IM ONCE 400 MG IM (09:40)
--- NOTE | 2024-05-06 11:26 | PC.NURSE ---
Late Entry: Pt brought over from ED Pod, report taken from RN Kristi. Upon arrival to ED bed 12, pt visible tremors, diaphoretic, nausea, no vomiting, tachycardic and tachypneic. Pt medicated per OCT with first phenobarb dose, IM in left deltoid. Last CIWA , MD Sanchez aware. Pt resting quietly in bed, respirations even and unlabored, lung sounds cta bilaterally. Denies cp/sob/diarrhea/dizziness/pain. Call frey within reach, all needs met at this time.
--- NOTE | 2024-05-06 13:33 | PC.NURSE ---
Second Phenobarb administration delayed d/t not in pyxis. Pharmacy notified.
[2024-05-06] MEDS: PHENobarbitaL sodium 130 MG/ML VIAL IM Q3Hx2 300 MG IM ×2 (13:41→16:48)
--- NOTE | 2024-05-06 20:06 | MHC.EDTECH ---
Patient was given dinner ate 100 % of meal and drank 720 ml fluids .Call frey within Pt reach .
[2024-05-06] MEDS: PHENobarbitaL 30 MG TABLET 60 MG PO (20:27)
[2024-05-06] MEDS: Acetaminophen 325 MG TABLET 650 MG PO (21:03)
[2024-05-06] MEDS: hydrOXYzine HCL 50 MG TABLET 150 MG PO (21:03)
[2024-05-07] VITALS (7 sets, daily range): BP systolic 114–132; BP diastolic 72–97; PULSE 62–89; RESP 16–20; TEMP 36.6–36.9; O2SAT 96–98
[2024-05-07] MEDS: cloNIDine HCL 0.1 MG TABLET PO ×3 (09:10→23:04)
[2024-05-07] MEDS: Sertraline HCL 50 MG TABLET 150 MG PO (09:11)
[2024-05-07] MEDS: PHENobarbitaL 30 MG TABLET 60 MG PO ×2 (09:11→20:06)
[2024-05-07] MEDS: Acetaminophen 325 MG TABLET 650 MG PO (11:43)
--- NOTE | 2024-05-07 11:46 | PC.NURSE ---
Administered PRN Tylenol for reported PARKER. Pt is found resting comfortably with eyes closed. Easily aroused with verbal stimulation. CIWA 3 at this time. Pt offers no other complaints and reports he was getting quality rest at this time.
--- NOTE | 2024-05-07 13:45 | PC.NURSE ---
pt has question regarding inpt bed search vs. waiting for placement in the community setting, care team notified, plan to meet w pt today for reeval most likely after 1500. pt aware of plan of care.
[2024-05-07] MEDS: Ibuprofen 600 MG TABLET PO (15:39)
--- NOTE | 2024-05-07 16:29 | PC.NURSE ---
Pt requesting to be discharged, pt aware that he is on a [id number] and is unable to leave. CARE team Dayron spoke with patient for mental status update and patient is to remain a S12a inpatient bedsearch. pt then approached this RN again to ask about the possibility of discharge. This RN reiterated that he cannot leave. Pt understanding but verbalizes upset stating I am at a pivotal moment in my life where I don't have the time to go inpatient . This RN verbalizes understanding of scenario however reaffirmed that patient will be going inpatient
--- NOTE | 2024-05-07 19:05 | PC.NURSE ---
patient appears to remain resting in communal area at this time, respirations are even and unlabored patient appears in no distress
[2024-05-07] MEDS: hydrOXYzine HCL 50 MG TABLET 150 MG PO (20:07)
[2024-05-08 06:08] VITALS: BP 113/74; PULSE 69; RESP 16; TEMP 36.1; O2SAT 98
[2024-05-08] MEDS: PHENobarbitaL 30 MG TABLET 60 MG PO (08:37)
[2024-05-08] MEDS: Sertraline HCL 50 MG TABLET 150 MG PO (08:38)
[2024-05-08] MEDS: cloNIDine HCL 0.1 MG TABLET PO (08:47)
[2024-05-08] MEDS: Acetaminophen 325 MG TABLET 650 MG PO (08:48)
[2024-05-08 09:16] VITALS: BP 113/74; PULSE 69; RESP 16; TEMP 36.1; O2SAT 98
== END 2024-05-08 09:21 | disposition home or self-care (01) ==
PROVIDERS: Physician Assistant Medical; Emergency Provider Emergency Medicine Emergency Medical Services
DX: F10.120 Alcohol abuse with intoxication, uncomplicated (principal); Y90.8 Blood alcohol level of 240 mg/100 ml or more; F41.9 Anxiety disorder, unspecified; R45.851 Suicidal ideations; F32.A Depression, unspecified; F41.0 Panic disorder [episodic paroxysmal anxiety]; F19.10 Other psychoactive substance abuse, uncomplicated; Z79.899 Other long term (current) drug therapy
CPT/HCPCS: 36415; 80048; 80076; 80307; 85025; 96372; 99285; J2560; S9485